=== PATIENT | male | born 1955 | race Caucasian/White ===

== ENCOUNTER → 2016-06-29 | Outpatient (CLI) | payer OTHER ==
--- NOTE | 2016-06-29 23:14 | MR ---
EXAMINATION TYPE: MR hip RT wo con DATE OF EXAM: 06/29/2016 4:17 PM COMPARISON: NONE HISTORY: Neoplasm related pain, Weakness Standard multiplanar, multisequence MRI departmental protocol Multiplanar, multisequence images of the right hip were acquired. FINDINGS: Hip joint spaces are fairly well-maintained for age. I see no bony destructive process. The re is no sign of hip joint effusion. There is no evidence of a fracture. There is no evidence of pelv ic mass. There is fluid signal in the scrotum on the right side could relate to hydrocele. Sacroiliac joints appear normal. IMPRESSION: Negative MR scan of the right hip. No evidence of hip dysplasia or avascular necrosis. No sign of met astatic disease. Possible right-sided scrotal hydrocele.
== END | disposition home or self-care (01) ==
LOC: RADMRIMAIN 15:25
PROVIDERS: ATTEND Registered Nurse Oncology
DX: M25.551 Pain in right hip (principal)

== ENCOUNTER → 2016-08-11 | Outpatient (CLI) | payer OTHER ==
[2016-08-11 11:48] LABS: Blood Urea Nitrogen 14 mg/dL (9-20); Non-African American GFR(MDRD) >60 (>60 ml/min/1.73 sqM)
--- NOTE | 2016-08-11 13:20 | CT ---
EXAMINATION TYPE: CT chest w con DATE OF EXAM: 08/11/2016 12:21 PM COMPARISON: NONE HISTORY: Patient has no complaints at time of study. Follow up study for known lung CA. CT DLP: 277.6 mGycm Automated exposure control for dose reduction was used. CONTRAST: CT scan of the chest is performed with IV Contrast, patient injected with 100 mL of Omnipaque 300. FINDINGS: LUNGS: 3 spiculated lesions are noted. The lingular lesion is stable. The right middle lobe lesion is slightly decreased in size and now measures approximately 2.4 x 1.5 x 2 cm, on previous exam it enrique ured approximately 2.6 x 2.2 x 2 cm. The right upper lobe lesion measures approximately 5.3 x 5.3 x 4 .5 cm and on previous exam measured approximately 4.9 x 4.4 x 6 cm. The configuration of the right up per lobe lesion is somewhat different, there are extensive spiculated margins with extensions to the pleura and mediastinum, right hilum. Right hilar nodes, subcarinal no show similar appearance. There are coronary artery calcifications. Ascending aorta measures approximately 4.2 cm. There are coronary artery calcifications. No pleural or pericardial effusion. The adrenal glands show associated soft t issue densities bilaterally similar to prior exam. Liver shows low attenuation. Calcifications are as sociated with the spleen. IMPRESSION: Interval changes as described. MEDIASTINUM: There are no greater than 1 cm hilar or mediastinal lymph nodes. No pericardial effusi on is seen. AORTA: No additional significant abnormality is seen. OTHER: No additional significant abnormality is seen. IMPRESSION:
== END | disposition home or self-care (01) ==
LOC: RADCTMAIN 10:55
PROVIDERS: ATTEND Internal Medicine Hematology & Oncology
DX: C34.90 Malignant neoplasm of unspecified part of unspecified bronchus or lung (principal); I25.10 Atherosclerotic heart disease of native coronary artery without angina pectoris
CPT/HCPCS: 82565; 84520; 71260; 36415; Q9967

== ENCOUNTER 2016-09-11 09:48 | Inpatient (IN) | payer OTHER ==
[2016-09-11] MEDS ORDERED: ACETAMINOPHEN IV (For NPO) 1,000 MG in EMPTY BAG 1 BAG IVPB STA (10:17)
[2016-09-11] MEDS ORDERED: RX INFO: IV CONTRAST WAS GIVEN 1 EACH MISC MISCELLANE PRN (10:18)
--- NOTE | 2016-09-11 10:20 | ED ---
General Adult HPI - General Chief complaint: Nausea/Vomiting/Diarrhea Stated complaint: vomiting Time Seen by Provider: 09/11/16 10:14 Source: patient, family, RN notes reviewed Mode of arrival: ambulatory Limitations: no limitations - History of Present Illness Initial comments: Patient is a pleasant 21-year-old male presenting to the emergency department for not feeling well. Symptoms have been present for over a week. Patient feels weak all over. Patient is fatigued and achy. Patient has been vomiting. Decreased oral intake. Patient has some mild abdominal discomfort. Mild cough. No dyspnea. No confusion or isolated area of weakness. - Related Data Home Medications Medication Instructions Recorded Confirmed Hydrocortisone [Hydrocortisone] 10 mg PO BID 09/11/16 09/11/16 Allergies Allergy/AdvReac Type Severity Reaction Status Date / Time No Known Allergies Allergy Verified 09/11/16 11:15 Review of Systems ROS Statement: Those systems with pertinent positive or pertinent negative responses have been documented in the HPI. ROS Other: All systems not noted in ROS Statement are negative. Constitutional: Reports: fever, chills Eyes: Denies: eye pain ENT: Denies: ear pain Respiratory: Reports: cough. Denies: dyspnea Cardiovascular: Denies: chest pain Endocrine: Reports: fatigue Gastrointestinal: Reports: abdominal pain, nausea, vomiting Genitourinary: Denies: dysuria Musculoskeletal: Denies: back pain Skin: Denies: rash Neurological: Denies: weakness Past Medical History Past Medical History: COPD Additional Past Medical History / Comment(s): lung cx. History of Any Multi-Drug Resistant Organisms: None Reported Past Surgical History: No Surgical Hx Reported Past Psychological History: No Psychological Hx Reported Smoking Status: Current every day smoker Past Alcohol Use History: Heavy Additional Past Alcohol Use History / Comment(s): has not drank in three months General Exam Limitations: no limitations General appearance: alert, other (Patient appears uncomfortable) Head exam: Present: atraumatic Eye exam: Present: other (Right eye is atrophied) ENT exam: Present: mucous membranes dry Neck exam: Present: normal inspection Respiratory exam: Present: normal lung sounds bilaterally Cardiovascular Exam: Present: tachycardia GI/Abdominal exam: Present: soft, tenderness (Mild diffuse). Absent: distended , guarding, rebound, rigid Extremities exam: Present: normal inspection. Absent: pedal edema, calf tenderness Neurological exam: Present: alert. Absent: motor sensory deficit Psychiatric exam: Present: normal affect, normal mood Skin exam: Present: normal color Course Vital Signs 09/11/16 09/11/16 09/11/16 10:07 10:09 11:09 Temperature 101.3 F H Pulse Rate 118 H 115 H 111 H Respiratory 20 18 Rate Blood Pressure 86/50 97/66 103/70 O2 Sat by Pulse 98 99 100 Oximetry 09/11/16 09/11/16 12:00 13:00 Temperature Pulse Rate 100 92 Respiratory Rate Blood Pressure 107/70 97/58 O2 Sat by Pulse 100 100 Oximetry EKG Findings - EKG Comments: EKG Findings:: Sinus tachycardia 112. Normal intervals. Left axis. Normal QRS. Normal ST-T. Medical Decision Making - Medical Decision Making Patient reevaluated and improved. Blood pressure stable. Patient still feels somewhat dehydrated and nauseated. Case discussed in detail with Dr. Winston, who will admit his patient. Case also discussed with Dr. Willis who recommends antibiotics and will evaluate. - Lab Data Result diagrams: 09/11/16 11:20 09/11/16 11:20 Lab Results 09/11/16 09/11/16 09/11/16 Range/Units 10:30 11:20 11:20 WBC 11.1 H (3.8-10.6) k/uL RBC 3.90 L (4.30-5.90) m/uL Hgb 11.2 L (13.0-17.5) gm/dL Hct 36.6 L (39.0-53.0) % MCV 94.0 (80.0-100.0) fL MCH 28.8 (25.0-35.0) pg MCHC 30.6 L (31.0-37.0) g/dL RDW 16.3 H (11.5-15.5) % Plt Count 270 (150-450) k/uL Neutrophils % 70 % Lymphocytes % 14 % Monocytes % 7 % Eosinophils % 6 % Basophils % 1 % Neutrophils # 7.7 (1.3-7.7) k/uL Lymphocytes # 1.6 (1.0-4.8) k/uL Monocytes # 0.8 (0-1.0) k/uL Eosinophils # 0.7 (0-0.7) k/uL Basophils # 0.1 (0-0.2) k/uL Hypochromasia Moderate Anisocytosis Slight PT (9.0-12.0) sec INR (<1.1) APTT (22.0-30.0) sec Sodium (137-145) mmol/L Potassium (3.5-5.1) mmol/L Chloride (98-107) mmol/L Carbon Dioxide (22-30) mmol/L Anion Gap mmol/L BUN (9-20) mg/dL Creatinine (0.66-1.25) mg/dL Est GFR (MDRD) Af Amer (>60 ml/min/1.73 sqM) Est GFR (MDRD) Non-Af (>60 ml/min/1.73 sqM) Glucose (74-99) mg/dL Plasma Lactic Acid Moshe 1.6 (0.7-2.0) mmol/L Calcium (8.4-10.2) mg/dL Total Bilirubin (0.2-1.3) mg/dL AST (17-59) U/L ALT (21-72) U/L Alkaline Phosphatase (38-126) U/L Total Creatine Kinase (55-170) U/L CK-MB (CK-2) (0.0-2.4) ng/mL CK-MB (CK-2) Rel Index Troponin I (0.000-0.034) ng/mL Total Protein (6.3-8.2) g/dL Albumin (3.5-5.0) g/dL Cortisol ug/dL Urine Color Urine Appearance (Clear) Urine pH (5.0-8.0) Ur Specific [place] (1.001-1.035) Urine Protein (Negative) Urine Glucose (UA) (Negative) Urine Ketones (Negative) Urine Blood (Negative) Urine Nitrite (Negative) Urine Bilirubin (Negative) Urine Urobilinogen (<2.0) mg/dL Ur Leukocyte Esterase (Negative) Urine RBC (0-5) /hpf Urine WBC (0-5) /hpf Ur Squamous Epith Cells (0-4) /hpf Urine Bacteria (None) /hpf Hyaline Casts (0-2) /lpf Urine Mucus (None) /hpf Influenza Type A RNA Not Detected (Not Detectd) Influenza Type B (PCR) Not Detected (Not Detectd) 09/11/16 09/11/16 09/11/16 Range/Units 11:20 11:20 11:20 WBC (3.8-10.6) k/uL RBC (4.30-5.90) m/uL Hgb (13.0-17.5) gm/dL Hct (39.0-53.0) % MCV (80.0-100.0) fL MCH (25.0-35.0) pg MCHC (31.0-37.0) g/dL RDW (11.5-15.5) % Plt Count (150-450) k/uL Neutrophils % % Lymphocytes % % Monocytes % % Eosinophils % % Basophils % % Neutrophils # (1.3-7.7) k/uL Lymphocytes # (1.0-4.8) k/uL Monocytes # (0-1.0) k/uL Eosinophils # (0-0.7) k/uL Basophils # (0-0.2) k/uL Hypochromasia Anisocytosis PT 12.5 H (9.0-12.0) sec INR 1.3 (<1.1) APTT 26.5 (22.0-30.0) sec Sodium 132 L (137-145) mmol/L Potassium 5.5 H (3.5-5.1) mmol/L Chloride 94 L (98-107) mmol/L Carbon Dioxide 22 (22-30) mmol/L Anion Gap 16 mmol/L BUN 35 H (9-20) mg/dL Creatinine 1.70 H (0.66-1.25) mg/dL Est GFR (MDRD) Af Amer 50 (>60 ml/min/1.73 sqM) Est GFR (MDRD) Non-Af 41 (>60 ml/min/1.73 sqM) Glucose 77 (74-99) mg/dL Plasma Lactic Acid Moshe (0.7-2.0) mmol/L Calcium 9.9 (8.4-10.2) mg/dL Total Bilirubin 1.3 (0.2-1.3) mg/dL AST 25 (17-59) U/L ALT 27 (21-72) U/L Alkaline Phosphatase 112 (38-126) U/L Total Creatine Kinase 28 L (55-170) U/L CK-MB (CK-2) <0.2 (0.0-2.4) ng/mL CK-MB (CK-2) Rel Index Troponin I <0.012 (0.000-0.034) ng/mL Total Protein 7.7 (6.3-8.2) g/dL Albumin 3.9 (3.5-5.0) g/dL Cortisol 1 ug/dL Urine Color Urine Appearance (Clear) Urine pH (5.0-8.0) Ur Specific [place] (1.001-1.035) Urine Protein (Negative) Urine Glucose (UA) (Negative) Urine Ketones (Negative) Urine Blood (Negative) Urine Nitrite (Negative) Urine Bilirubin (Negative) Urine Urobilinogen (<2.0) mg/dL Ur Leukocyte Esterase (Negative) Urine RBC (0-5) /hpf Urine WBC (0-5) /hpf Ur Squamous Epith Cells (0-4) /hpf Urine Bacteria (None) /hpf Hyaline Casts (0-2) /lpf Urine Mucus (None) /hpf Influenza Type A RNA (Not Detectd) Influenza Type B (PCR) (Not Detectd) 09/11/16 Range/Units 13:30 WBC (3.8-10.6) k/uL RBC (4.30-5.90) m/uL Hgb (13.0-17.5) gm/dL Hct (39.0-53.0) % MCV (80.0-100.0) fL MCH (25.0-35.0) pg MCHC (31.0-37.0) g/dL RDW (11.5-15.5) % Plt Count (150-450) k/uL Neutrophils % % Lymphocytes % % Monocytes % % Eosinophils % % Basophils % % Neutrophils # (1.3-7.7) k/uL Lymphocytes # (1.0-4.8) k/uL Monocytes # (0-1.0) k/uL Eosinophils # (0-0.7) k/uL Basophils # (0-0.2) k/uL Hypochromasia Anisocytosis PT (9.0-12.0) sec INR (<1.1) APTT (22.0-30.0) sec Sodium (137-145) mmol/L Potassium (3.5-5.1) mmol/L Chloride (98-107) mmol/L Carbon Dioxide (22-30) mmol/L Anion Gap mmol/L BUN (9-20) mg/dL Creatinine (0.66-1.25) mg/dL Est GFR (MDRD) Af Amer (>60 ml/min/1.73 sqM) Est GFR (MDRD) Non-Af (>60 ml/min/1.73 sqM) Glucose (74-99) mg/dL Plasma Lactic Acid Moshe (0.7-2.0) mmol/L Calcium (8.4-10.2) mg/dL Total Bilirubin (0.2-1.3) mg/dL AST (17-59) U/L ALT (21-72) U/L Alkaline Phosphatase (38-126) U/L Total Creatine Kinase (55-170) U/L CK-MB (CK-2) (0.0-2.4) ng/mL CK-MB (CK-2) Rel Index Troponin I (0.000-0.034) ng/mL Total Protein (6.3-8.2) g/dL Albumin (3.5-5.0) g/dL Cortisol ug/dL Urine Color Yellow Urine Appearance Clear (Clear) Urine pH 5.5 (5.0-8.0) Ur Specific [place] 1.044 H (1.001-1.035) Urine Protein Trace H (Negative) Urine Glucose (UA) Negative (Negative) Urine Ketones 1+ H (Negative) Urine Blood Small H (Negative) Urine Nitrite Negative (Negative) Urine Bilirubin Negative (Negative) Urine Urobilinogen <2.0 (<2.0) mg/dL Ur Leukocyte Esterase Negative (Negative) Urine RBC 5 (0-5) /hpf Urine WBC 2 (0-5) /hpf Ur Squamous Epith Cells 2 (0-4) /hpf Urine Bacteria Rare H (None) /hpf Hyaline Casts 10 H (0-2) /lpf Urine Mucus Rare H (None) /hpf Influenza Type A RNA (Not Detectd) Influenza Type B (PCR) (Not Detectd) - Radiology Data Radiology results: report reviewed (Computed tomography scan of the abdomen and pelvis shows chronic cystitis. Stable nonspecific adrenal masses. Gallbladder prominence without evidence of biliary obstruction or gallstone.), image reviewed (Chest x-ray shows large right upper lobe mass redemonstrated.) Disposition Clinical Impression: Dehydration, Vomiting Disposition: ADMITTED IP TO THIS HOSP
[2016-09-11] MEDS: SODIUM CHLORIDE 0.9% 500 ML IV SCH ×4 (10:53→14:00)
[2016-09-11 11:42] LABS: Anisocytosis Slight; Basophils # (A) 0.1 k/uL (0-0.2); Basophils % (A) 1 %; CH 29.2; Eosinophils # (A) 0.7 k/uL (0-0.7); Eosinophils % (A) 6 %; HCT 36.6 % (39.0-53.0); HDW 3.19; HGB 11.2 gm/dL (13.0-17.5); Hypochromasia Moderate; Luc % (Auto) 3; Lymphocytes # (A) 1.6 k/uL (1.0-4.8); Lymphocytes % (A) 14 %; MCH 28.8 pg (25.0-35.0); MCHC 30.6 g/dL (31.0-37.0); Mean Platelet Volume 7.1; Monocytes # (A) 0.8 k/uL (0-1.0); Monocytes % (A) 7 %; Neutrophils # (A) 7.7 k/uL (1.3-7.7); Neutrophils % (A) 70 %; RDW 16.3 % (11.5-15.5); WBC 11.1 k/uL (3.8-10.6); WBC (Perox) 11.48
[2016-09-11 11:49] LABS: INR 1.3 (<1.1); Partial Thromboplastin Time 26.5 sec (22.0-30.0); Prothrombin Time 12.5 sec (9.0-12.0)
[2016-09-11] MEDS ORDERED: MORPHINE SULFATE 4 MG/ML SYRINGE IVP STA ×2 (11:58→15:10)
[2016-09-11 11:59] LABS: Calcium 9.9 mg/dL (8.4-10.2); Potassium 5.5 mmol/L (3.5-5.1); Total Bilirubin 1.3 mg/dL (0.2-1.3); Total Protein 7.7 g/dL (6.3-8.2)
[2016-09-11 12:09] LABS: Creatine Kinase 28 U/L (55-170)
[2016-09-11 12:22] LABS: Creatine Kinase MB <0.2 ng/mL (0.0-2.4); Troponin I <0.012 ng/mL (0.000-0.034)
--- NOTE | 2016-09-11 12:37 | XR ---
EXAMINATION TYPE: XR chest 2V DATE OF EXAM: 09/11/2016 12:34 PM COMPARISON: Chest CT August 11, 2016. HISTORY: Vomiting and fever TECHNIQUE: Frontal and lateral views of the chest are obtained. FINDINGS: There is underlying emphysematous change with persistent spiculated mass or neoplasm in the right upper lobe. There is no focal air space opacity, pleural effusion, or pneumothorax seen. The cardiac silhouette size is within normal limits. The osseous structures are intact. IMPRESSION: Chronic emphysematous change with right upper lobe mass/neoplasm redemonstrated. No sign ificant change from prior. No suspicious acute infiltrate is seen.
--- NOTE | 2016-09-11 12:44 | CT ---
EXAMINATION TYPE: CT abdomen pelvis w con DATE OF EXAM: 09/11/2016 12:26 PM COMPARISON: 03/24/2016 HISTORY: Patient poor historian. Patient complains of back pain and "stomach messed up." CT DLP: 1346 mGycm Automated exposure control for dose reduction was used. CONTRAST: CT scan of the abdomen pelvis is performed with IV Contrast, patient injected with 100 mL of Omnipaqu e 300. FINDINGS- LUNG BASES-subsegmental changes are seen involving both lungs compatible with chronic scar or atelect asis. LIVER/GB-gallbladder measures 7 cm and appears to be prominent in size. No biliary dilation. Liver is homogeneous. PANCREAS- No gross abnormality is seen. SPLEEN-splenic granuloma noted. ADRENALS-stable bilateral adrenal masses most likely related to incidental adenomas. KIDNEYS/BLADDER- no hydronephrosis nephrolithiasis or renal mass. BOWEL- no bowel dilatation. Bowel gas pattern nonspecific. Stomach is nondistended and limited. LYMPH NODES- No greater than 1cm abdominal or pelvic lymph nodes areappreciated. OSSEOUS STRUCTURES-curvature of the spine with degenerative disc disease noted. OTHER- bladder wall thickening correlate for cystitis. Vascular calcification seen with aorta of nor mal caliber. IMPRESSION- 1. Correlate for chronic cystitis 2. Stable nonspecific adrenal masses most likely related to adrenal adenoma 3. Prominence of the gallbladder measuring 7 cm without evidence of biliary obstruction or gallstone. Correlate clinically.
[2016-09-11 13:56] LABS: Appearance,Urine Clear (Clear); Bacteria,Urine Rare /hpf; Bilirubin,Urine Negative (Negative); Glucose,Urine (UA) Negative (Negative); Ketones,Urine 1+ (Negative); Leukocyte Esterase,Urine Negative (Negative); Mucus,Urine Rare /hpf; Nitrite,Urine Negative (Negative); PH, Urine 5.5 (5.0-8.0); Particle Count 2633; Protein,Urine Trace (Negative); RBC,Urine 5 /hpf (0-5); Specific Gravity,Urine 1.044 (1.001-1.035); Squamous Epithelial Cell,Urine 2 /hpf (0-4); UA Billing (MACRO vs. MICRO) MICRO; Urobilinogen,Urine <2.0 mg/dL (<2.0); WBC,Urine 2 /hpf (0-5)
[2016-09-11] MEDS ORDERED: NALOXONE 0.4 MG/ML 1 ML VIAL IV PRN (15:19)
[2016-09-11] MEDS ORDERED: MORPHINE SULFATE 4 MG/ML SYRINGE IV PRN (15:19)
[2016-09-11] MEDS ORDERED: PIPERACILLIN-TAZOBACTAM 3.375 GM in DEXTROSE/WATER 1 50ML.BAG IVPB STA (15:21)
--- NOTE | 2016-09-11 16:53 | US ---
EXAMINATION TYPE: US gallbladder DATE OF EXAM: 09/11/2016 4:00 PM COMPARISON: CT abdomen pelvis from earlier today CLINICAL HISTORY: Gallbladder prominence. EXAM MEASUREMENTS: Liver Length: 16.9 cm Gallbladder Wall: 0.3 cm CBD: 0.6 cm Right Kidney: 9.6 x 4.0 x 4.6 cm TECHNOLOGIST IMPRESSION: extensive overlying midline bowel gas, patient having a lot of pain unable to well hold his breath or position properly for test Pancreas: portions visualized wnl, partially obscured by bowel gas but appears unremarkable on recen t CT Liver: limited visualization , visualized portions WNL Gallbladder: there appears to be some dependant sludge Evidence for sonographic Simpson's sign: No CBD: wnl Right Kidney: wnl Exam is suboptimal due to patient being unable to hold breath as well as shadowing from overlying bow el gas. Gallbladder is not completely anechoic cannot rule out dependent sludge. No shadowing mobile gallstones, pericholecystic fluid collection, or abnormal gallbladder wall thickening. IMPRESSION: Probable limited dependent gallbladder sludge but no ultrasound evidence for acute cholec ystitis.
[2016-09-11] MEDS: SODIUM CHLORIDE 0.9% 1,000 ML IV SCH ×2 (17:04→23:03)
[2016-09-11 19:36] LABS: Creatine Kinase 38 U/L (55-170)
[2016-09-11 19:49] LABS: Creatine Kinase MB <0.2 ng/mL (0.0-2.4); Troponin I <0.012 ng/mL (0.000-0.034)
[2016-09-11] MEDS: PIPERACILLIN-TAZOBACTAM 3.375 GM in DEXTROSE/WATER 1 50ML.BAG IVPB SCH (23:00)
[2016-09-12 01:14] LABS: Creatine Kinase 41 U/L (55-170)
[2016-09-12 01:27] LABS: Creatine Kinase MB 0.2 ng/mL (0.0-2.4); Troponin I <0.012 ng/mL (0.000-0.034)
[2016-09-12] MEDS: PANTOPRAZOLE 40 MG/10 ML VIAL IV SCH (07:47)
[2016-09-12] MEDS: PIPERACILLIN-TAZOBACTAM 3.375 GM in DEXTROSE/WATER 1 50ML.BAG IVPB SCH ×3 (07:48→23:12)
[2016-09-12] MEDS: MORPHINE SULFATE 2 MG/ML SYRINGE IVP PRN ×2 (08:14→15:40)
[2016-09-12 09:09] LABS: Anisocytosis Slight; Basophils % (A) 1 %; CH 29.3; CHCM 31.1; Eosinophils # (A) 0.6 k/uL (0-0.7); Eosinophils % (A) 8 %; HCT 31.2 % (39.0-53.0); HDW 3.21; Hypochromasia Moderate; Luc # (Auto) 0.19; Luc % (Auto) 3; Lymphocytes # (A) 0.9 k/uL (1.0-4.8); Lymphocytes % (A) 13 %; MCH 29.3 pg (25.0-35.0); MCHC 31.2 g/dL (31.0-37.0); Mean Platelet Volume 7.1; Monocytes # (A) 0.6 k/uL (0-1.0); Monocytes % (A) 9 %; Neutrophils # (A) 4.8 k/uL (1.3-7.7); Neutrophils % (A) 68 %; RBC 3.32 m/uL (4.30-5.90); RDW 16.1 % (11.5-15.5); WBC 7.1 k/uL (3.8-10.6); WBC (Perox) 7.64
[2016-09-12 09:11] LABS: HGB 9.7 gm/dL (13.0-17.5)
[2016-09-12 10:16] LABS: ALT 22 U/L (21-72); AST 24 U/L (17-59); Alkaline Phosphatase 98 U/L (38-126); Anion Gap 12 mmol/L; Blood Urea Nitrogen 22 mg/dL (9-20); Calcium 9.6 mg/dL (8.4-10.2); Carbon Dioxide 24 mmol/L (22-30); Chloride 96 mmol/L (98-107); Glucose 66 mg/dL (74-99); Non-African American GFR(MDRD) 52 (>60 ml/min/1.73 sqM); Potassium 4.9 mmol/L (3.5-5.1); Sodium 132 mmol/L (137-145); Total Protein 6.6 g/dL (6.3-8.2)
[2016-09-12] MEDS: SODIUM CHLORIDE 0.9% 1,000 ML IV SCH ×2 (10:47→21:46)
--- NOTE | 2016-09-12 12:06 | HP ---
SUBJECTIVE: This is a 61-year-old white male with a history of right upper mass, possible lung cancer, came into the ER; however, has been sick for past week, weak all over, fatigued. He has been vomiting, decreased oral intake, mid abdominal discomfort. Mild cough. No confusion. Was found to have dehydration, hyperkalemia the ER, was admitted to the hospital. Home medications include hydrocortisone 10 mg b.i.d. ALLERGIES: Negative. REVIEW OF SYSTEMS: Fourteen-point review of systems negative except for as mentioned in the HPI. PULMONARY: Has a right upper lobe mass, is being followed by Dr. Melendrez. OPHTHALMOLOGIC: Negative. ENT: Negative. CONSTITUTIONAL: Negative. : Negative. MUSCULOSKELETAL: Negative. SKIN: Negative. NEURO: Negative. He has a history of lung cancer, seen by Dr. Wayne Melendrez with history of COPD, but every day smoker, heavy alcohol, although he denies drinking for 3 months. PHYSICAL EXAM: Vital signs are mentioned above. He is alert. OPHTHALMALOGIC: Pupils equal, round, react to light and accommodation. ENT: External ear canals within normal limits. NECK: Supple. RESPIRATORY: Normal lung sounds. CARDIOVASCULAR: Tachycardiac. Heart: S1, S2. EXTREMITIES: Normal on inspection. No pedal edema. No calf tenderness. NEUROLOGIC: Alert and oriented x3. PSYCHIATRIC: Fair mood and affect. SKIN: Normal color. Temperature is 101.3, pulse rate is in the mid 100s, respirations 18 to 20, blood pressures are 80s to 103 over 50s to 70s. O2 sat 98% to 100% on room air, pulse rate 92 to 100, blood pressure as mentioned 97 to 107 over 70 to 58. White count 11.1, hemoglobin is 11.2. Sodium 132, potassium 5.5, BUN 35, creatinine 1.7. Chest x-ray a shows right upper lobe mass. CAT scan shows no significant sludge in the gallbladder. ASSESSMENT: 1. Acute viral syndrome. 2. Acute gastroenteritis, dehydration and vomiting. 3. Lung cancer. 4. Generalized weakness. 5. Hyponatremia. 6. Hyperkalemia. Will check him for the flu. Repeat labs in the morning and consult Dr. Melendrez.
--- NOTE | 2016-09-12 13:47 | P.PN ---
Subjective 61-year-old male being seen this morning on rounds. Patient continues to report generalized abdominal discomfort sensation and nausea no active emesis No stool states urinating no difficulty Patient presented to the emergency room with a chief complaint of feeling nauseated fatigued achy all over with decreased oral intake. Patient reports he is having some mild abdominal discomfort. Patient states the symptoms have been ongoing for approximately a week patient has no surgical history. Patient states is being treated for right upper lobe mass lung cancer. In the emergency room the temp was elevated to 11.3 patient have an ultrasound of the gallbladder report was reviewed indicates probable limited dependent gallbladder sludge but no ultrasound evidence for acute cholecystitis Objective - Vital Signs Vital signs: Vital Signs Temp 99.1 F 09/12/16 07:00 Pulse 90 09/12/16 07:00 Resp 16 09/12/16 07:00 BP 87/56 09/12/16 07:00 Pulse Ox 98 09/12/16 07:00 Intake & Output 09/11/16 09/12/16 09/12/16 18:59 06:59 18:59 Intake Total 100 Output Total 1300 Balance -1200 Intake: Oral 100 Output: Urine 1300 Other: Voiding Method Toilet Toilet Urinal # Voids 1 - Exam Physical exam 61-year-old male pleasant oriented 3 Lungs essentially clear no cough noted Heart S1-S2 audible and regular Abdomen diffuse tenderness across the abdominal wall bowel tones present sensation of nausea no active emesis no stool Extremities no edema - Labs CBC & Chem 7: 09/12/16 08:27 09/12/16 08:27 Labs: Abnormal Lab Results - Last 24 Hours (Table) 09/11/16 09/12/16 09/12/16 Range/Units 18:43 00:00 08:27 RBC 3.32 L (4.30-5.90) m/uL Hgb 9.7 L D (13.0-17.5) gm/dL Hct 31.2 L (39.0-53.0) % RDW 16.1 H (11.5-15.5) % Lymphocytes # 0.9 L (1.0-4.8) k/uL Sodium (137-145) mmol/L Chloride (98-107) mmol/L BUN (9-20) mg/dL Creatinine (0.66-1.25) mg/dL Glucose (74-99) mg/dL Total Creatine Kinase 38 L 41 L (55-170) U/L Albumin (3.5-5.0) g/dL 09/12/16 Range/Units 08:27 RBC (4.30-5.90) m/uL Hgb (13.0-17.5) gm/dL Hct (39.0-53.0) % RDW (11.5-15.5) % Lymphocytes # (1.0-4.8) k/uL Sodium 132 L (137-145) mmol/L Chloride 96 L (98-107) mmol/L BUN 22 H (9-20) mg/dL Creatinine 1.40 H (0.66-1.25) mg/dL Glucose 66 L (74-99) mg/dL Total Creatine Kinase (55-170) U/L Albumin 3.3 L (3.5-5.0) g/dL Assessment and Plan Plan: Impression Present on admission nausea abdominal pain suspect acute viral syndrome Percent admission oral intake nausea vomiting clinical dehydration suspect due to acute gastroenteritis cancer with positive tissue biopsies March 2016 right lung mass cancer Ultrasound of the gallbladder shows no significant sludge in the gallbladder Present on admission mild hyponatremia and hyperkalemia suspect due to clinical dehydration poor oral intake Present on admission acute renal failure suspect due to poor oral intake clinical dehydration Low cortisol level present on admission Plan Continue IV hydration Resume home meds as appropriate Consult Dr. Melendrez known to service Consult Dr. Pgaan recommendations if antibiotics are indicated Surgical consultation Dr. Ro DVT and GI prophylaxis Follow up on urine blood cultures The above dictated assessment and findings were discussed with []. Impression and the plan of care have been dictated as directed. Renata Bowens nurse practitioner acting as a scribe for for [].
[2016-09-12 15:21] VITALS: BMI 23.3
--- NOTE | 2016-09-12 18:37 | P.CONS ---
History of Present Illness - Reason for Consult Consult date: 09/12/16 oncology care Requesting physician: Jose Leon - Chief Complaint progressive hip pain, vomiting, fever - History of Present Illness Mr. Bhandari is a very pleasant male pt of Dr. Johnson who was seen in consult at [facility] 03/25/16 when he presented with chest pain, back pain and 40lb weight loss in 3-4 months. He was found to have a very large RUL mass, 7.4 x 7.0 x 7.0, with RML and AUGUSTO lesions, bilateral adrenal mets were suspected. He had diagnostic endobronchial biopsy with Dr. Lucas 03/28/16 revealing small cell carcinoma. Staging MRI of the brain did revel 1-2 small lesions, pt was completely asymptomatic, plan was to treat systemically and do WBRT after chemo , he was started on carboplatin and etoposide. In May treatment follow up CT chest showed significant improvement, head MRI, stable. In Jun 2016 pt presented with R hip pain, MRI was negative for bone mets, pt used pain meds with decent pain control. He completed 6 cycles of chemo early Jul, he was seen in follow up, CT chest showed stable disease, he was then referred for WBRT , which he completed 1-2 weeks ago. 4-5 days ago he began experiencing right hip pain, radiating down the leg, sharp, difficult to walk or sit, pain meds were no longer helping, the he starting vomiting so his oral intake diminished to near nothing, he was not able to get his symptoms under control so he came to hospital. He had a fever on admit, he denied any known fevers prior to admit. He does feel a little better since admission. Mild oral irritation, no sore throat, mild nauase but no vomiting today, no SOB, cough, his abd is sore from throwing up, he denies black ,bloody or coffee ground emesis, no hematuria , dysuria, diarrhea, he can have trouble with constipation at times, he denies numbness or tingling in the right leg, no swelling. Review of Systems All systems: negative Constitutional: Reports as per HPI Past Medical History Past Medical History: Cancer, COPD, Osteoarthritis (OA) Additional Past Medical History / Comment(s): DX LUNG CANCER - NO SX BUT HAS HAD CHEMO AND RADIATION(COMPLETED 10 TX) ,"ADDISONS DISEASE", RT EYE BLIND SINCE CHILDHOOD NOT SURE OF CAUSE, COPD MENTIONED PER PAST MED HX BUT PT DID'NT HAVE KNOWLEGE OF THIS. History of Any Multi-Drug Resistant Organisms: None Reported Past Surgical History: No Surgical Hx Reported Additional Past Surgical History / Comment(s): BRONCHOSOCPY Past Anesthesia/Blood Transfusion Reactions: No Reported Reaction Past Psychological History: No Psychological Hx Reported Additional Psychological History / Comment(s): PT IS INDEPENDANT, LIVES WITH HIS SISTER.ONE [employer], NO OUTSIDE SERVICES Smoking Status: Former smoker Past Alcohol Use History: Heavy Additional Past Alcohol Use History / Comment(s): STARTED SMOKING AT AGE 12 WORKED HIS WAY UP TO 4 PPD, QUIT , PAST HEAVY USE OF ALCOHOL, QUIT Past Drug Use History: None Reported - Past Family History Mother Family Medical History: Cancer Additional Family Medical History / Comment(s): BREAST CANCER Father Family Medical History: Myocardial Infarction ([place]) Medications and Allergies Home Medications Medication Instructions Recorded Confirmed Type Hydrocortisone [Hydrocortisone] 10 mg PO BID 09/11/16 09/11/16 History Allergies Allergy/AdvReac Type Severity Reaction Status Date / Time No Known Allergies Allergy Verified 09/11/16 11:15 Physical Exam Vitals: Vital Signs Temp Pulse Resp BP BP Pulse Ox 09/12/16 15:00 96.9 F L 98 20 98/57 97 09/12/16 07:00 99.1 F 90 16 87/56 98 09/11/16 22:24 96.3 F L 101 H 20 104/66 97 Intake and Output 09/12/16 09/12/16 09/12/16 06:59 14:59 22:59 Intake Total 100 Output Total 600 Balance -500 Intake: Oral 100 Output: Urine 600 Other: Voiding Method Toilet # Voids 1 Weight 78.018 kg Patient Weight 09/13/16 06:59 Weight 78.018 kg - Constitutional General appearance: average body habitus, cooperative, no acute distress - EENT right eye lens damage, EOMs intact. Reddened oropharynx Eyes: anicteric sclerae - Neck Neck: no lymphadenopathy - Respiratory Respiratory: bilateral: CTA - Cardiovascular Rhythm: regular Heart sounds: normal: S1, S2 leg Peripheral Edema: bilateral: None - Gastrointestinal General gastrointestinal: no absent bowel sounds, no decreased bowel sounds, no distended, no hepatomegaly, no hyperactive bowel sounds, normal bowel sounds, no organomegaly, no rigid, no scaphoid, soft, no splenomegaly, no tenderness, no umbilical hernia, no ventral hernia - Integumentary skin changes to head from radiation - Neurologic Neurologic: CNII-XII intact - Musculoskeletal Musculoskeletal: strength equal bilaterally - Psychiatric Psychiatric: A&O x's 3, appropriate affect, intact judgment & insight Results CBC & Chem 7: 09/12/16 08:27 09/12/16 08:27 Labs: Abnormal Lab Results - Last 24 Hours (Table) 09/11/16 09/12/16 09/12/16 Range/Units 18:43 00:00 08:27 RBC 3.32 L (4.30-5.90) m/uL Hgb 9.7 L D (13.0-17.5) gm/dL Hct 31.2 L (39.0-53.0) % RDW 16.1 H (11.5-15.5) % Lymphocytes # 0.9 L (1.0-4.8) k/uL Sodium (137-145) mmol/L Chloride (98-107) mmol/L BUN (9-20) mg/dL Creatinine (0.66-1.25) mg/dL Glucose (74-99) mg/dL Total Creatine Kinase 38 L 41 L (55-170) U/L Albumin (3.5-5.0) g/dL 09/12/16 Range/Units 08:27 RBC (4.30-5.90) m/uL Hgb (13.0-17.5) gm/dL Hct (39.0-53.0) % RDW (11.5-15.5) % Lymphocytes # (1.0-4.8) k/uL Sodium 132 L (137-145) mmol/L Chloride 96 L (98-107) mmol/L BUN 22 H (9-20) mg/dL Creatinine 1.40 H (0.66-1.25) mg/dL Glucose 66 L (74-99) mg/dL Total Creatine Kinase (55-170) U/L Albumin 3.3 L (3.5-5.0) g/dL Chest x-ray: report reviewed CT scan - abdomen: report reviewed CT scan - pelvis: report reviewed US - abdomen: report reviewed Assessment and Plan (1) Small cell lung carcinoma Status: Chronic (2) Metastatic cancer to brain Status: Chronic (3) Dehydration Narrative/Plan: Pt being hydrated, being followed by IM Status: Acute (4) Vomiting Narrative/Plan: Improved since admit, agree with clear liquid diet and advance slowly Status: Acute (5) Anemia aplastic aregenerative Narrative/Plan: No acute intervention, Hgb drop since admission likely due to hemoconcentration. Recheck CBC in AM Status: Chronic (6) Fever Narrative/Plan: NO fevers since starting abx, pancultures so far negative. Dr. Pagan following Status: Acute Plan: Pt has completed chemotherapy and radiation, he will be due for f/u images soon , he has appt with Dr. Johnson on 10/12, will check with Rad/Onc as he likely follows up with them sooner. Will request imaging of the hip due to progressive nature of pain to ensure no metastatic disease.
--- NOTE | 2016-09-12 19:38 | XR ---
EXAMINATION TYPE: XR femur RT DATE OF EXAM: 09/12/2016 7:31 PM COMPARISON: NONE HISTORY: Chronic pain TECHNIQUE: 4 views FINDINGS: I see no fracture nor dislocation. Hip joint and knee joint appear intact. There is no sign of knee joint effusion. IMPRESSION: Negative right femur exam.
--- NOTE | 2016-09-12 19:41 | XR ---
EXAMINATION TYPE: XR Hip Complete RT DATE OF EXAM: 09/12/2016 7:31 PM COMPARISON: 03/25/2016 HISTORY: Chronic pain TECHNIQUE: 2 views FINDINGS: I see no fracture nor dislocation. Hip joint space is normal. Sacroiliac joint appears norm al. IMPRESSION: Normal right hip. No change.
--- NOTE | 2016-09-12 21:45 | P.GSCN ---
History of Present Illness Consult date: 09/12/16 Reason for Consult: abdominal pain History of present illness: we were consulted to see this patient for abdominal pain. He has a relatively recent diagnosis of metastatic small cell lung cancer. He has undergone both chemotherapy and radiation therapy to the brain. He has apparently had fairly good success with his treatment thus far. He was seen in the hospital in June with complaints of pain in the right hip radiating down the right leg. Workup for bony metastasis at that time was benign. He comes back to the hospital complaining of abdominal pain associated with episodes of nausea and vomiting. The pain radiates down the right lower abdomen into the groin and hip as well. He does have pain in the back as well. A CAT scan was performed which showed a slightly distended gallbladder.no inflammatory changes were described. An ultrasound was then performed which showed some sludge but no thickening noted. The patient is somewhat vague when he describes the location on the right side of his abdomen for his pain. He was having emesis that was nonbloody. He has chronic constipation last bowel movement 2 days ago. His appetite is slightly diminished.review of the CAT scan does suggest some possible thickening of the cecum and ascending and proximal transverse colon. Patient denies diarrhea. Review of Systems The patient denies any acute changes in his vision or hearing, no dysphagia or odynophagia, no chest pain or shortness of breath, no dysuria or hematuria, no headache, no runny nose, no rectal bleeding or melena, no unexplained weight loss Past Medical History Past Medical History: Cancer, COPD, Osteoarthritis (OA) Additional Past Medical History / Comment(s): DX LUNG CANCER - NO SX BUT HAS HAD CHEMO AND RADIATION(COMPLETED 10 TX) ,"ADDISONS DISEASE", RT EYE BLIND SINCE CHILDHOOD NOT SURE OF CAUSE, COPD MENTIONED PER PAST MED HX BUT PT DID'NT HAVE KNOWLEGE OF THIS. History of Any Multi-Drug Resistant Organisms: None Reported Past Surgical History: No Surgical Hx Reported Additional Past Surgical History / Comment(s): BRONCHOSOCPY Past Anesthesia/Blood Transfusion Reactions: No Reported Reaction Past Psychological History: No Psychological Hx Reported Additional Psychological History / Comment(s): PT IS INDEPENDANT, LIVES WITH HIS SISTER.ONE [employer], NO OUTSIDE SERVICES Smoking Status: Former smoker Past Alcohol Use History: Heavy Additional Past Alcohol Use History / Comment(s): STARTED SMOKING AT AGE 12 WORKED HIS WAY UP TO 4 PPD, QUIT , PAST HEAVY USE OF ALCOHOL, QUIT Past Drug Use History: None Reported - Past Family History Mother Family Medical History: Cancer Additional Family Medical History / Comment(s): BREAST CANCER Father Family Medical History: Myocardial Infarction ([place]) Medications and Allergies Home Medications Medication Instructions Recorded Confirmed Type Hydrocortisone [Hydrocortisone] 10 mg PO BID 09/11/16 09/11/16 History Allergies Allergy/AdvReac Type Severity Reaction Status Date / Time No Known Allergies Allergy Verified 09/11/16 11:15 Surgical - Exam Vital Signs Temp Pulse Resp BP Pulse Ox 101.3 F H 118 H 20 86/50 98 09/11/16 10:07 09/11/16 10:07 09/11/16 10:07 09/11/16 10:07 09/11/16 10:07 Physical exam: General: Well-developed, well-nourished HEENT: Normocephalic, sclerae nonicteric Abdomen: mild to moderate right mid abdominal tenderness including mild tenderness in the right lower quadrant as well as the right upper quadrant, nondistended, no palpable hernia Extremities: No edema Neuro: Alert and oriented Results - Labs 09/12/16 08:27 09/12/16 08:27 Abnormal Lab Results - Last 24 Hours (Table) 09/12/16 09/12/16 09/12/16 Range/Units 00:00 08:27 08:27 RBC 3.32 L (4.30-5.90) m/uL Hgb 9.7 L D (13.0-17.5) gm/dL Hct 31.2 L (39.0-53.0) % RDW 16.1 H (11.5-15.5) % Lymphocytes # 0.9 L (1.0-4.8) k/uL Sodium 132 L (137-145) mmol/L Chloride 96 L (98-107) mmol/L BUN 22 H (9-20) mg/dL Creatinine 1.40 H (0.66-1.25) mg/dL Glucose 66 L (74-99) mg/dL Total Creatine Kinase 41 L (55-170) U/L Albumin 3.3 L (3.5-5.0) g/dL Diabetes panel 09/12/16 Range/Units 08:27 Sodium 132 L (137-145) mmol/L Potassium 4.9 (3.5-5.1) mmol/L Chloride 96 L (98-107) mmol/L Carbon Dioxide 24 (22-30) mmol/L BUN 22 H (9-20) mg/dL Creatinine 1.40 H (0.66-1.25) mg/dL Glucose 66 L (74-99) mg/dL Calcium 9.6 (8.4-10.2) mg/dL AST 24 (17-59) U/L ALT 22 (21-72) U/L Alkaline Phosphatase 98 (38-126) U/L Total Protein 6.6 (6.3-8.2) g/dL Albumin 3.3 L (3.5-5.0) g/dL Calcium panel 09/12/16 Range/Units 08:27 Calcium 9.6 (8.4-10.2) mg/dL Albumin 3.3 L (3.5-5.0) g/dL Pituitary panel 09/12/16 Range/Units 08:27 Sodium 132 L (137-145) mmol/L Potassium 4.9 (3.5-5.1) mmol/L Chloride 96 L (98-107) mmol/L Carbon Dioxide 24 (22-30) mmol/L BUN 22 H (9-20) mg/dL Creatinine 1.40 H (0.66-1.25) mg/dL Glucose 66 L (74-99) mg/dL Calcium 9.6 (8.4-10.2) mg/dL Adrenal panel 09/12/16 Range/Units 08:27 Sodium 132 L (137-145) mmol/L Potassium 4.9 (3.5-5.1) mmol/L Chloride 96 L (98-107) mmol/L Carbon Dioxide 24 (22-30) mmol/L BUN 22 H (9-20) mg/dL Creatinine 1.40 H (0.66-1.25) mg/dL Glucose 66 L (74-99) mg/dL Calcium 9.6 (8.4-10.2) mg/dL Total Bilirubin 1.0 (0.2-1.3) mg/dL AST 24 (17-59) U/L ALT 22 (21-72) U/L Alkaline Phosphatase 98 (38-126) U/L Total Protein 6.6 (6.3-8.2) g/dL Albumin 3.3 L (3.5-5.0) g/dL Assessment and Plan (1) Abdominal pain Narrative/Plan: given the relatively diffuse nature of his right-sided pain in the CAT scan findings of possible thickening of the colon would treat for possible typhlitis. Continue antibiotics. Continue clear liquid diet. Underlying cholecystitis has not been completely excluded however the patient does have tenderness in the right lower quadrant as well. We'll follow closely with you. Status: Acute
[2016-09-12] MEDS: CLOTRIMAZOLE TROCHE 10 MG TROCHE MUCOUS MEM SCH ×2 (21:46→22:05)
[2016-09-12] MEDS: DOCUSATE 100 MG CAP PO SCH (21:47)
[2016-09-13] MEDS: ACETAMINOPHEN TAB 325 MG TAB PO PRN ×2 (01:30→10:53)
[2016-09-13] MEDS: SODIUM CHLORIDE 0.9% 1,000 ML IV SCH ×2 (04:42→12:08)
[2016-09-13] MEDS: PIPERACILLIN-TAZOBACTAM 3.375 GM in DEXTROSE/WATER 1 50ML.BAG IVPB SCH ×2 (08:29→16:59)
[2016-09-13] MEDS: PANTOPRAZOLE 40 MG/10 ML VIAL IV SCH (08:33)
[2016-09-13] MEDS: CLOTRIMAZOLE TROCHE 10 MG TROCHE MUCOUS MEM SCH ×3 (08:34→22:45)
[2016-09-13] MEDS: DOCUSATE 100 MG CAP PO SCH ×2 (08:34→21:10)
--- NOTE | 2016-09-13 10:53 | CONS ---
DATE OF CONSULTATION: 09/12/2016 REASON FOR CONSULTATION: Fever. HISTORY OF PRESENT ILLNESS: The patient is a 61-year-old male with a past medical history significant for metastatic non-small lung cancer with mets to the brain for the patient has received chemotherapy as well as radiation therapy. The patient presenting to the ER with a chief complaint of vomiting and decreased oral intake and unable to keep anything down. His symptoms have been going on for about 2 to 3 days prior to presentation to the hospital. Patient complaining of some abdominal pain mostly in the upper abdominal area, intensity of 4-5/10 and no radiation. Patient denies significant diarrhea. The patient did spike a fever of 101.3 degrees Fahrenheit. Further blood work-up did including a CT of abdomen and pelvis that shows an enlarged gallbladder. This has been followed by an ultrasound of the gallbladder which shows limited gallbladder sludge but no ultrasound evidence of any acute cholecystitis. The patient did have blood cultures obtained. He has been treated with Zosyn. The patient did have an elevated white count 11.1 on admission. I was asked to see the patient for further recommendations regarding antibiotic therapy. The patient did mention that he had some vomiting, slightly improved though. Currently denies having any diarrhea. He denies any chest pain or shortness of breath. No cough. REVIEW OF SYSTEMS: CONSTITUTIONAL: Positive for weakness along with fever. EYES: No complaint. HEENT: No complaint. RESPIRATORY: No complaint. CARDIOVASCULAR: No complaint. GENITOURINARY: No complaint. GASTROINTESTINAL: As per HPI. MUSCULOSKELETAL: No complaint. INTEGUMENTARY: No complaint. PSYCHOLOGICAL: No complaint. ENDOCRINE: No complaint. NEUROLOGIC: No complaint. Past medical history significant for metastatic lung cancer with METS to the brain, osteoarthritis, COPD, right eye blindness since childhood. Past surgical history of bronchoscopy with biopsy. SOCIAL HISTORY: Positive for smoking. He has been smoking since age 12, quit back in February of 2016. Did have history of heavy alcohol abuse, quit back in January 2016. FAMILY HISTORY: Mother with history of breast cancer. Father with history of [place]. ALLERGIES: No known drug allergies. Medications currently include the patient is on: 1. Tylenol. 2. Mycelex. 3. Colace. 4. Morphine sulfate. 5. Narcan. 6. Piptazobactam. On examination, blood pressure is 98/57 with a pulse of 90, temperature is 96.9, he is 97% on room air. General description is a middle-age male lying in bed in no distress. No tachypnea or accessory muscle of respiration use. HEENT examination shows no pallor. There is no scleral icterus. Oral mucosa membranes dry. NECK: Trachea central. There is no thyromegaly. LUNGS: Unlabored breathing. Clear to auscultation anteriorly. HEART: S1 and S2. Regular rate and rhythm. ABDOMEN: Soft. No tenderness. Minimally tender in the right upper quadrant. No guarding or rigidity. EXTREMITIES: No edema of feet. SKIN EXAMINATION: No rash or mass palpable. NEUROLOGICAL: Patient is awake, alert, oriented times three. Mood and affect normal. LABS: Hemoglobin 9.7, white count 11.1 on admission and is down to 7.1 with a BUN of 22, creatinine 1.40. Liver enzymes have been normal. Blood culture obtained, currently pending. Urine is so far negative. DIAGNOSTIC IMPRESSION AND PLAN: Patient admitted to the hospital with sepsis in a patient who did have a fever with elevated white count and did have some tachycardia on admission. Source is more likely abdominal with a question of possible gall bladder related. Will be less likely typhlitis as the patient did not have significant diarrhea and was morbidly tender in the lower quadrant area but though cannot be entirely excluded , abnormality seen on the CT by the surgeon. PLAN: 1. The patient will continue with IV antibiotic in the form of Zosyn to which his fever and white count responded. 2. Increase IV fluids. 3. Will follow up on the clinical condition and cultures to further adjust the medication if needed. Thank you for this consultation. We will follow this patient along with you. JN
--- NOTE | 2016-09-13 11:47 | P.PN ---
Subjective Principal diagnosis: Abdominal pain Patient still having pain in the right abdomen. He states the pain radiates down as far as his knee on the right leg. When I tried to have the patient localize better the right upper quadrant and right lower quadrant he states that right in the middle. It is no different than yesterday. Denies nausea or vomiting. His appetite is diminished. No bowel function. White blood cell count normal. Objective - Vital Signs Vital signs: Vital Signs Temp 97.6 F 09/13/16 07:00 Pulse 98 09/13/16 08:00 Resp 16 09/13/16 08:00 BP 90/48 09/13/16 07:00 Pulse Ox 98 09/13/16 07:00 Intake & Output 09/12/16 09/13/16 09/13/16 18:59 06:59 18:59 Intake Total 1420 Output Total 750 Balance 670 Weight 78.018 kg Intake: IV 1320 Sodium Chloride 0.9% 1, 1320 000 ml @ 110 mls/hr IV . Q9H6M [facility] Rx#:[id number] Oral 100 Output: Urine 750 Other: Voiding Method Toilet Urinal Urinal # Voids 1 1 - Exam Abdomen: Soft, nondistended, mild right-sided tenderness, no rebound or guarding - Labs CBC & Chem 7: 09/12/16 08:27 09/12/16 08:27 Assessment and Plan (1) Abdominal pain Narrative/Plan: Infectious disease consultation noted. Will order a HIDA scan without CCK to evaluate cystic duct obstruction. Not convinced at this point that patient's pain is related to his gallbladder given the tenderness in the right lower quadrant and radiation down the right leg. We'll follow closely with you. Status: Acute
[2016-09-13] MEDS ORDERED: MORPHINE SULFATE 2 MG/ML SYRINGE IVP PRN (11:59)
[2016-09-13] MEDS ORDERED: SENNOSIDES 8.6 MG TAB PO PRN (12:03)
[2016-09-13] MEDS: POLYETHYLENE GLYCOL 3350 17 GM POWD.PACK PO SCH (12:07)
[2016-09-13] MEDS: SENNOSIDES 8.6 MG TAB PO SCH ×2 (12:07→21:11)
--- NOTE | 2016-09-13 12:52 | P.PN ---
Subjective 61-year-old being seen this morning on rounds patient continues to report having generalized abdominal pain difficult to pinpoint the area. Patient states he has chronic back pain takes [place] at home. Patient's currently being followed by surgical service recommendations reviewed. The plan is to do a HIDA scan without CCK to evaluate cystic duct obstruction. Surgery indicates there is no convincing evidence at this point that the patient's pain is related to his gallbladder given that the patient has tenderness to the right lower quadrant that radiates down the right leg Additionally patient was seen by hematology oncology. Patient's primary oncologist is Dr. starr who has been treating the patient for a large right upper lung mass with bilateral adrenal metastases suspected. Patient has completed 6 cycles of chemo early July 2016 a follow-up chest x-ray showed stable disease and then patient has been referred to WBRT. Patient reportedly has completed the treatment about 2 weeks ago. 4-5 days ago he started experiencing the right hip pain which he states has radiating down his legs difficult to box it. Patient states pain medication were and was not really helping him and he was having a sensation of nausea with poor oral intake came into the emergency room for the above-mentioned symptoms. Hematology oncology indicated that they will they will request imaging of the hip due to progressive nature of the pain to ensure that there is no metastatic disease. Patient has completed his chemoradiation therapy is due for follow-up injury images soon he has an appointment with DR STARR on October 12 the hospice case manager is pursuing the discharge plan. The patient is indicating that he is interested in subacute rehab patient's preference is [facility] Objective - Vital Signs Vital signs: Vital Signs Temp 97.6 F 09/13/16 07:00 Pulse 98 09/13/16 08:00 Resp 16 09/13/16 08:00 BP 90/48 09/13/16 07:00 Pulse Ox 98 09/13/16 07:00 Intake & Output 09/12/16 09/13/16 09/13/16 18:59 06:59 18:59 Intake Total 1420 Output Total 750 Balance 670 Weight 78.018 kg Intake: IV 1320 Sodium Chloride 0.9% 1, 1320 000 ml @ 110 mls/hr IV . Q9H6M [facility] Rx#:[id number] Oral 100 Output: Urine 750 Other: Voiding Method Toilet Urinal Urinal # Voids 1 1 - Exam Physical exam 61-year-old male pleasant oriented 3 sitting up in bed reports having chronic lower back pain with pain in the right hip goes down to the right leg which he states is chronic pain medication at home has not been helping" Lungs essentially clear no cough noted sats are documented 98% Heart S1-S2 audible and regular denying chest pain Abdomen diffuse tenderness across the abdominal wall bowel tones present sensation of nausea no active emesis no stool Extremities no edema upper or lower extremities - Labs CBC & Chem 7: 09/12/16 08:27 09/12/16 08:27 Assessment and Plan Plan: Impression Present on admission nausea abdominal pain suspect acute viral syndrome Percent admission oral intake nausea vomiting clinical dehydration suspect due to acute gastroenteritis History of cancer with positive tissue biopsies March 2016 right lung mass cancer Ultrasound of the gallbladder shows no significant sludge in the gallbladder Present on admission mild hyponatremia and hyperkalemia suspect due to clinical dehydration poor oral intake Present on admission acute renal failure suspect due to poor oral intake clinical dehydration Low cortisol level present on admission 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 Anemia aplastic aregenerative chronic no acute intervention hemoglobin dropped since admission likely due to hemoconcentration Present on admission acute Fever pancultures negative infectious disease following Former smoker greater than 4 packs a day quit February 2016 greater than a 40 year history with probable COPD not diagnosed History of chronic alcoholism quit January 2016 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 not sure of the etiology Right hip pain with complete right hip x-ray and femur showing no fracture no dislocation negative imaging Plan Continue IV hydration Resume home meds as appropriate Follow up on the HIDA scan Consult Dr. Pagan recommendations if antibiotics are indicated PT OT eval Possible subacute rehab hospice case manager pursuing the discharge plan DVT and GI prophylaxis Follow up on urine & blood cultures The above dictated assessment and findings were discussed with []. Impression and the plan of care have been dictated as directed. Renata Bowens nurse practitioner acting as a scribe for for [].
--- NOTE | 2016-09-13 16:54 | NM ---
EXAMINATION TYPE: NM hepatobiliary w EF DATE OF EXAM: 09/13/2016 4:47 PM COMPARISON: Gallbladder ultrasound from 2 days ago. HISTORY: Right-sided abdominal pain. TECHNIQUE: After the intravenous administration of 5.5 mCi Tc 99m Mebrofenin hepatobiliary scintigrap hy is performed. Immediate images post injection. FINDINGS: There is satisfactory initial accumulation of tracer by the liver. The gallbladder is visualized wit hin 90 minutes. The small bowel activity is noted within 35 minutes. At 90 minutes 8 ounces of oral ensure plus is given to mimic CCK and gallbladder ejection fraction is calculated at 0% %, diminishe d from the normal range. Therefore there is no scintigraphic evidence of cystic or common bile duct obstruction to suggest acute cholecystitis. IMPRESSION: There is essentially no gallbladder contraction or ejection on stimulus or oral Essure gi jazmine suggesting hypokinesia or akinesia
[2016-09-13] MEDS ORDERED: HYDROCORTISONE 10 MG TAB PO SCH (21:00)
[2016-09-13] MEDS: HYDROCORTISONE 10 MG TAB PO SCH (21:13)
[2016-09-13] MEDS: FAMOTIDINE 20 MG TAB PO SCH (21:13)
[2016-09-14] MEDS: PIPERACILLIN-TAZOBACTAM 3.375 GM in DEXTROSE/WATER 1 50ML.BAG IVPB SCH ×3 (01:50→15:31)
[2016-09-14] MEDS: SODIUM CHLORIDE 0.9% 1,000 ML IV SCH ×3 (01:51→15:34)
--- NOTE | 2016-09-14 08:06 | PN ---
DATE OF SERVICE: 09/13/2016 REASON FOR FOLLOWUP: Fever and vomiting and a question of possible acalculous cholecystitis. INTERVAL HISTORY: The patient is afebrile. He did mention he had some episodes of vomiting this morning. He did have some pain in the right-sided abdominal area. Denies having any diarrhea or constipation. Denies having any chest pain or shortness of breath or cough. On examination, blood pressure is 112/60 with a pulse of 97, temperature 98.1.He is 95% on room air. General description is a middle-age male lying in bed in no distress. RESPIRATORY SYSTEM: Unlabored breathing. Clear to auscultation anteriorly. HEART: S1, S2. Regular rate and rhythm. ABDOMEN: Soft. He is mildly tender right upper quadrant area and minimal guarding. No rigidity. EXTREMITIES: No edema of the feet. LABS: Hemoglobin 9.7, white count 7.1 with a BUN of 22, creatinine 1.4. HIDA scan with biliary akinesia. DIAGNOSTIC IMPRESSION AND PLAN: Patient with vomiting and a fever with a question of possible acalculous cholecystitis. As the patient did have evidenced of biliary dyskinesia, the patient is being followed by surgery. Will continue the patient on Zosyn at this point. Continue supportive care. FLAKITOD
[2016-09-14] MEDS: POLYETHYLENE GLYCOL 3350 17 GM POWD.PACK PO SCH (08:19)
[2016-09-14] MEDS: SENNOSIDES 8.6 MG TAB PO SCH ×2 (08:19→20:06)
[2016-09-14] MEDS: DOCUSATE 100 MG CAP PO SCH ×2 (08:19→20:06)
[2016-09-14] MEDS: CLOTRIMAZOLE TROCHE 10 MG TROCHE MUCOUS MEM SCH ×3 (08:19→22:49)
[2016-09-14] MEDS: HYDROCORTISONE 10 MG TAB PO SCH (08:20)
[2016-09-14 09:34] LABS: ALT 17 U/L (21-72); AST 24 U/L (17-59); Alkaline Phosphatase 115 U/L (38-126); Amylase 32 U/L (30-110); Anion Gap 14 mmol/L; Blood Urea Nitrogen 12 mg/dL (9-20); Calcium 9.6 mg/dL (8.4-10.2); Carbon Dioxide 25 mmol/L (22-30); Chloride 97 mmol/L (98-107); Glucose 93 mg/dL (74-99); Non-African American GFR(MDRD) 60 (>60 ml/min/1.73 sqM); Potassium 5.5 mmol/L (3.5-5.1); Sodium 136 mmol/L (137-145); Total Bilirubin 0.8 mg/dL (0.2-1.3); Total Protein 6.9 g/dL (6.3-8.2)
[2016-09-14] MEDS: HYDROcodone/APAP 7.5-325MG 1 EACH TAB PO PRN ×2 (09:52→20:18)
--- NOTE | 2016-09-14 11:54 | P.NPCON ---
History of Present Illness - Reason for Consult acute renal failure - History of Present Illness Reason for consultation: Low cortisol levels History of present illness: Patient is a 61-year-old male seen in renal consultation for low cortisol level. Patient has history of lung cancer with adrenal metastases. He has history of adrenal insufficiency related to adrenal metastasis and was maintained on Cortef 10 mg twice daily as an outpatient. This admission is cortisol level is noted to be low. Patient presented to the hospital with vomiting and fever. He was noted to have biliary dyskinesia and he's been followed by surgery. His oral intake has been poor. He is currently maintained on normal saline at 110 mL an hour and renal function is also improving. His creatinine was elevated at 1.7 and is down to 1.23 today with IV fluids. Sodium levels also 132 and is up to 136 today. His blood pressures are on the lower side in the systolic 80s to 90s on admission and are now in the 90s to 100s. Patient is not a very reliable historian. He is nonoliguric. Vital signs are stable. General: The patient appeared well nourished and normally developed. HEENT: Head exam is unremarkable. Neck is without jugular venous distension. LUNGS: Lungs are clear to auscultation and percussion. Breath sounds decreased. HEART: Rate and Rhythm are regular. First and second heart sounds normal. No murmurs, rubs or gallops. ABDOMEN: Abdominal exam reveals normal bowel sounds. Non-tender and non- distended. No evidence of peritonitis. EXTREMITITES: No clubbing, cyanosis, or edema. Past Medical History Past Medical History: Cancer, COPD, Osteoarthritis (OA) Additional Past Medical History / Comment(s): DX LUNG CANCER - NO SX BUT HAS HAD CHEMO AND RADIATION(COMPLETED 10 TX) ,"ADDISONS DISEASE", RT EYE BLIND SINCE CHILDHOOD NOT SURE OF CAUSE, COPD MENTIONED PER PAST MED HX BUT PT DID'NT HAVE KNOWLEGE OF THIS. History of Any Multi-Drug Resistant Organisms: None Reported Past Surgical History: No Surgical Hx Reported Additional Past Surgical History / Comment(s): BRONCHOSOCPY Past Anesthesia/Blood Transfusion Reactions: No Reported Reaction Past Psychological History: No Psychological Hx Reported Additional Psychological History / Comment(s): PT IS INDEPENDANT, LIVES WITH HIS SISTER.ONE [employer], NO OUTSIDE SERVICES Smoking Status: Former smoker Past Alcohol Use History: Heavy Additional Past Alcohol Use History / Comment(s): STARTED SMOKING AT AGE 12 WORKED HIS [address] UP TO 4 PPD, QUIT , PAST HEAVY USE OF ALCOHOL, QUIT Past Drug Use History: None Reported - Past Family History Mother Family Medical History: Cancer Additional Family Medical History / Comment(s): BREAST CANCER Father Family Medical History: Myocardial Infarction (VT) Medications and Allergies Home Medications Medication Instructions Recorded Confirmed Type Hydrocortisone [Hydrocortisone] 10 mg PO BID 09/11/16 09/11/16 History Allergies Allergy/AdvReac Type Severity Reaction Status Date / Time No Known Allergies Allergy Verified 09/11/16 11:15 Physical Exam Vitals: Vital Signs Temp Pulse Pulse Resp BP Pulse Ox 09/14/16 07:00 97.4 F L 85 18 106/70 97 09/13/16 23:00 99.4 F 99 18 99/59 97 09/13/16 18:10 98.1 F 97 16 112/60 95 09/13/16 15:49 98 84 16 Intake and Output 09/13/16 09/14/16 09/14/16 22:59 06:59 14:59 Intake Total 240 120 Output Total 600 Balance 240 -480 Intake: Oral 240 120 Output: Urine 600 Other: Voiding Method Urinal # Voids 1 1 Results - Lab Results Most recent lab results Calcium 9.6 mg/dL (8.4-10.2) 09/14/16 09:01 09/12/16 08:27 09/14/16 09:01 Assessment and Plan Plan: Assessment: #1. Nonoliguric acute kidney injury mostly prerenal in nature secondary to intravascular volume depletion related to poor oral intake and vomiting. Improving with IV hydration. Creatinine down to 1.23. Peaked at 1.7 this admission. #2. Hypovolemic hyponatremia improving with IV fluids. #3. History of adrenal insufficiency secondary to adrenal metastasis. The hyponatremia as well as hypotension seem to be mote related to intravascular volume depletion related to vomiting and not adrenal crisis at this time. #4. History of lung cancer. #5. Anemia. Rule out iron deficiency. Plan: Continue with normal saline to be run at 100 mL an hour. Encourage oral intake. Surgery following. I will increase dose of hydrocortisone to 50 mg IV every 8 hours for now and taper over the next few days. Check iron studies. Repeat electrolytes in the morning. Thank you for the consultation. I will continue to follow the patient with you during his hospital stay.
--- NOTE | 2016-09-14 13:08 | P.PN ---
Subjective 61-year-old male being seen on rounds this morning continues to report "just not feeling well poor appetite there's been no reports of nausea vomiting. Grips did see patient for the low cortisone level. Patient does have a history of lung cancer with adrenal metastasis. The adrenal insufficiency is likely related to the adrenal metastasis. Patient has been maintained on Cortef 10 twice a day in the outpatient setting this was increased the day before to 20 twice a day repeat cortisol level remains low. Did review nephrology's recommendations they're recommending increasing hydrocortisone to 50 milligram IV every 8 for today and they will tapered over the next couple days. And check iron studies. Additionally the patient's being followed by surgical service HIDA scan done yesterday essentially no gallbladder contraction or injection on stimulus suggesting hypokinesis or akinesis. There is no evidence to show common bile duct obstruction to suggest acute cholecystitis Objective - Vital Signs Vital signs: Vital Signs Temp 97.4 F L 09/14/16 07:00 Pulse 85 09/14/16 07:00 Resp 18 09/14/16 07:00 BP 106/70 09/14/16 07:00 Pulse Ox 97 09/14/16 07:00 Intake & Output 09/13/16 09/14/16 09/14/16 18:59 06:59 18:59 Intake Total 490 360 Output Total 600 600 Balance -110 -240 Intake: IV 490 Piperacillin-Tazobactam 3 50 .375 gm In Dextrose/Water 1 50ml.bag @ 12.5 mls/hr IVPB Q8HR NICKY Rx#: [id number] Sodium Chloride 0.9% 1, 440 000 ml @ 110 mls/hr IV . Q9H6M NICKY Rx#:[id number] Oral 360 Output: Urine 600 600 Other: Voiding Method Urinal # Voids 1 # Bowel Movements 1 - Exam Physical exam 61-year-old male resting in bed oriented 3 cooperative. Did note the patient ran a low-grade temp at midnight 99.4 temp this morning 97.4 blood pressures been running on the low side 99/59 Lungs diminished at the bases otherwise adequate air movement no cough noted no shortness of breath on room air sats are 97% Heart S1-S2 audible and regular denying chest pain Abdomen nontender not distended soft bowel tones present reports poor oral intake no appetite no reports of nausea vomiting no document stooling Extremities no abdominal pain - Labs CBC & Chem 7: 09/12/16 08:27 09/14/16 09:01 Labs: Abnormal Lab Results - Last 24 Hours (Table) 09/14/16 Range/Units 09:01 Sodium 136 L (137-145) mmol/L Potassium 5.5 H (3.5-5.1) mmol/L Chloride 97 L (98-107) mmol/L ALT 17 L (21-72) U/L Assessment and Plan Plan: Impression Present on admission nausea abdominal pain suspect acute viral syndrome Percent admission oral intake nausea vomiting clinical dehydration suspect due to acute gastroenteritis History of cancer with positive tissue biopsies March 2016 right lung mass cancer Ultrasound of the gallbladder shows no significant sludge in the gallbladder Present on admission mild hyponatremia and hyperkalemia suspect due to clinical dehydration poor oral intake Present on admission acute renal failure suspect due to poor oral intake clinical dehydration Low cortisol level present on admission 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 Anemia aplastic aregenerative chronic no acute intervention hemoglobin dropped since admission likely due to hemoconcentration Present on admission acute Fever pancultures negative infectious disease following Former smoker greater than 4 packs a day quit February 2016 greater than a 40 year history with probable COPD not diagnosed History of chronic alcoholism quit January 2016 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 not sure of the etiology Right hip pain with complete right hip x-ray and femur showing no fracture no dislocation negative imaging Anemia rule out iron deficiency History of adrenal insufficiency secondary to adrenal metastasis Hypovolemic, hyponatremia present on admission likely related to intravascular volume depletion due to vomiting no evidence of adrenal crisis Present on admission low cortisol level suspect due to adrenal insufficiency due to adrenal metastasis Nonoliguric acute kidney injury mostly prerenal in nature secondary to intravascular volume depletion related to poor oral intake and vomiting. Improving with IV hydration. Creatinine down to 1.23. Peaked at 1.7 this admission. HIDA scan obtained on September 13 no evidence of cystic or common bile duct obstruction to suggest acute cholecystitis essentially no gallbladder contraction ejection fraction calculated at 0% suggestive of hypokinesis or akinesis Plan Nephrology's recommendations hydrocortisone 50 mg IV every 8 hours start now will taper over the next few days Continue IV hydration Resume home meds as appropriate Await surgical's eval abnormal HIDA scan with no evidence of cystic or common bile duct obstruction to suggest acute cholecystitis Consult Dr. Pagan recommendations if antibiotics are indicated PT OT eval Possible subacute rehab residential case manager pursuing the discharge plan DVT and GI prophylaxis The above dictated assessment and findings were discussed with Dr. Winston Impression and the plan of care have been dictated as directed. Renata Bowens nurse practitioner acting as a scribe for Dr. Winston
[2016-09-14] MEDS: HYDROCORTISONE SUCCINATE 100 MG/2 ML VIAL IV SCH ×2 (13:26→20:19)
--- NOTE | 2016-09-14 14:53 | P.PN ---
Subjective Principal diagnosis: Abdominal pain Patient still having right-sided pain. His HIDA scan showed no evidence of ejection fraction. Appetite remains diminished. Labs show no liver enzyme abnormalities. Objective - Vital Signs Vital signs: Vital Signs Temp 97.4 F L 09/14/16 07:00 Pulse 85 09/14/16 07:00 Resp 18 09/14/16 07:00 BP 106/70 09/14/16 07:00 Pulse Ox 97 09/14/16 07:00 Intake & Output 09/13/16 09/14/16 09/14/16 18:59 06:59 18:59 Intake Total 490 360 Output Total 600 600 Balance -110 -240 Intake: IV 490 Piperacillin-Tazobactam 3 50 .375 gm In Dextrose/Water 1 50ml.bag @ 12.5 mls/hr IVPB Q8HR NICKY Rx#: [id number] Sodium Chloride 0.9% 1, 440 000 ml @ 110 mls/hr IV . Q9H6M NICKY Rx#:[id number] Oral 360 Output: Urine 600 600 Other: Voiding Method Urinal # Voids 1 # Bowel Movements 1 - Exam Abdomen: Soft, right-sided tenderness, no rebound - Labs CBC & Chem 7: 09/12/16 08:27 09/14/16 09:01 Labs: Abnormal Lab Results - Last 24 Hours (Table) 09/14/16 09/14/16 Range/Units 09:01 09:01 Sodium 136 L (137-145) mmol/L Potassium 5.5 H (3.5-5.1) mmol/L Chloride 97 L (98-107) mmol/L Iron 19 L (49-181) ug/dL TIBC 190 L (261-462) ug/dL % Saturation 10.0 L (20-50) % Ferritin 703 H (18-464) ng/mL ALT 17 L (21-72) U/L Assessment and Plan (1) Abdominal pain Narrative/Plan: The HIDA scan results were discussed with the patient in detail. Potential that the patient's pain is coming from an etiology other than the gallbladder was discussed. Given those findings however and his persistent pain along with nausea and anorexia Will proceed with cholecystectomy. The risks of bleeding, infection, bile leak, common bile duct injury, conversion to an open procedure, retained common bile duct stone, potential findings of other etiologies to explain his pain, persistent pain, diarrhea, and anesthesia-related comp locations were discussed. He understands and wishes to proceed. Status: Acute
[2016-09-14] MEDS: FAMOTIDINE 20 MG TAB PO SCH (20:05)
[2016-09-15] MEDS: PIPERACILLIN-TAZOBACTAM 3.375 GM in DEXTROSE/WATER 1 50ML.BAG IVPB SCH ×4 (00:25→23:14)
[2016-09-15] MEDS: HYDROCORTISONE SUCCINATE 100 MG/2 ML VIAL IV SCH ×2 (03:43→19:16)
[2016-09-15] MEDS: SODIUM CHLORIDE 0.9% 1,000 ML IV SCH ×3 (03:46→21:21)
[2016-09-15 07:53] LABS: Glucose,Whole Blood 107 mg/dL (75-99)
--- NOTE | 2016-09-15 08:36 | PN ---
DATE OF SERVICE: 09/14/2016 Reason for follow-up is fever and a question of possible acalculous cholecystitis. INTERVAL HISTORY: The patient is afebrile. He has been breathing comfortably. Did have some pain on the right-sided abdominal area, some nausea but no further vomiting. Denies any chest pain, shortness of breath or cough. On examination, blood pressure is 114/72 with a pulse of 84, temperature 97.4. He is 97% on room air. General description is a middle-age male lying in bed in no distress. RESPIRATORY SYSTEM: Unlabored breathing. Clear to auscultation anteriorly. HEART: S1, S2 with regular rate and rhythm. ABDOMEN: Soft, minimally tender in the right upper quadrant area. LABS: Hemoglobin is 9.7, white count 7.1, BUN of 12, creatinine 1.23. Blood and urine cultures so far negative. DIAGNOSTIC IMPRESSION AND PLAN: Patient is the fever and vomiting with a question of possible acalculous cholecystitis. Patient is scheduled for possible cholecystectomy in the morning. The patient maintained on Zosyn to which his fever responded. Family present at beside. Their questions were answered.
--- NOTE | 2016-09-15 09:28 | P.PN ---
Subjective Patient is seen in follow-up for acute kidney injury and adrenal insufficiency. Patient has history of lung cancer with bilateral adrenal metastasis. He was maintained on Cortef 10 mg twice daily as an outpatient. This admission he presented with nausea and vomiting. He is maintained on IV fluids and renal function has been improving. Creatinine was down to 1.23 as of yesterday. His cortisol level was noted to be less than 1. He was started on hydrocortisone 50 mg IV every 8 hours on September 14. His blood pressures have improved and are now in the systolic 120s. He is currently nothing by mouth and scheduled for a cholecystectomy today. Denies chest pain or shortness of breath. Admits to good urine output. Vital signs are stable. General: The patient appeared well nourished and normally developed. HEENT: Head exam is unremarkable. Neck is without jugular venous distension. LUNGS: Lungs are clear to auscultation and percussion. Breath sounds decreased. HEART: Rate and Rhythm are regular. First and second heart sounds normal. No murmurs, rubs or gallops. ABDOMEN: Abdominal exam reveals normal bowel sounds. Non-tender and non- distended. No evidence of peritonitis. EXTREMITITES: No clubbing, cyanosis, or edema. Objective - Vital Signs Vital signs: Vital Signs Temp 96.9 F L 09/15/16 07:00 Pulse 91 09/15/16 07:00 Resp 16 09/15/16 07:00 BP 125/79 09/15/16 07:00 Pulse Ox 98 09/15/16 07:00 Intake & Output 09/14/16 09/15/16 09/15/16 18:59 06:59 18:59 Intake Total 480 480 Balance 480 480 Intake: Oral 480 480 Other: Voiding Method Toilet Urinal # Voids 3 1 # Bowel Movements 0 0 - Labs CBC & Chem 7: 09/12/16 08:27 09/14/16 09:01 Labs: Abnormal Lab Results - Last 24 Hours (Table) 09/14/16 09/14/16 09/15/16 Range/Units 09:01 09:01 07:50 Sodium 136 L (137-145) mmol/L Potassium 5.5 H (3.5-5.1) mmol/L Chloride 97 L (98-107) mmol/L POC Glucose (mg/dL) 107 H (75-99) mg/dL Iron 19 L (49-181) ug/dL TIBC 190 L (261-462) ug/dL % Saturation 10.0 L (20-50) % Ferritin 703 H (18-464) ng/mL ALT 17 L (21-72) U/L Assessment and Plan Plan: Assessment: #1. Nonoliguric acute kidney injury mostly prerenal in nature secondary to intravascular volume depletion related to poor oral intake and vomiting. Improving with IV hydration. Creatinine down to 1.23. Peaked at 1.7 this admission. #2. Hypovolemic hyponatremia improving with IV fluids. #3. History of adrenal insufficiency secondary to adrenal metastasis. The hyponatremia as well as hypotension seem to be more related to intravascular volume depletion related to vomiting; however a component of adrenal insufficiency may be present as well due to his acute illness. #4. History of lung cancer. #5. Anemia. Iron deficiency present. #6. Gallbladder dyskinesia scheduled for cholecystectomy today. Plan: Continue with normal saline to be run at 100 mL an hour. I will decrease dose of hydrocortisone to 50 mg IV every 12 hours for now and taper over the next few days. Ferrlicit 125 mg IV daily for 3 days. First dose today. Repeat electrolytes in the morning.
[2016-09-15 09:44] LABS: Anisocytosis Slight; Basophils % (A) 0 %; CH 28.4; CHCM 29.6; Eosinophils % (A) 0 %; HCT 35.8 % (39.0-53.0); HDW 3.42; HGB 10.3 gm/dL (13.0-17.5); Hypochromasia Marked; Luc # (Auto) 0.04; Luc % (Auto) 1; Lymphocytes # (A) 0.6 k/uL (1.0-4.8); Lymphocytes % (A) 9 %; MCH 27.5 pg (25.0-35.0); MCHC 28.8 g/dL (31.0-37.0); MCV 95.5 fL (80.0-100.0); Monocytes # (A) 0.2 k/uL (0-1.0); Monocytes % (A) 2 %; Neutrophils # (A) 5.9 k/uL (1.3-7.7); Neutrophils % (A) 88 %; Poikilocytosis Slight; RBC 3.75 m/uL (4.30-5.90); WBC 6.6 k/uL (3.8-10.6)
[2016-09-15] MEDS: POLYETHYLENE GLYCOL 3350 17 GM POWD.PACK PO SCH (09:50)
[2016-09-15] MEDS: SENNOSIDES 8.6 MG TAB PO SCH ×2 (09:50→21:20)
[2016-09-15] MEDS: DOCUSATE 100 MG CAP PO SCH ×2 (09:50→21:20)
[2016-09-15] MEDS: CLOTRIMAZOLE TROCHE 10 MG TROCHE MUCOUS MEM SCH ×3 (09:50→21:47)
[2016-09-15 10:01] LABS: ALT 13 U/L (21-72); AST 27 U/L (17-59); Alkaline Phosphatase 115 U/L (38-126); Anion Gap 16 mmol/L; Blood Urea Nitrogen 10 mg/dL (9-20); Calcium 9.8 mg/dL (8.4-10.2); Carbon Dioxide 23 mmol/L (22-30); Chloride 99 mmol/L (98-107); Glucose 113 mg/dL (74-99); Non-African American GFR(MDRD) >60 (>60 ml/min/1.73 sqM); Potassium 4.3 mmol/L (3.5-5.1); Sodium 138 mmol/L (137-145); Total Bilirubin 0.6 mg/dL (0.2-1.3); Total Protein 7.5 g/dL (6.3-8.2)
[2016-09-15 10:32] LABS: INR 1.3 (<1.1); Prothrombin Time 12.5 sec (9.0-12.0)
[2016-09-15] MEDS: SODIUM FERRIC GLUCONAT-SUCROSE 125 MG in SODIUM CHLORIDE 0.9% 100 ML IVPB SCH (11:01)
[2016-09-15] MEDS ORDERED: IV FLUID CONTINUATION 225 ML IV ONE (13:04)
--- NOTE | 2016-09-15 13:16 | P.PN ---
Subjective 61-year-old male being seen with family at bedside updated on plan of care patient is aware that he is scheduled for a cholecystectomy by surgical service today. Patient continues to report having no appetite with right side discomfort. This been no nausea vomiting no frequent stooling. Patient did have a HIDA scan done yesterday it showed no evidence of an ejection fraction Objective - Vital Signs Vital signs: Vital Signs Temp 97.7 F 09/15/16 13:01 Pulse 80 09/15/16 13:01 Resp 18 09/15/16 13:01 BP 132/88 09/15/16 13:01 Pulse Ox 99 09/15/16 13:01 Intake & Output 09/14/16 09/15/16 09/15/16 18:59 06:59 18:59 Intake Total 480 480 Balance 480 480 Weight 78.018 kg Intake: Oral 480 480 Other: Voiding Method Toilet Urinal # Voids 3 1 # Bowel Movements 0 0 - Exam Physical exam 61-year-old male resting in bed oriented 3 cooperative. Currently nothing by mouth scheduled for cholecystectomy today afebrile Lungs diminished at the bases otherwise adequate air movement no cough noted no shortness of breath on room air sats are 97% Heart S1-S2 audible and regular denying chest pain Abdomen nontender not distended soft, bowel tones present reports poor oral intake no appetite no reports of nausea vomiting no document stooling Extremities no edema noted - Labs CBC & Chem 7: 09/15/16 08:40 09/15/16 08:40 Labs: Abnormal Lab Results - Last 24 Hours (Table) 09/15/16 09/15/16 09/15/16 Range/Units 07:50 08:40 08:40 RBC 3.75 L (4.30-5.90) m/uL Hgb 10.3 L (13.0-17.5) gm/dL Hct 35.8 L (39.0-53.0) % MCHC 28.8 L (31.0-37.0) g/dL RDW 16.0 H (11.5-15.5) % Lymphocytes # 0.6 L (1.0-4.8) k/uL PT (9.0-12.0) sec Glucose 113 H (74-99) mg/dL POC Glucose (mg/dL) 107 H (75-99) mg/dL ALT 13 L (21-72) U/L 09/15/16 Range/Units 08:40 RBC (4.30-5.90) m/uL Hgb (13.0-17.5) gm/dL Hct (39.0-53.0) % MCHC (31.0-37.0) g/dL RDW (11.5-15.5) % Lymphocytes # (1.0-4.8) k/uL PT 12.5 H (9.0-12.0) sec Glucose (74-99) mg/dL POC Glucose (mg/dL) (75-99) mg/dL ALT (21-72) U/L Assessment and Plan Plan: Impression Present on admission nausea abdominal pain suspect acute viral syndrome Percent admission oral intake nausea vomiting clinical dehydration suspect due to acute gastroenteritis History of cancer with positive tissue biopsies March 2016 right lung mass cancer Ultrasound of the gallbladder shows no significant sludge in the gallbladder Present on admission mild hyponatremia and hyperkalemia suspect due to clinical dehydration poor oral intake Present on admission acute renal failure suspect due to poor oral intake clinical dehydration Low cortisol level present on admission 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 Anemia aplastic aregenerative chronic no acute intervention hemoglobin dropped since admission likely due to hemoconcentration Present on admission acute Fever pancultures negative infectious disease following Former smoker greater than 4 packs a day quit February 2016 greater than a 40 year history with probable COPD not diagnosed History of chronic alcoholism quit January 2016 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 not sure of the etiology Right hip pain with complete right hip x-ray and femur showing no fracture no dislocation negative imaging Anemia rule out iron deficiency History of adrenal insufficiency secondary to adrenal metastasis Hypovolemic, hyponatremia present on admission likely related to intravascular volume depletion due to vomiting no evidence of adrenal crisis Present on admission low cortisol level suspect due to adrenal insufficiency due to adrenal metastasis Nonoliguric acute kidney injury mostly prerenal in nature secondary to intravascular volume depletion related to poor oral intake and vomiting. Improving with IV hydration. Creatinine down to 1.23. Peaked at 1.7 this admission. HIDA scan obtained on September 13 no evidence of cystic or common bile duct obstruction to suggest acute cholecystitis essentially no gallbladder contraction ejection fraction calculated at 0% suggestive of hypokinesis or akinesis Plan Nephrology's recommendations hydrocortisone 50 mg IV every 12 hours will taper over the next few days Continue IV hydration Resume home meds as appropriate Scheduled for cholecystectomy day by surgical service Consult Dr. Pagan recommendations if antibiotics are indicated PT OT eval Possible subacute rehab home health care case manager pursuing the discharge plan DVT and GI prophylaxis The above dictated assessment and findings were discussed with Dr. Winston Impression and the plan of care have been dictated as directed. Renata Bowens nurse practitioner acting as a scribe for Dr. Winston
[2016-09-15 13:35] LABS: Glucose,Whole Blood 86 mg/dL (75-99)
[2016-09-15] MEDS ORDERED: HYDROCORTISONE SUCCINATE 100 MG/2 ML VIAL IV ONE (13:35)
[2016-09-15] MEDS ORDERED: HEPARIN SODIUM,PORCINE 5,000 UNIT/ML 1 ML VIAL SQ ONE (13:36)
[2016-09-15] MEDS: ONDANSETRON 4 MG/2 ML VIAL IVP PRN ×2 (13:38→15:17)
[2016-09-15] MEDS ORDERED: BUPIVACAIN-EPI 0.25%-1:200,000 30 ML VIAL SQ ONE ×2 (13:43→14:12)
[2016-09-15] MEDS ORDERED: MIDAZOLAM 2 MG/2 ML VIAL ONE (13:50)
[2016-09-15] MEDS ORDERED: PROPOFOL 10 MG/ML 20 ML VIAL IV ONE (13:50)
[2016-09-15] MEDS ORDERED: LIDOCAINE 1% INJ 10MG/ML (20 ML MDV) ONE (13:50)
[2016-09-15] MEDS ORDERED: GLYCOPYRROLATE 0.2 MG/ML 2 ML VIAL ONE (13:50)
[2016-09-15] MEDS ORDERED: LABETALOL 5 MG/ML VIAL MDV ONE (13:50)
[2016-09-15] MEDS ORDERED: ROCURONIUM BROMIDE 10 MG/ML 10 ML VIAL IV ONE (13:50)
[2016-09-15] MEDS ORDERED: ESMOLOL 100 MG/10 ML VIAL ONE (13:50)
[2016-09-15] MEDS ORDERED: fentaNYL (PF) 50 MCG/ML 2 ML AMP ONE (13:50)
[2016-09-15] MEDS ORDERED: NEOSTIGMINE 1 MG/ML 10 ML VIAL ONE (13:50)
[2016-09-15] MEDS ORDERED: SUCCINYLCHOLINE CHLORIDE VIAL 200 MG/10 ML VIAL IV ONE (13:50)
[2016-09-15] MEDS: SODIUM CHLORIDE 0.9% 100 ML with ceFAZolin 2,000 MG IV ONE ×4 (14:12→16:24)
[2016-09-15] MEDS ORDERED: LACTATED RINGERS 1,000 ML IV ONE (14:26)
--- NOTE | 2016-09-15 14:55 | P.PCN ---
Date of Procedure: 09/15/16 Procedure(s) Performed: PREOPERATIVE DIAGNOSIS: Chronic cholecystitis POSTOPERATIVE DIAGNOSIS: Same PROCEDURE: Laparoscopic cholecystectomy SURGEON: Jia EBL: Minimal see anesthesia record ANESTHESIA: Gen. COMPLICATIONS: None OPERATIVE PROCEDURE: The patient was brought and placed on the operating room table in the supine position. The patient was placed under general anesthesia at that time. The abdomen was prepped and draped in the usual sterile fashion. A small vertical infraumbilical incision was made. The fascia was grasped with the Azael forceps. The fascia was retracted anteriorly. The Veress needle was advanced into the peritoneal cavity. The saline drop test was normal. Insufflation took place up to 15 mmHg. A 5 mm optical trocar was advanced and the peritoneal cavity. 2 additional 5 mm trochars were placed in the right upper quadrant under direct visualization. A 10 mm trocar was advanced into the epigastric incision site. The gallbladder was significantly distended and the wall was somewhat edematous. The gallbladder was retracted superiorly and laterally. The peritoneum overlying the infundibulum was bluntly dissected. The patient's cystic duct was visualized. The patient's cystic duct was slightly dilated. I switched to a 12 mm trocar and a 12 mm clipper. This was able to traverse the width of the cystic duct nicely. The junction between the cystic duct common and hepatic duct was identified. The cystic duct was then divided after placement of 3 12 mm clips on the patient's side and one on the specimen side. The cystic artery was identified and clipped as well. A small vessel was seen along the gallbladder fossa and clipped as well. The gallbladder was then removed from the liver bed using electrocautery. The gallbladder was then removed from the epigastric trocar site with an Endo Catch bag. The gallbladder fossa was irrigated with saline. There was no evidence of any bleeding or biliary drainage seen. The trochars were then removed. The fascia at the 10 millimeter site was closed using a [id number] 0 Vicryl stitch. The skin at all 4 sites was closed using a 4- 0 Monocryl stitch. At the end of this procedure the sponge and needle counts were correct. DISPOSITION: Stable to the recovery room
[2016-09-15] MEDS: MORPHINE SULFATE 10 MG/ML SYRINGE IVP ONE ×5 (15:10→15:35)
[2016-09-15] MEDS ORDERED: HYDROmorphone 1 MG/ML 1 ML SYRINGE IM PRN (15:53)
[2016-09-15] MEDS: FAMOTIDINE 20 MG TAB PO SCH (21:20)
[2016-09-16] MEDS: SODIUM CHLORIDE 0.9% 1,000 ML IV SCH ×3 (04:16→22:38)
[2016-09-16] MEDS: HYDROCORTISONE SUCCINATE 100 MG/2 ML VIAL IV SCH ×2 (05:25→18:06)
[2016-09-16] MEDS: SODIUM FERRIC GLUCONAT-SUCROSE 125 MG in SODIUM CHLORIDE 0.9% 100 ML IVPB SCH (08:30)
[2016-09-16] MEDS: PIPERACILLIN-TAZOBACTAM 3.375 GM in DEXTROSE/WATER 1 50ML.BAG IVPB SCH ×3 (08:30→23:32)
[2016-09-16] MEDS: CLOTRIMAZOLE TROCHE 10 MG TROCHE MUCOUS MEM SCH ×3 (08:31→21:47)
[2016-09-16] MEDS: POLYETHYLENE GLYCOL 3350 17 GM POWD.PACK PO SCH (08:32)
[2016-09-16] MEDS: DOCUSATE 100 MG CAP PO SCH ×2 (08:32→20:03)
[2016-09-16] MEDS: SENNOSIDES 8.6 MG TAB PO SCH ×2 (08:32→20:03)
[2016-09-16 08:39] LABS: Anisocytosis Slight; Basophils % (A) 0 %; CH 28.6; CHCM 30.6; Eosinophils % (A) 0 %; HCT 31.4 % (39.0-53.0); HDW 3.24; HGB 9.7 gm/dL (13.0-17.5); Hypochromasia Marked; Luc # (Auto) 0.05; Luc % (Auto) 1; Lymphocytes # (A) 0.5 k/uL (1.0-4.8); Lymphocytes % (A) 6 %; MCH 28.7 pg (25.0-35.0); MCHC 30.8 g/dL (31.0-37.0); MCV 93.2 fL (80.0-100.0); Mean Platelet Volume 8.4; Monocytes # (A) 0.2 k/uL (0-1.0); Monocytes % (A) 3 %; Neutrophils # (A) 6.9 k/uL (1.3-7.7); Neutrophils % (A) 90 %; RBC 3.36 m/uL (4.30-5.90); RDW 16.2 % (11.5-15.5); WBC 7.6 k/uL (3.8-10.6); WBC (Perox) 8.45
[2016-09-16 08:57] LABS: ALT 20 U/L (21-72); AST 32 U/L (17-59); Alkaline Phosphatase 102 U/L (38-126); Anion Gap 15 mmol/L; Blood Urea Nitrogen 10 mg/dL (9-20); Calcium 9.5 mg/dL (8.4-10.2); Carbon Dioxide 25 mmol/L (22-30); Chloride 100 mmol/L (98-107); Glucose 132 mg/dL (74-99); Non-African American GFR(MDRD) >60 (>60 ml/min/1.73 sqM); Sodium 140 mmol/L (137-145); Total Bilirubin 0.5 mg/dL (0.2-1.3)
--- NOTE | 2016-09-16 10:12 | PN ---
DATE OF SERVICE: 09/15/2016 REASON FOR FOLLOWUP: Fever and possible cholecystitis. INTERVAL HISTORY: The patient is afebrile. The patient has been taken to the OR this afternoon and is status post laparoscopic cholecystectomy. Patient is seen in the postop period, recovering from his anesthesia. No further nausea or vomiting has been noticed or any significant diarrhea. Patient denies significant chest pain or cough. On examination, blood pressure is 126/74 with a pulse of 79, temperature 96.8. He is 98% on room air. General description is a middle-age male lying in bed in no distress. RESPIRATORY SYSTEM: Unlabored breathing. Clear to auscultation anteriorly. HEART: S1, S2. Regular rate and rhythm. ABDOMEN: Soft. No tenderness. LABS: Hemoglobin is 10.8, white count 6.6 with a BUN of 10 and creatinine 1.01. DIAGNOSTIC IMPRESSION AND PLAN: Patient with the fever and vomiting with question of possible cholecystitis, status post laparoscopic cholecystectomy. Patient will continue on Zosyn at this point. Continue supportive care.
--- NOTE | 2016-09-16 15:15 | P.PN ---
Progress Note - Text Patient is stable. He is day 1 post-laparoscopic cholecystectomy. He is awake alert. He is tolerating his diet well. Denies nausea or vomiting. Temperature is normal. Vitals are stable. Abdomen is soft with usual postoperative tenderness. Trocar sites look clean without infection or complication Impression stable post laparoscopic cholecystectomy. Recommendation doing well postop. Can be transferred to rehab the from a surgical standpoint at any time. Low-fat diet.
[2016-09-16] MEDS: FAMOTIDINE 20 MG TAB PO SCH (20:03)
[2016-09-17] MEDS: HYDROCORTISONE SUCCINATE 100 MG/2 ML VIAL IV SCH ×2 (06:13→17:32)
[2016-09-17] MEDS: SODIUM FERRIC GLUCONAT-SUCROSE 125 MG in SODIUM CHLORIDE 0.9% 100 ML IVPB SCH (08:08)
[2016-09-17] MEDS: SENNOSIDES 8.6 MG TAB PO SCH ×2 (08:09→20:10)
[2016-09-17] MEDS: CLOTRIMAZOLE TROCHE 10 MG TROCHE MUCOUS MEM SCH ×3 (08:09→21:00)
[2016-09-17] MEDS: PIPERACILLIN-TAZOBACTAM 3.375 GM in DEXTROSE/WATER 1 50ML.BAG IVPB SCH ×3 (08:09→23:18)
[2016-09-17] MEDS: DOCUSATE 100 MG CAP PO SCH ×2 (08:09→20:10)
[2016-09-17] MEDS: POLYETHYLENE GLYCOL 3350 17 GM POWD.PACK PO SCH (08:09)
--- NOTE | 2016-09-17 08:47 | PN ---
DATE OF SERVICE: 09/16/2016 Reason for follow-up: Fever and likely cholecystitis. INTERVAL HISTORY: The patient is afebrile. The patient overall pain to the abdominal area with nausea and vomiting has improved. The patient denies any chest pain or shortness of breath or cough and no diarrhea. On examination, blood pressure is 112/68 with a pulse of 79, temperature 97.1. He is 97% on room air. General description is a middle-age male lying in bed in no distress. RESPIRATORY SYSTEM: Unlabored breathing. Clear to auscultation anteriorly. HEART: S1, S2 regular rate and rhythm. ABDOMEN: Soft, no tenderness. LABS: Hemoglobin is 9.7, white count 7.6 with BUN of 10, creatinine 0.093. DIAGNOSTIC IMPRESSION AND PLAN: The patient admitted to the hospital with fever, nausea, vomiting, abdominal pain, likely cholecystitis status post cholecystectomy. Patient respond to Zosyn, switched to p.o. at the time of discharge. Continue supportive care.
--- NOTE | 2016-09-17 10:28 | P.PN ---
Progress Note - Text The patient is a stable 2 days post-laparoscopic cholecystectomy. Tolerated his diet. Had a bowel movement. No nausea or vomiting. Examination he is afebrile. Vitals are stable. Abdomen shows usual postoperative tenderness trocar sites are fine. Impression stable postop. Recommendation continued medical management of his other issues.
[2016-09-17] MEDS: SODIUM CHLORIDE 0.9% 1,000 ML IV SCH ×3 (12:36→20:12)
--- NOTE | 2016-09-17 14:18 | PN ---
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 Patient continues remains on IV antibiotics, status post gallbladder surgery removal. Patient is feeling better, up ambulating. No chest pain or shortness of breath. Vital signs appear to be stable. CARDIOVASCULAR: S1 and S2. LUNGS: Clear. GI: Soft. Incision clean, dry, intact. VASCULAR: Normal dorsalis pedis, posterior tibial and radial pulses. ASSESSMENT: 1. Acute adrenal insufficiency. 2. Acute nausea, vomiting, dehydration secondary to cholecystitis status post cholecystectomy. 3. Acute on chronic anemia, hemoglobin 9.7. Expect discharged to a rehab center tomorrow as he is clinically improved.
[2016-09-17] MEDS: FAMOTIDINE 20 MG TAB PO SCH (20:10)
[2016-09-18] MEDS: SODIUM CHLORIDE 0.9% 1,000 ML IV SCH (05:08)
[2016-09-18] MEDS: HYDROCORTISONE SUCCINATE 100 MG/2 ML VIAL IV SCH (06:38)
[2016-09-18] MEDS: SODIUM FERRIC GLUCONAT-SUCROSE 125 MG in SODIUM CHLORIDE 0.9% 100 ML IVPB SCH (08:48)
[2016-09-18] MEDS: POLYETHYLENE GLYCOL 3350 17 GM POWD.PACK PO SCH (08:48)
[2016-09-18] MEDS: SENNOSIDES 8.6 MG TAB PO SCH (08:49)
[2016-09-18] MEDS: DOCUSATE 100 MG CAP PO SCH (08:49)
[2016-09-18] MEDS: CLOTRIMAZOLE TROCHE 10 MG TROCHE MUCOUS MEM SCH (08:49)
[2016-09-18 09:18] VITALS: BP 113/65; PULSE 98; RESP 18; TEMP 96.5
--- NOTE | 2016-09-18 10:07 | P.PN ---
Subjective Patient is seen in follow-up for acute kidney injury and adrenal insufficiency. Patient has history of lung cancer with bilateral adrenal metastasis. He was maintained on Cortef 10 mg twice daily as an outpatient. This admission he presented with nausea and vomiting. He is maintained on IV fluids and renal function has been improving with creatinine down to 0.93 today. His cortisol level was noted to be less than 1. He was started on hydrocortisone 50 mg IV every 8 hours on September 14. His blood pressures have improved and are now in the systolic 120s. He underwent cholecystectomy this admission. Denies chest pain or shortness of breath. Admits to good urine output. Appetite is good. Vital signs are stable. General: The patient appeared well nourished and normally developed. HEENT: Head exam is unremarkable. Neck is without jugular venous distension. LUNGS: Lungs are clear to auscultation and percussion. Breath sounds decreased. HEART: Rate and Rhythm are regular. First and second heart sounds normal. No murmurs, rubs or gallops. ABDOMEN: Abdominal exam reveals normal bowel sounds. Non-tender and non- distended. No evidence of peritonitis. EXTREMITITES: No clubbing, cyanosis, or edema. Objective - Vital Signs Vital signs: Vital Signs Temp 96.5 F L 09/18/16 07:00 Pulse 98 09/18/16 07:00 Resp 18 09/18/16 07:00 BP 113/65 09/18/16 07:00 Pulse Ox 95 09/18/16 07:00 Intake & Output 09/17/16 09/18/16 09/18/16 18:59 06:59 18:59 Other: Voiding Method Toilet Toilet Toilet Urinal Urinal Urinal # Voids 3 1,600 # Bowel Movements 1 - Labs CBC & Chem 7: 09/16/16 08:19 09/16/16 08:17 Assessment and Plan Plan: Assessment: #1. Nonoliguric acute kidney injury mostly prerenal in nature secondary to intravascular volume depletion related to poor oral intake and vomiting. Improving with IV hydration. Creatinine down to 0.93. Peaked at 1.7 this admission. #2. Hypovolemic hyponatremia improved with IV fluids. #3. History of adrenal insufficiency secondary to adrenal metastasis. The hyponatremia as well as hypotension seem to be more related to intravascular volume depletion related to vomiting; however a component of adrenal insufficiency may be present as well due to his acute illness. #4. History of lung cancer. #5. Anemia. Iron deficiency present. Status post 3 doses of IV iron. #6. Gallbladder dyskinesia status post cholecystectomy. Plan: Decreased rate of IV fluids to 50 mL an hour. I will decrease dose of Cortef to 20 mg orally twice daily. Repeat electrolytes in the morning. Encourage oral intake.
[2016-09-18] MEDS: PIPERACILLIN-TAZOBACTAM 3.375 GM in DEXTROSE/WATER 1 50ML.BAG IVPB SCH (10:27)
--- NOTE | 2016-09-18 12:37 | P.DS ---
Providers Date of admission: 09/11/16 15:20 Expected date of discharge: 09/18/16 Attending physician: Abhi Wilson Consults: 09/12/16 07:52 Consult Physician Urgent Consulting Provider: Albert Ro Consult Reason/Comments: abd pain Do you want consulting provider notified?: Yes 09/12/16 13:39 Consult Physician Stat Consulting Provider: Curt Pagan Consult Reason/Comments: Present on admission febrile questionable need antibiotic Do you want consulting provider notified?: Yes 09/14/16 11:02 Consult Physician Stat Consulting Provider: Bong Burrell Consult Reason/Comments: low cortisol Do you want consulting provider notified?: Yes Primary care physician: [facility] [place] Course: 61-year-old who presented on the day of admission to the emergency room with a chief complaint of not feeling well with decreased oral intake nausea vomiting increased fatigue inability to participate in ADLs. Patient was seen in the emergency room started on IV antibiotics mid to the services of the attending with IV hydration initiated Patient was seen by hematology oncology this admission pleasant male pt of Dr. Johnson who was seen in consult at [facility] when he presented with chest pain, back pain and 40lb weight loss in 3-4 months. He was found to have a very large RUL mass, 7.4 x 7.0 x 7.0, with RML and AUGUSTO lesions, bilateral adrenal mets were suspected. 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 Staging MRI of the brain did revel 1-2 small lesions, pt was completely asymptomatic, plan was to treat systemically and do WBRT after chemo, he was started on carboplatin and etoposide. In May treatment follow up CT chest showed significant improvement, head MRI, stable. In Jun 2016 pt presented with R hip pain, MRI was negative for bone mets, pt used pain meds with decent pain control. He completed 6 cycles of chemo early Jul, he was seen in follow up, CT chest showed stable disease, he was then referred for WBRT, which he completed 1-2 weeks ago. 4-5 days ago he began experiencing right hip pain, radiating down the leg, sharp, difficult to walk or sit, pain meds were no longer helping, the he starting vomiting so his oral intake diminished to near nothing, he was not able to get his symptoms under control so he came to hospital. He had a fever on admit, he denied any known fevers prior to admit. He does feel a little better since admission. Mild oral irritation, no sore throat, mild nauase but no vomiting today, no SOB, cough, his abd is sore from throwing up, he denies black ,bloody or coffee ground emesis, no hematuria, dysuria, diarrhea, he can have trouble with constipation at times, he denies numbness or tingling in the right leg, no swelling. Additionally patient was seen by Dr. Ro surgical service for the abdominal pain. CAT scan of the abdomen pelvis showed a slightly distended gallbladder inflammatory changes noted patient was having pain in the right side of his abdomen. Was having emesis that were nonbloody. Has been experiencing chronic constipation no stool for several days. CAT scan did suggest possible thickening of the cecum and ascending and transverse colon. Patient did have a HIDA scan as part of the workup it showed an ejection fraction calculated at 0% suggestive of hypokinesis or akinesis of the gallbladder surgery recommended proceeding with a lap cholecystectomy in which the patient elected to proceed with this was done on September 15 no were no postop events Additionally the patient was seen by Dr. Shaikh nephrology for the adrenal insufficiency. Patient does have a history of lung cancer with bilateral adrenal metastasis. He had been maintained on Cortef 10 mg twice a day in the outpatient setting. This admission he did present with a nausea vomiting had been maintained on IV fluid in the renal function was improving and the creatinine was coming down his cortisone level was noted to be less than 1 patient was started on IV hydrocortisone 50 mg every 8 hours on September 14 it was tapered according to nephrology's recommendations Over the course of the hospitalization physical and occupational therapy participate in the plan of care patient had made significant improvement did not qualify for subacute rehab. The employment case manager was setting up for home care. He should stated that he felt significantly improved was able to tolerate a diet there were no further episodes of nausea vomiting From all consulting physicians patient was felt to be hemodynamically stable and appropriate proceed with a discharge to home Impression Present on admission nausea abdominal pain suspect acute viral syndrome Percent admission oral intake nausea vomiting clinical dehydration suspect due to acute gastroenteritis History of cancer with positive tissue biopsies March 2016 right lung mass cancer Ultrasound of the gallbladder shows no significant sludge in the gallbladder Present on admission mild hyponatremia and hyperkalemia suspect due to clinical dehydration poor oral intake Present on admission acute renal failure suspect due to poor oral intake clinical dehydration Low cortisol level present on admission likely due to adrenal metastasis with adrenal insufficiency Present on admission nausea vomiting inability to take oral meds missed numerous doses of Cortef resulting in low cortisol level 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 Anemia aplastic aregenerative chronic no acute intervention hemoglobin dropped since admission likely due to hemoconcentration Present on admission acute Fever pancultures negative infectious disease following Former smoker greater than 4 packs a day quit February 2016 greater than a 40 year history with probable COPD not diagnosed History of chronic alcoholism quit January 2016 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 not sure of the etiology Right hip pain with complete right hip x-ray and femur showing no fracture no dislocation negative imaging Anemia iron deficiency status post 3 doses of IV iron History of adrenal insufficiency secondary to adrenal metastasis Hypovolemic, hyponatremia present on admission likely related to intravascular volume depletion due to vomiting no evidence of adrenal crisis Present on admission low cortisol level suspect due to adrenal insufficiency due to adrenal metastasis Nonoliguric acute kidney injury mostly prerenal in nature secondary to intravascular volume depletion related to poor oral intake and vomiting. Improving with IV hydration. Creatinine down to 1.23. Peaked at 1.7 this admission. HIDA scan obtained on September 13 no evidence of cystic or common bile duct obstruction to suggest acute cholecystitis essentially no gallbladder contraction ejection fraction calculated at 0% suggestive of hypokinesis or akinesis Postop laparoscopic cholecystectomy for chronic cholecystitis done on September 15 History of adrenal insufficiency secondary to adrenal metastasis. Chronic physical debility suspect due to chronic illness The above dictated assessment and findings were discussed with dr wilson . Impression and the plan of care have been dictated as directed. Renata Bowens nurse practitioner acting as a scribe for dr wilson Plan - Discharge Summary New Discharge Prescriptions: Amoxic-Pot Clav 875-125Mg [Augmentin 875-125] 1 tab PO Q12HR #14 tablet HYDROcodone/APAP 7.5-325MG [[place] 7.5-325] 1 each PO Q4H PRN #30 tab PRN Reason: Pain Hydrocortisone [Cortef] 20 mg PO Q12H #60 tab Polyethylene Glycol 3350 [Miralax] 17 gm PO DAILY #30 powd.pack Discharge Medication List Acetaminophen Tab [Tylenol] 650 mg PO Q6HR PRN #0 tab 09/18/16 [Rx] Amoxic-Pot Clav 875-125Mg [Augmentin 875-125] 1 tab PO Q12HR #14 tablet [Rx] Docusate [Colace] 100 mg PO BID cap 09/18/16 [Rx] Famotidine [Pepcid] 40 mg PO HS tab 09/18/16 [Rx] HYDROcodone/APAP 7.5-325MG [[place] 7.5-325] 1 each PO Q4H PRN #30 tab 09/18/16 [ Rx] Hydrocortisone [Cortef] 20 mg PO Q12H #60 tab 09/18/16 [Rx] Polyethylene Glycol 3350 [Miralax] 17 gm PO DAILY #30 powd.pack 09/18/16 [Rx] Sennosides [Senokot] 8.6 mg PO BID tab 09/18/16 [Rx] Follow up Appointment(s)/Referral(s): Abhi Wilson MD [Primary Care Provider] - 1-2 days Inder Johnson MD [STAFF PHYSICIAN] - 10/12/16 8:15 am Albert Ro MD [Medical Doctor] - 1 Week Bong Burrell DO [STAFF PHYSICIAN] - 1 Week Discharge Disposition: HOME WITH HOME HEALTH SERVICES
--- NOTE | 2016-09-18 17:14 | PN ---
DATE OF SERVICE: 09/18/2016 REASON FOR FOLLOWUP: Fever and acute cholecystitis. INTERVAL HISTORY: The patient is afebrile. His abdominal pain is currently controlled. The patient denies having any chest pain, shortness of breath or cough. No nausea, vomiting or any diarrhea. On examination, blood pressure is 113/65 with a pulse of 98, temperature 96.5. He is 95% on 3 L nasal cannula. General description is a middle-aged male lying in bed in no distress. RESPIRATORY SYSTEM: Unlabored breathing. Clear to auscultation anteriorly. HEART: S1, S2. Regular rate and rhythm. ABDOMEN: Soft. No tenderness. LABS: Hemoglobin is 9.7 with a white count of 7.6; BUN of 10, creatinine 0.93. DIAGNOSTIC IMPRESSION AND PLAN: Patient with a fever. Source is likely cholecystitis, status post cholecystectomy. Plan at this time is to switch him over to Augmentin 875 b.i.d. for another 7 days with close outpatient followup. Continue supportive care.
[2016-09-18] MEDS ORDERED: HYDROCORTISONE 20 MG TAB PO SCH (18:00)
== END 2016-09-18 15:43 | disposition home health service (06) | DRG 357 ==
LOC: EC 09:48 → 4MS4W 15:20
PROVIDERS: ADMIT Family Medicine; ATTEND Family Medicine
PROC: 0FT44ZZ Resection of Gallbladder, Percutaneous Endoscopic Approach (ICD-10-PCS; principal; 2016-09-15 12:15)
DX: A08.4 Viral intestinal infection, unspecified (principal); N17.9 Acute kidney failure, unspecified; D61.09 Other constitutional aplastic anemia; C79.71 Secondary malignant neoplasm of right adrenal gland; C79.31 Secondary malignant neoplasm of brain; I95.89 Other hypotension; C79.72 Secondary malignant neoplasm of left adrenal gland; E27.1 Primary adrenocortical insufficiency; E87.1 Hypo-osmolality and hyponatremia; K81.1 Chronic cholecystitis; E87.5 Hyperkalemia; D50.9 Iron deficiency anemia, unspecified; F10.21 Alcohol dependence, in remission; E86.0 Dehydration; H54.41 Blindness, right eye, normal vision left eye; J44.9 Chronic obstructive pulmonary disease, unspecified; K59.09 Other constipation; E86.1 Hypovolemia; G89.29 Other chronic pain; M19.91 Primary osteoarthritis, unspecified site; Z87.891 Personal history of nicotine dependence; Z92.3 Personal history of irradiation; Z92.21 Personal history of antineoplastic chemotherapy; Z85.118 Personal history of other malignant neoplasm of bronchus and lung; Z79.899 Other long term (current) drug therapy
CPT/HCPCS: 36415; 71020; 73502; 74177; 76705; 78226; 80053; 81001; 82150; 82533; 82550; 82553; 82728; 83540; 83550; 83605; 83690; 84484; 85025; 85610; 85730; 87040; 87086; 87502; 88304; 93005; 96361; 96365; 96375; 99285

== ENCOUNTER → 2016-10-26 | Outpatient (CLI) | payer OTHER ==
--- NOTE | 2016-10-27 07:37 | CT ---
EXAMINATION TYPE: CT chest w con DATE OF EXAM: 10/26/2016 6:13 PM COMPARISON: NONE HISTORY: Patient complains of back pain. Follow up study for known lung CA. CT DLP: 243.9 mGycm. Automated Exposure Control for Dose Reduction was Utilized. TECHNIQUE: CT scan of the thorax is performed following with IV Contrast, patient injected with 100 mL of Omnipaque 300. FINDINGS: The right upper lobe dominant mass has markedly increased in size and progressed in degree of central necrosis now measuring at least 8.9 x 11.5 x 10.9 cm and previously measuring 5.3 x 5.3 x 4.5 cm on the exam of 08/11/2016. There is abrupt cut off of the segmental bronchi to the right upper lobe. Lizzeth pherally there is atelectasis. The larger index mass now abuts the right middle lobe mass which again is spiculated. This has increased in density but overall stable size of the right middle lobe lesion now measuring 2.0 x 1.4 x 1.5 cm and previously measured 2.4 x 1.5 x 2.0 cm. Again the spiculated li ngular lesion is stable measuring approximately 1.0 cm. No new pulmonary nodules or masses are seen. No focal consolidation, pleural effusion, or pneumothora x is noted. There is bilateral nodular gynecomastia radiating from the retroareolar regions. Few righ t hilar lymph nodes are mildly enlarged measuring 1.0 cm in short axis. Three-vessel coronary artery calcifications are noted. Cholecystectomy clips are seen within the gallbladder fossa. Few parenchymal calcifications are seen within the spleen from benign granulomatous disease. Left adrenal and right adrenal gland nodules are unchanged from the prior exam and are soft tissue density, possibly representing metastasis. Adrenal gland nodule on the right measures up to 2 cm adrenal gland nodule on the left measures up to 2.2 cm . No suspicious osseous lesions are seen. IMPRESSION: 1. Progression of disease within the right upper lobe with marked enlargement of the centrally necrot ic right upper lobe mass now measuring up to 11.5 cm and previously measuring up to 5.3 cm on the exa m of 08/11/2016. There is associated postobstructive and adjacent surrounding atelectasis. 2. Overall stable spiculated right middle lobe and lingular pulmonary nodules, right hilar lymph node , and adrenal lesions that are all suspicious for metastatic disease. 3. Cholecystectomy and benign splenic granulomatous changes.
== END | disposition home or self-care (01) ==
LOC: RADCTMAIN 17:12
PROVIDERS: ATTEND Internal Medicine Hematology & Oncology
DX: C34.90 Malignant neoplasm of unspecified part of unspecified bronchus or lung (principal)
CPT/HCPCS: 71260; Q9967; 72131

== ENCOUNTER → 2016-10-26 | Outpatient (CLI) | payer OTHER ==
--- NOTE | 2016-10-27 07:46 | CT ---
EXAMINATION TYPE: CT lumbar spine wo con DATE OF EXAM: 10/26/2016 6:09 PM COMPARISON: NONE HISTORY: Patient complains of chronic low back pain, worse last two months. CT DLP: 515.6 mGycm Automated exposure control for dose reduction was used. TECHNIQUE: Unenhanced CT of the lumbar spine was performed. Bone and soft tissue window settings are submitted as well as coronal and sagittal reconstructions. FINDINGS: The lumbar alignment maintains normal alignment. Vertebral body heights are also maintained . Degenerative endplate sclerosis, anterior osteophytes, and facet arthropathy are seen of the visual ized thoracolumbar spine. No suspicious sclerotic or lytic lesions are appreciated. Atheromatous morgan ges are seen of the abdominal aorta. L1-L2: Decreased disc space height. There is a broad-based disc bulge with no focality that results i n mild bilateral neural foraminal narrowing. No disc herniation protrusion or central stenosis. No f acet joint arthropathy. L2-L3: Normal disc space height. There is a broad-based disc bulge with no focality that results in m ild bilateral neural foraminal narrowing. No disc herniation protrusion or central stenosis. No face t joint arthropathy. L3-L4: There is a broad-based disc bulge and ligament of flavum buckling with facet arthropathy that contributes to mild spinal canal stenosis and mild bilateral neural foraminal narrowing. No focal dis c herniation is evident. L4-L5: There is a left eccentric disc bulge creating moderate left neural foraminal narrowing in conj unction with ligament flavum buckling and facet arthropathy. Mild right neural foraminal narrowing is also seen as a result of right facet arthropathy and the disc bulge. There is also mild resultant sp inal canal stenosis. L5-S1: There is a broad-based disc bulge without focal cavity creating mild bilateral neural foramina l stenosis without spinal canal stenosis. Facet arthropathy and mild ligamentum flavum buckling are e vident. IMPRESSION: 1. No discrete evidence for disc herniation. 2. Mild spinal canal stenosis is present at L3-L5 from degenerative disc disease, ligamentum flavum b uckling, and facet arthropathy. 3. Multilevel degenerative disc disease and osteoarthritic changes with multilevel neural foraminal n arrowing 4. No evidence of suspicious osseous sclerotic or lytic lesion.
== END | disposition home or self-care (01) ==
LOC: RADCTMAIN 17:09
PROVIDERS: ATTEND Family Medicine
DX: M48.06 Spinal stenosis, lumbar region (principal); M51.16 Intervertebral disc disorders with radiculopathy, lumbar region; M99.73 Connective tissue and disc stenosis of intervertebral foramina of lumbar region; M24.28 Disorder of ligament, vertebrae
CPT/HCPCS: 72131

== ENCOUNTER 2016-11-21 09:08 | Inpatient (IN) | payer OTHER ==
[2016-11-21] MEDS ORDERED: cefTRIAXone 2,000 MG in SODIUM CHLORIDE 0.9% 100 ML IVPB STA (09:34)
[2016-11-21] MEDS ORDERED: ONDANSETRON 4 MG/2 ML VIAL IVP STA (09:34)
[2016-11-21] MEDS ORDERED: HYDROmorphone 1 MG/ML 1 ML SYRINGE IVP STA (09:34)
[2016-11-21] MEDS ORDERED: SODIUM CHLORIDE 0.9% 1,000 ML IV STA (09:34)
[2016-11-21] MEDS ORDERED: AZITHROMYCIN 500 MG in SODIUM CHLORIDE 0.9% 250 ML IVPB STA (09:36)
[2016-11-21] MEDS: SODIUM CHLORIDE 0.9% 1,000 ML IV STA ×2 (09:48→14:43)
--- NOTE | 2016-11-21 10:04 | ED ---
Weakness HPI - General Chief complaint: Weakness Stated complaint: Weakness Time Seen by Provider: 11/21/16 09:25 Source: patient, family Mode of arrival: wheelchair Limitations: no limitations - History of Present Illness Initial comments: Centered with a fever and chills been coughing had a chemo on Sunday and has since then he has not been eating not drinking he is hardly able to walk difficulty swallowing unable to ambulate call also was office this morning and he recommended that he comes to the ER same advised to call from Dr. Bedoya 's office as well he have a history of lung cancer has lost a lot of weight and not currently on any chemo according to family he has a headache denies any neck stiffness, no appetite been coughing denies any chest pain no abdominal pain complaints but generalized weakness - Related Data Home Medications Medication Instructions Recorded Confirmed Acetaminophen Tab [Tylenol Tab] 1,000 mg PO Q6HR PRN 11/21/16 11/21/16 Aloxi 25 mcg IV DIRECTED 11/21/16 11/21/16 Docusate [Colace] 100 mg PO BID PRN 11/21/16 11/21/16 Famotidine [Pepcid] 20 mg PO DAILY 11/21/16 11/21/16 Hydrocortisone [Cortef] 10 mg PO DAILY@1400 11/21/16 11/21/16 Hydrocortisone [Cortef] 20 mg PO DAILY 11/21/16 11/21/16 Prochlorperazine [Compazine] 10 mg PO Q6H PRN 11/21/16 11/21/16 Topotecan HCl [Hycamtin] 4 mg IV Q7D 11/21/16 11/21/16 Allergies Allergy/AdvReac Type Severity Reaction Status Date / Time No Known Allergies Allergy Verified 11/21/16 09:46 Review of Systems ROS Statement: Those systems with pertinent positive or pertinent negative responses have been documented in the HPI. ROS Other: All systems not noted in ROS Statement are negative. Past Medical History Past Medical History: Cancer, COPD, Osteoarthritis (OA) Additional Past Medical History / Comment(s): DX LUNG CANCER - NO SX BUT HAS HAD CHEMO AND RADIATION(COMPLETED 10 TX) ,"ADDISONS DISEASE", RT EYE BLIND SINCE CHILDHOOD NOT SURE OF CAUSE, COPD MENTIONED PER PAST MED HX BUT PT DID'NT HAVE KNOWLEGE OF THIS. History of Any Multi-Drug Resistant Organisms: None Reported Past Surgical History: No Surgical Hx Reported Additional Past Surgical History / Comment(s): BRONCHOSOCPY Past Anesthesia/Blood Transfusion Reactions: No Reported Reaction Past Psychological History: No Psychological Hx Reported Additional Psychological History / Comment(s): PT IS INDEPENDANT, LIVES WITH HIS SISTER.ONE [employer], NO OUTSIDE SERVICES Smoking Status: Former smoker Past Alcohol Use History: Heavy Additional Past Alcohol Use History / Comment(s): STARTED SMOKING AT AGE 12 WORKED HIS WAY UP TO 4 PPD, QUIT , PAST HEAVY USE OF ALCOHOL, QUIT Past Drug Use History: None Reported - Past Family History Mother Family Medical History: Cancer Additional Family Medical History / Comment(s): BREAST CANCER Father Family Medical History: Myocardial Infarction ([place]) General Exam - General Exam Comments Initial Comments: General: The patient is awake no obvious distress but he looks pale and weak and dehydrated Skin: Skin is warm and dry and no rashes or lesions are noted. Eye: Pupils are equal, round and reactive to light, extra-ocular movements are intact; there is normal conjunctiva bilaterally. Ears, nose, mouth and throat: Membranes are dry and his lips are cracked Neck: The neck is supple, there is no tenderness him a no signs of meningitis he is able to move his neck from side to side Cardiovascular: There is a regular rate and rhythm. It is some tachycardia Respiratory: To auscultation bilateral, crease breath sounds crackles at the bases Gastrointestinal: Soft, non-distended, non-tender abdomen without masses or organomegaly noted. There is no rebound or guarding present. Bowel sounds are unremarkable. Back: There is no tenderness to palpation in the midline. There is no obvious deformity. Musculoskeletal: Normal ROM, no tenderness, There is no pedal edema. There is no calf tenderness or swelling. No cords were appreciated. Neurological: CN II-XII intact, Cranial nerves III through XII are intact. There are no obvious motor or sensory deficits. Coordination appears grossly intact. Speech is normal. Psychiatric: Cooperative, seems depressed Limitations: no limitations Course Vital Signs 11/21/16 11/21/16 11/21/16 09:10 09:43 10:40 Temperature 101.2 F H Pulse Rate 124 H 108 H Respiratory 20 18 18 Rate Blood Pressure 93/57 114/73 O2 Sat by Pulse 97 100 Oximetry 11/21/16 10:43 Temperature 99.2 F Pulse Rate Respiratory Rate Blood Pressure O2 Sat by Pulse Oximetry EKG Findings - EKG Comments: EKG Findings:: Sinus tachycardia heart rate is 119 PA interval is 136 QRS duration is 74 QT/QTc is 300/422 view of this EKG does not reveal any ST elevation or ST depression Medical Decision Making - Lab Data Result diagrams: 11/21/16 10:08 Lab Results 11/21/16 11/21/16 11/21/16 Range/Units 10:08 10:08 10:08 WBC 11.5 H (3.8-10.6) k/uL RBC 4.02 L (4.30-5.90) m/uL Hgb 10.6 L (13.0-17.5) gm/dL Hct 35.3 L (39.0-53.0) % MCV 87.7 D (80.0-100.0) fL MCH 26.4 (25.0-35.0) pg MCHC 30.1 L (31.0-37.0) g/dL RDW 17.5 H (11.5-15.5) % Plt Count 215 (150-450) k/uL Neutrophils % 82 % Lymphocytes % 14 % Monocytes % 2 % Eosinophils % 1 % Basophils % 0 % Neutrophils # 9.4 H (1.3-7.7) k/uL Lymphocytes # 1.6 (1.0-4.8) k/uL Monocytes # 0.2 (0-1.0) k/uL Eosinophils # 0.1 (0-0.7) k/uL Basophils # 0.0 (0-0.2) k/uL Hypochromasia Marked Anisocytosis Slight PT 11.6 (9.0-12.0) sec INR 1.2 (<1.1) APTT 24.0 (22.0-30.0) sec Plasma Lactic Acid Moshe 1.4 (0.7-2.0) mmol/L Total Creatine Kinase (55-170) U/L CK-MB (CK-2) (0.0-2.4) ng/mL CK-MB (CK-2) Rel Index Troponin I (0.000-0.034) ng/mL 11/21/16 Range/Units 10:08 WBC (3.8-10.6) k/uL RBC (4.30-5.90) m/uL Hgb (13.0-17.5) gm/dL Hct (39.0-53.0) % MCV (80.0-100.0) fL MCH (25.0-35.0) pg MCHC (31.0-37.0) g/dL RDW (11.5-15.5) % Plt Count (150-450) k/uL Neutrophils % % Lymphocytes % % Monocytes % % Eosinophils % % Basophils % % Neutrophils # (1.3-7.7) k/uL Lymphocytes # (1.0-4.8) k/uL Monocytes # (0-1.0) k/uL Eosinophils # (0-0.7) k/uL Basophils # (0-0.2) k/uL Hypochromasia Anisocytosis PT (9.0-12.0) sec INR (<1.1) APTT (22.0-30.0) sec Plasma Lactic Acid Moshe (0.7-2.0) mmol/L Total Creatine Kinase 342 H (55-170) U/L CK-MB (CK-2) 5.1 H* (0.0-2.4) ng/mL CK-MB (CK-2) Rel Index 1.5 Troponin I 0.046 H* (0.000-0.034) ng/mL Critical Care Time Total Critical Care Time: 30 Critical Care Time: February the fever and tachycardia, is quite remained compromised from his chemo was last Sunday considering there is fluid resuscitation and appropriate IV antibiotics for now and also noticed that his troponin is elevated also chest x-ray revealed that his lung mass has increased compared to his previous size he would need admission under Dr. Abhi Olson service and cardiology be on board considering his elevated troponin I'm not going to heparinize him considering increased size of tumor unless approved by cardiology to avoid the risk of bleed Disposition Clinical Impression: Fever, Tachycardia, History of lung cancer, Elevated troponin Disposition: ADMITTED IP TO THIS HOSP Condition: Fair Referrals: Abhi Winston MD [Primary Care Provider] - 1-2 days
[2016-11-21 10:38] LABS: Anisocytosis Slight; Basophils % (A) 0 %; CH 26.1; CHCM 29.7; Eosinophils # (A) 0.1 k/uL (0-0.7); Eosinophils % (A) 1 %; HCT 35.3 % (39.0-53.0); HDW 2.56; HGB 10.6 gm/dL (13.0-17.5); Hypochromasia Marked; Luc # (Auto) 0.13; Luc % (Auto) 1; Lymphocytes # (A) 1.6 k/uL (1.0-4.8); Lymphocytes % (A) 14 %; MCH 26.4 pg (25.0-35.0); MCHC 30.1 g/dL (31.0-37.0); Mean Platelet Volume 6.5; Monocytes # (A) 0.2 k/uL (0-1.0); Monocytes % (A) 2 %; Neutrophils # (A) 9.4 k/uL (1.3-7.7); Neutrophils % (A) 82 %; RBC 4.02 m/uL (4.30-5.90); RDW 17.5 % (11.5-15.5); WBC 11.5 k/uL (3.8-10.6); WBC (Perox) 11.97
[2016-11-21 10:41] LABS: INR 1.2 (<1.1); Prothrombin Time 11.6 sec (9.0-12.0)
[2016-11-21 10:50] LABS: MCV 87.7 fL (80.0-100.0)
--- NOTE | 2016-11-21 10:52 | XR ---
EXAMINATION TYPE: XR chest 2V DATE OF EXAM: 11/21/2016 10:36 AM COMPARISON: 09/11/2016 INDICATION: Weakness TECHNIQUE: Frontal and lateral views of the chest are obtained. FINDINGS: The heart size is normal. The pulmonary vasculature is normal. There is a very large mass within the right suprahilar right lung measuring approximately 15 x 12 cm in size. This is significantly increased in size over the interval. By history the patient has a hist ory of small cell lung cancer. No suspicious lytic or sclerotic areas are identified. IMPRESSION: 1. Marked increased size of the right lung mass compatible with neoplasm. 2. Remaining portions of the lungs are clear.
[2016-11-21 11:10] LABS: Creatine Kinase MB 5.1 ng/mL (0.0-2.4); Troponin I 0.046 ng/mL (0.000-0.034)
[2016-11-21 11:13] LABS: Calcium 9.1 mg/dL (8.4-10.2); Total Bilirubin 1.6 mg/dL (0.2-1.3); Total Protein 6.6 g/dL (6.3-8.2)
[2016-11-21] MEDS ORDERED: NALOXONE 0.4 MG/ML 1 ML VIAL IV PRN (11:20)
[2016-11-21] MEDS ORDERED: ONDANSETRON 4 MG/2 ML VIAL IVP PRN (11:26)
[2016-11-21] MEDS ORDERED: PROCHLORPERAZINE 10 MG TAB PO PRN (11:35)
[2016-11-21] MEDS ORDERED: DOCUSATE 100 MG CAP PO PRN (11:35)
[2016-11-21] MEDS ORDERED: ASPIRIN 81 MG CHEW PO STA (11:36)
[2016-11-21] MEDS ORDERED: ENOXAPARIN 60 MG/0.6 ML SYRINGE SQ STA (11:37)
[2016-11-21] MEDS ORDERED: [UNRECOGNIZED DRUG - OTHER] IV SCH (11:45)
[2016-11-21] MEDS ORDERED: [UNRECOGNIZED DRUG - OTHER] IV SCH (11:45)
[2016-11-21 12:44] LABS: Amorphous Sediment,Urine Occasional /hpf; Appearance,Urine Cloudy (Clear); Bacteria,Urine Rare /hpf; Bilirubin,Urine Negative (Negative); Glucose,Urine (UA) Negative (Negative); Ketones,Urine Negative (Negative); Leukocyte Esterase,Urine Negative (Negative); Mucus,Urine Rare /hpf; Nitrite,Urine Negative (Negative); PH, Urine 5.5 (5.0-8.0); Particle Count 4720; Protein,Urine Trace (Negative); RBC,Urine 2 /hpf (0-5); Specific Gravity,Urine 1.015 (1.001-1.035); UA Billing (MACRO vs. MICRO) MICRO
--- NOTE | 2016-11-21 13:21 | CONS ---
DATE OF CONSULTATION: CHIEF COMPLAINT: Not feeling well, tiredness, and fatigue. REASON FOR CONSULTATION: Elevated troponin. This is a 61-year-old gentleman with history of lung cancer on chemotherapy who presented to hospital with difficulty in swallowing and unable to ambulate. He has lost significant amounts of weight. In the ER, he had a troponin done that is slightly elevated due to which Cardiology had been consulted. He denies chest pain. There is no history of paroxysmal nocturnal dyspnea or orthopnea. Patient seems to be in significant pain from his lung cancer. Past medical history is significant for CA lung. Medications at home include Pepcid, Cortef, Compazine. ALLERGIES: No known drug allergies. Family history is negative for premature coronary artery disease. Social history is negative for current smoking, EtOH abuse or drug abuse. He quit smoking in February of 2016 and alcohol at around the same time. Review of systems is significant for musculoskeletal pain. The rest of the system review is not relevant. On exam, T-max is 99.8. Heart rate is 99, blood pressure is 101/79, respiratory rate is 18. Chest exam reveals diminished air entry at the bases. Heart exam reveals first and second heart sounds. No gallop. Abdomen is soft. Exam of extremities did not reveal any edema. Peripheral pulses are felt. Chest x-ray shows large right lung mass. Labs show that the hemoglobin is 10.6. Creatinine is 1.5. Troponin is elevated at 0.046. EKG shows sinus tachycardia with left axis deviation. ASSESSMENT: 1. Mild troponin elevation of unclear clinical significance. 2. Large lung mass. PLAN: I am going to obtain a 2-D echo to evaluate the LV function. His prognosis is guarded. We will obtain another set of troponin. Will decide on further course of action based on how he progresses and what happens to his cardiac enzymes.
[2016-11-21] MEDS: HYDROmorphone 1 MG/ML 1 ML SYRINGE IV PRN ×4 (13:32→23:59)
[2016-11-21] MEDS: HYDROCORTISONE 10 MG TAB PO SCH (17:07)
[2016-11-21] MEDS: SODIUM CHLORIDE 0.9% 1,000 ML IV SCH ×2 (17:08→23:59)
--- NOTE | 2016-11-21 19:58 | HP ---
DATE OF ADMISSION: CHIEF COMPLAINT: [id number]-old white male with lung cancer has been on chemotherapy. Difficulty swallowing and unable to ambulate. Significant weight loss. He had elevated troponin and he was admitted to the hospital with probable pneumonia, worsening of his right-sided lung mass 12 x 15 cm on chest x-ray in the ER. He had elevated white count. Has been having some low-grade fevers. He was admitted for probable pneumonia and lung cancer hypoxemia, probable sepsis and elevated troponins. Cardiology is consulted, also. Medications include: 1. Cortef for adrenal insufficiency. 2. Compazine for nausea. 3. Prilosec for GERD. ALLERGIES: NO KNOWN DRUG ALLERGIES. FAMILY HISTORY: Negative. SOCIAL HISTORY: Quit smoking in February 2016. Chronic alcoholism ( ) severe at that time for many years. Fourteen-point review of systems negative except as mentioned in HPI. Blood pressure is 70s over 50s at this time. Heart rate is in 90s. T-max 99. Respiratory rate 18 to 20. Lungs show decreased breath sounds on the right side with scattered rhonchi and wheeze. HEART: S1, S2. GI: Soft, nontender. HEMATOLOGIC: Negative Homans. PSYCHIATRIC: Fair mood and affect. Chest x-ray shows large right lung mass. Creatinine 1.5. Hemoglobin 10.6. Troponin elevated. ASSESSMENT: 1. Lung cancer, worsening right side of the lung with increased lesion of 12 x 15 cm. 2. Pneumonia. 3. Sepsis secondary to pneumonia, right lung. Cardiology and pulmonary consults. IV Rocephin and Zithromax given. Oncology is being ordered. Fluid boluses for hypotension. Please see further orders. Prognosis is very poor.
[2016-11-22] MEDS: SODIUM CHLORIDE 0.9% 1,000 ML IV SCH ×3 (03:06→19:40)
[2016-11-22] MEDS: HYDROmorphone 1 MG/ML 1 ML SYRINGE IV PRN ×3 (03:06→09:20)
[2016-11-22] MEDS: FAMOTIDINE 20 MG TAB PO SCH (07:40)
[2016-11-22] MEDS: HYDROCORTISONE 20 MG TAB PO SCH (07:40)
[2016-11-22] MEDS: HYDROcodone/APAP 10-325MG 1 EACH TAB PO PRN ×3 (10:05→20:54)
--- NOTE | 2016-11-22 10:17 | ECHOF ---
Referral Reason:troponin MEASUREMENTS -------- HEIGHT: 182.9 cm WEIGHT: 68.0 kg BP: 101/79 IVSd: 1.0 cm (0.6 - 1.1) LVIDd: 4.0 cm (3.9 - 5.3) LVPWd: 1.0 cm (0.6 - 1.1) IVSs: 1.2 cm LVIDs: 2.3 cm LVPWs: 1.1 cm LAESV Index (A-L): 11.53 ml/m Ao Diam: 4.1 cm (2.0 - 3.7) AV Cusp: 1.5 cm (1.5 - 2.6) LA Diam: 2.3 cm (2.7 - 3.8) MV E Ananda: 0.65 m/s MV DecT: 338 ms MV A Ananda: 0.77 m/s MV E/A Ratio: 0.85 RAP: 5.00 mmHg RVSP: 12.60 mmHg FINDINGS -------- Sinus rhythm. This was a technically adequate study. LV size, wall thickness and systolic function are normal, with an EF greater than 55%. Overall left ventricular systolic function is normal with, an EF between 60 - 65 %. The right ventricle is normal in size and function. Normal LA size by volume 22+/-6 ml/m2. The right atrium is normal in size. The aortic valve is trileaflet, and appears structurally normal. No aortic stenosis or regurgitation. The mitral valve leaflets are mildly thickened. There is trace to mild mitral regurgitation. Trace tricuspid regurgitation present. There is no evidence of pulmonary hypertension. The right ventricular systolic pressure, as measured by Doppler, is 12.60mmHg. The pulmonic valve was not well visualized. The aortic root size is normal. Normal inferior vena cava with normal inspiratory collapse consistent with estimated right atrial pressure of 5 mmHg. The pericardium is normal. There is no pericardial effusion. CONCLUSIONS -------- 1. Sinus rhythm. 2. The pulmonic valve was not well visualized. 3. The aortic root size is normal. 4. There is no pericardial effusion. 5. Overall left ventricular systolic function is normal with, an EF between 60 - 65 %. 6. Normal LA size by volume 22+/-6 ml/m2. 7. The aortic valve is trileaflet, and appears structurally normal. No aortic stenosis or regurgitation. 8. The mitral valve leaflets are mildly thickened. 9. There is trace to mild mitral regurgitation. 10. Trace tricuspid regurgitation present. 11. There is no evidence of pulmonary hypertension. 12. The right ventricular systolic pressure, as measured by Doppler, is 12.60mmHg. PATHOLOGY LABORATORY AIDE: Latrell Haas RDCS
[2016-11-22] MEDS: HYDROCORTISONE 10 MG TAB PO SCH (13:31)
[2016-11-22] MEDS ORDERED: IV VANCOMYCIN PER PHARMACY 1 EACH MISC MISCELLANE PRN (13:47)
--- NOTE | 2016-11-22 13:48 | P.CNPUL ---
History of Present Illness Consult date: 11/22/16 Reason for consult: lung mass Chief complaint: Hip and leg pain History of present illness: This is a 61-year-old male who presented to the emergency department apparently complaining of fever chills and coughing. However upon evaluation today the patient states he was having hip and leg pain. He denies any fevers chills or cough. The patient denies chest pain. The patient states he was diagnosed with small cell lung cancer in February 2016. 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 He did have chemotherapy on Sunday and states he' s going through his second round of chemotherapy. He can't remember when his last radiation therapy was. He used to smoke up to 4 packs per day and quit in February. He does not use a nebulizer at home. He does use Symbicort twice a day. He states his biggest complaint is he cannot walk because of pain. He states his weight is "up and down." He states his weight is currently down but he doesn't know how much. Review of Systems All systems: negative Past Medical History Past Medical History: Cancer, COPD, Eye Disorder, Osteoarthritis (OA) Additional Past Medical History / Comment(s): DX Bilateral LUNG CANCER - NO SX BUT HAS HAD CHEMO AND RADIATION(COMPLETED 10 TX) and recently started a new chemo-bilateral adrenal mets and brain mets, ADDISONS DISEASE, RT EYE BLIND SINCE CHILDHOOD NOT SURE OF CAUSE, COPD MENTIONED PER PAST MED HX BUT PT DID'NT HAVE KNOWLEGE OF THIS, DDD, arthritis in back-FALL RISK. PT/FAMILY LEFT BLUE FOLDER AT BEDSIDE WITH PAST MEDICAL HX IN IT AND STATE CAREGIVERS MAY REVIEW. History of Any Multi-Drug Resistant Organisms: None Reported Past Surgical History: Cholecystectomy Additional Past Surgical History / Comment(s): BRONCHOSOCPY Past Anesthesia/Blood Transfusion Reactions: No Reported Reaction Past Psychological History: No Psychological Hx Reported Additional Psychological History / Comment(s): PT IS INDEPENDANT, LIVES WITH HIS SISTER.ONE [employer], NO OUTSIDE SERVICES. NO LONGER DRIVES, FAMILY TAKES HIM TO APPTS. Smoking Status: Former smoker Past Alcohol Use History: Heavy Additional Past Alcohol Use History / Comment(s): STARTED SMOKING AT AGE 12 WORKED HIS WAY UP TO 4 PPD, QUIT , PAST HEAVY USE OF ALCOHOL, QUIT Past Drug Use History: None Reported - Past Family History Mother Family Medical History: Cancer Additional Family Medical History / Comment(s): MOTHER OF A RUPTURED BRAIN ANEURYSM AT THE AGE OF 41 OR 42YRS. Father Family Medical History: Myocardial Infarction ([place]) Additional Family Medical History / Comment(s): FATHER OF A [place] AT THE AGE OF 62YRS Medications and Allergies Home Medications Medication Instructions Recorded Confirmed Type Acetaminophen Tab [Tylenol Tab] 1,000 mg PO Q6HR PRN 11/21/16 11/21/16 History Aloxi 25 mcg IV DIRECTED 11/21/16 11/21/16 History Docusate [Colace] 100 mg PO BID PRN 11/21/16 11/21/16 History Famotidine [Pepcid] 20 mg PO DAILY 11/21/16 11/21/16 History Hydrocodone/Acetaminophen [[place] 1 each PO Q6H PRN 11/21/16 11/21/16 History 10-325 Tablet] Hydrocortisone [Cortef] 10 mg PO DAILY@1400 11/21/16 11/21/16 History Hydrocortisone [Cortef] 20 mg PO DAILY 11/21/16 11/21/16 History Prochlorperazine [Compazine] 10 mg PO Q6H PRN 11/21/16 11/21/16 History Topotecan HCl [Hycamtin] 4 mg IV Q7D 11/21/16 11/21/16 History Allergies Allergy/AdvReac Type Severity Reaction Status Date / Time No Known Allergies Allergy Verified 11/21/16 09:46 Physical Exam Osteopathic Statement: *. No significant issues noted on an osteopathic structural exam other than those noted in the History and Physical/Consult. Vitals: Vital Signs Temp Pulse Resp BP Pulse Ox 11/22/16 13:24 89 16 88/59 94 L 11/22/16 11:12 98.9 F 98 16 99/57 94 L 11/22/16 10:18 103 H 16 99/54 94 L 11/22/16 07:41 98 F 107 H 16 122/54 98 11/22/16 04:00 97.1 F L 103 H 16 111/59 95 11/22/16 00:00 98.1 F 100 16 95/59 96 11/21/16 20:00 98.1 F 104 H 16 101/67 97 11/21/16 16:29 103/58 11/21/16 15:24 98.0 F 95 16 77/51 95 11/21/16 13:41 97.6 F 100 18 83/50 95 Intake and Output 11/21/16 11/22/16 11/22/16 22:59 06:59 14:59 Intake Total 687 1200 90 Output Total 300 550 450 Balance 387 650 -360 Intake: IV 450 1200 Sodium Chloride 0.9% 1, 450 1200 000 ml @ 150 mls/hr IV . Q6H40M [facility] Rx#:[id number] Oral 237 90 Output: Urine 300 550 450 Other: Voiding Method Urinal Urinal Urinal # Voids 1 1 Weight 69.6 kg 66.8 kg Gen.: Patient is alert and oriented 3, no acute distress, cachectic Cardiovascular: Regular rate and rhythm, S1/S2 Lungs: Diminished breath sounds on the right Abdomen: Soft nontender nondistended positive bowel sounds Extremities: No edema Results - Laboratory Findings CBC and BMP: 11/21/16 10:08 11/21/16 10:08 PT/INR, D-dimer PT 11.6 sec (9.0-12.0) 11/21/16 10:08 INR 1.2 (<1.1) 11/21/16 10:08 Abnormal lab findings: Abnormal Labs 11/21/16 11/21/16 11/21/16 10:08 10:08 10:08 WBC 11.5 H RBC 4.02 L Hgb 10.6 L Hct 35.3 L MCHC 30.1 L RDW 17.5 H Neutrophils # 9.4 H Sodium 128 L Chloride 93 L BUN 41 H Creatinine 1.51 H Total Bilirubin 1.6 H Alkaline Phosphatase 130 H Total Creatine Kinase 342 H CK-MB (CK-2) 5.1 H* Troponin I 0.046 H* Albumin 3.1 L Urine Protein Urine Blood Amorphous Sediment Urine Bacteria Urine Mucus 11/21/16 11:41 WBC RBC Hgb Hct MCHC RDW Neutrophils # Sodium Chloride BUN Creatinine Total Bilirubin Alkaline Phosphatase Total Creatine Kinase CK-MB (CK-2) Troponin I Albumin Urine Protein Trace H Urine Blood Small H Amorphous Sediment Occasional H Urine Bacteria Rare H Urine Mucus Rare H - Diagnostic Findings Chest x-ray: report reviewed, image reviewed Assessment and Plan Plan: Small cell lung cancer diagnosed in February 2016 Status post radiation with ongoing chemotherapy Increasing size of tumor on chest x-ray 2 out of 4 SIRS, possible sepsis Tracheobronchitis, possible postobstructive pneumonia History of tobacco abuse Cachexia Mild troponin elevation Dysphasia Unintentional weight loss Anemia Hyponatremia, 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 radiation therapy Sputum, blood, urine cultures Continued smoking cessation is recommended Consult dietitian Cardiology recommendations Pain control Check bone scan PT and OT Incentive spirometry and pulmonary hygiene GI and DVT prophylaxis Thank you for this consultation. We will continue to follow along.
--- NOTE | 2016-11-22 14:25 | P.PN ---
Subjective A 61-year-old male being seen and examined this morning. Patient continues to report having pain in the right hip and right leg. Patient was seen and evaluated in the emergency room admitted to the services of the attending. Patient is being seen for low-grade fever. Elevated troponin and a concern for pneumonia. Patient states it's bothering him the most was the right hip and leg pain. Additionally patient stated that he had been having cough fever at home. Patient denied chest pain. Patient was diagnosed with small cell lung cancer in February 2016. Patient reports that he had chemotherapy on Sunday. Patient stated his last radiation treatment for several months ago. Patient has a significant nicotine dependency had at one point smoked up to 4 packs a day but quit in February 2016. Patient states his big concern was that he is not able to ambulate because of the right hip and leg pain. Objective - Vital Signs Vital signs: Vital Signs Temp 98.9 F 11/22/16 11:12 Pulse 89 11/22/16 13:24 Resp 16 11/22/16 13:24 BP 88/59 11/22/16 13:24 Pulse Ox 94 L 11/22/16 13:24 Intake & Output 11/21/16 11/22/16 11/22/16 18:59 06:59 18:59 Intake Total 1087 1350 90 Output Total 300 550 450 Balance 787 800 -360 Weight 69.6 kg 66.8 kg Intake: IV 300 1350 Sodium Chloride 0.9% 1, 300 1350 000 ml @ 150 mls/hr IV . Q6H40M NICKY Rx#:[id number] Intake, IV Titration 550 Amount Azithromycin 500 mg In 250 Sodium Chloride 0.9% 250 ml @ 125 mls/hr IVPB ONCE STA Rx#:[id number] Sodium Chloride 0.9% 1, 200 000 ml @ 100 mls/hr IV . Q10H STA Rx#:[id number] cefTRIAXone 2,000 mg In 100 Sodium Chloride 0.9% 100 ml @ 100 mls/hr IVPB ONCE STA Rx#:[id number] Oral 237 90 Output: Urine 300 550 450 Other: Voiding Method Urinal Urinal # Voids 1 1 - Exam Physical exam GENERAL APPEARANCE: The patient is alert, oriented 3 sitting up in bed, in no acute distress. VITAL SIGNS: Reviewed HEENT: Head is normocephalic and atraumatic. 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 The nares are patent. Oropharynx is clear without lesions. NECK: Supple without lymphadenopathy. Traches midline. HEART: S1, S2. Regular rate and rhythm. Monitor showing sinus tach rate in the 90s to 100 LUNGS: Posterior diminished at the paces poor air entry. Sats on room air 94%. ABDOMEN: Soft, nontender, nondistended with good bowel sounds. No peritoneal signs. No palpable organomegaly or masses. EXTREMITIES: Normal skin color and turgor. No cyanosis, rash, ulceration, clubbing or edema. Radial pedal pulses are 2/4 bilaterally. Right hip and knee pain - Labs CBC & Chem 7: 11/21/16 10:08 11/21/16 10:08 Labs: Microbiology - Last 24 Hours (Table) 11/21/16 10:08 Blood Culture - Preliminary Blood No Growth after 24 hours 11/21/16 11:41 Urine Culture - Preliminary Urine,Catheterized Assessment and Plan Plan: Impression New diagnosis of small cell lung cancer February 2016 on chemoradiation treatment Status post radiation with ongoing chemotherapy for treatment of small cell lung cancer diagnosed February 2016 Right eye since childhood Significant history of nicotine dependency 4 pack a day and quit in February 2016 Present on admission tracheal bronchitis possible obstructive pneumonia Cachectic underweight BMI 20 with mild protein calorie malnutrition suspect due to poor caloric intake due to chronic illness Present on admission hyponatremia Unintentional weight loss Echocardiogram November 21 left ventricular systolic function normal with an EF between 60 and 65% Chest x-ray on November 21 marked increase in the size of the right lung mass compatible with a neoplastic compared to prior chest x-ray Physical debility Mildly elevated troponins Plan Pain control Continue recommendations by pulmonology DVT and GI prophylaxis Await cardiology input pending Oncology eval pending PT OT eval Resume home meds as appropriate Nutritional support for nutritional supplements The above dictated assessment and findings were discussed with dr wilson . Impression and the plan of care have been dictated as directed. Renata Bowens nurse practitioner acting as a scribe for dr wilson
[2016-11-22] MEDS ORDERED: VANCOMYCIN 1,500 MG in SODIUM CHLORIDE 0.9% 250 ML IVPB ONE (14:30)
--- NOTE | 2016-11-22 14:49 | P.PN ---
Subjective Principal diagnosis: tiredness and fatigue this is a 61-year-old gentleman with history of lung cancer on chemotherapy who presented to the hospital with symptoms of weakness, with associated difficulty in swallowing and significant weight loss. A troponin was drawn in the emergency room and for this reason a cardiology consultation was requested. Patient denies having any chest discomfort.troponins 0.04, 0.03, 0.02.sodium on admission 128.hemoglobin 10.6.echocardiogram with Doppler study was performed which revealed a normal left ventricular systolic function. Objective - Vital Signs Vital signs: Vital Signs Temp 98.9 F 11/22/16 11:12 Pulse 96 11/22/16 14:20 Resp 16 11/22/16 14:20 BP 122/57 11/22/16 14:20 Pulse Ox 95 11/22/16 14:20 Intake & Output 11/21/16 11/22/16 11/22/16 18:59 06:59 18:59 Intake Total 1087 1350 90 Output Total 300 550 450 Balance 787 800 -360 Weight 69.6 kg 66.8 kg Intake: IV 300 1350 Sodium Chloride 0.9% 1, 300 1350 000 ml @ 150 mls/hr IV . Q6H40M NICKY Rx#:[id number] Intake, IV Titration 550 Amount Azithromycin 500 mg In 250 Sodium Chloride 0.9% 250 ml @ 125 mls/hr IVPB ONCE STA Rx#:[id number] Sodium Chloride 0.9% 1, 200 000 ml @ 100 mls/hr IV . Q10H STA Rx#:[id number] cefTRIAXone 2,000 mg In 100 Sodium Chloride 0.9% 100 ml @ 100 mls/hr IVPB ONCE STA Rx#:[id number] Oral 237 90 Output: Urine 300 550 450 Other: Voiding Method Urinal Urinal # Voids 1 1 - Exam PHYSICAL EXAMINATION: HEENT: [Head is atraumatic, normocephalic. Pupils equal, round. Neck is supple. There is no elevated jugular venous pressure.] HEART EXAMINATION: [Heart S1, S2 normal. No murmur or gallop heard.] CHEST EXAMINATION:lungs are clear with diminished air entry to bilateral bases. ABDOMEN: [ Soft, nontender. Bowel sounds are heard. No organomegaly noted]. EXTREMITIES:[ 2+ peripheral pulses with no evidence of peripheral edema and no calf tenderness noted]. NEUROLOGIC [patient is awake, alert and oriented -3.] . - Labs CBC & Chem 7: 11/21/16 10:08 11/21/16 10:08 Labs: Microbiology - Last 24 Hours (Table) 11/21/16 10:08 Blood Culture - Preliminary Blood No Growth after 24 hours 11/21/16 11:41 Urine Culture - Preliminary Urine,Catheterized Assessment and Plan (1) Weakness Status: Acute (2) Fever Status: Acute (3) Lung cancer Status: Acute (4) Elevated troponin Status: Acute Plan: From cardiology's perspective, troponin abnormalities not consistent with acute coronary syndrome. Likely secondary to oxygen supply and demand mismatch. Echo reveals normal left ventricular systolic function. We will follow this patient with you now on an as-needed basis only, please don't hesitate to call us with any questions. DNP note has been reviewed, I agree with a documented findings and plan of care. Patient was seen and examined.
--- NOTE | 2016-11-22 15:22 | CDI ---
In responding to this query, please exercise your independent professional judgment. The [facility] Coding Staff and Clinical Documentation Specialists appreciate your assistance in clarifying documentation, maintaining compliance with coding guidelines, accurately documenting patients condition and capturing severity of illness. The fact that a question is asked does not imply that any particular answer is desired or expected. Communication forms are a method of clarifying documentation and are not made part of the Legal Health Record. Thank you in advance for your clarification. Last Revision, September 2016 Jean Paul Mary [address] [facility] [place] [address] Documentation Clarification Form Date: 11/22/2016 3:03:00 PM From: Jada Silveira Admit Date: 11/21/2016 11:20:00 AM Patient Name: Luis E Bhandari Visit Number: [id number] Discharge Date: Dr. 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 History/Risk Factors: Small cell lung cancer, Pneumonia, chronic alcoholism, Former smoker Clinical Indicators: Admit with complaints of difficulty swallowing, weakness, unable to ambulate, shortness of breath Lungs show decreased breath sounds on the right side with scattered rhonchi and wheeze. Chest x-ray: large right lung mass Vital signs on admission: 93/57 124 20 101.2 97 % RA WBC/Left Shift: ll.5 Lactic acid: 1.4 Blood cultures: Negative to date Other Clinical Indicators: Pulmonary consult: complains of fever, chills and coughing. Small cell lung cancer. 2out of 4 SIRS, possible sepsis, tracheobronchitis, possible postobstructive pneumonia, cachexia. Treatment: IV Vancomycin, IV Zosyn, Bronchodilators, Pulmicort, Pain control Consult dietitian, Monitor Labs ID Consult: Antibiotics: IV Bolus: Other: In your professional opinion, please clarify if these findings signify one of the following conditions, whether the condition is POA, and cause, if known: Sepsis, ruled out Sepsis Severe Sepsis Septic Shock Unable to determine Other, please specify Present on Admission: Yes No * Identify the (suspected) organism * Link or clarify if there is associated (due to/with): - Organ failure - Shock SIRS Criteria: 2 or more of the following may indicate SIRS Temperature < 96.8F(36C) or > 101.0F (38C) Heart Rate > 90 bpm Respiratory Rate > 20 breaths/min or PaCO2 < 32 mmHg White Blood Cell Count > 12,000 or < 4,000 cells/mm3 or > 10% bands Lactate >2.0 mmol/L (>4.0 is equivalent to septic shock) Please document in your progress notes and discharge summary in order to capture severity of illness and risk of mortality. Include clinical findings that support your diagnosis. FYI: Press F11 to launch patient chart. Place X here if this finding has no clinical significance, is not applicable or if you are not able to provide any additional documentation. JN
[2016-11-22] MEDS: PIPERACILLIN-TAZOBACTAM 3.375 GM in DEXTROSE/WATER 1 50ML.BAG IVPB SCH (19:39)
[2016-11-22] MEDS: IPRATROPIUM-ALBUTEROL 3 ML NEB INHALATION SCH (20:21)
[2016-11-22] MEDS: BUDESONIDE 0.5 MG/2 ML NEBU INHALATION SCH (20:21)
[2016-11-23] MEDS: SODIUM CHLORIDE 0.9% 1,000 ML IV SCH ×3 (00:02→16:25)
[2016-11-23] MEDS: PIPERACILLIN-TAZOBACTAM 3.375 GM in DEXTROSE/WATER 1 50ML.BAG IVPB SCH ×4 (00:02→21:25)
[2016-11-23] MEDS: HYDROcodone/APAP 10-325MG 1 EACH TAB PO PRN ×4 (00:09→21:33)
[2016-11-23] MEDS ORDERED: RX INFO: IV CONTRAST WAS GIVEN 1 EACH MISC MISCELLANE PRN (00:16)
--- NOTE | 2016-11-23 00:16 | P.CONS ---
History of Present Illness - Reason for Consult Consult date: 11/22/16 Recurrent small cell carcinoma, on chemotherapy - History of Present Illness Mr. Bhandari is a very pleasant male pt of Dr. Johnson who was seen in consult at [facility] 03/25/16 when he presented with chest pain, back pain and 40lb weight loss in 3-4 months. He was found to have a very large RUL mass, 7.4 x 7.0 x 7.0, with RML and AUGUSTO lesions, bilateral adrenal mets were suspected. He had diagnostic endobronchial biopsy with Dr. Lucas 03/28/16 revealing small cell carcinoma. Staging MRI of the brain did revel 1-2 small lesions, pt was completely asymptomatic, therefore plan was to treat systemically and do WBRT after chemo. He was started on carboplatin and etoposide. In May [address] chest showed significant improvement, head MRI, stable. In Jun 2016 pt presented with R hip pain, MRI was negative for bone mets, pt used pain meds with decent pain control. He completed 6 cycles of chemo early Jul, he was seen in follow up, CT chest showed stable disease, he was then referred for WBRT, which he completed in 09/08. He was admitted again in 09/08, with complains of lower right-sided abdominal pain radiating to the hip and to the lower extremity. X-rays of the hip and femur were negative. He was found on computed tomography scan of the abdomen to have a distended gallbladder, and was subsequently diagnosed with cholecystitis. He underwent a cholecystectomy, and was subsequently discharged. Computed tomography scan of the chest done in early 11/08 showed evidence of progression of tumor. The patient was started on second line chemotherapy with the weekly Topotecan, for 3 weeks with 1 week off with cycle. He is status post day 1 of cycle 1. Even prior to starting chemotherapy, the patient was complaining of a decrease in appetite, increasing weakness as well as some recurrence of the lower right-sided pain. Postchemotherapy, the patient developed progressive fatigue, weakness, and decrease in appetite. Oral intake declined markedly. He also had a fever at home. He therefore came into the emergency room, where he was felt to be dehydrated. He had a temperature of 101.2 in the ER. He was therefore admitted for further management. Review of Systems Constitutional: Reports fatigue, Reports poor appetite, Reports weakness, Reports weight loss Eyes: denies blurred vision, denies pain Ears: deny: decreased hearing, ear discharge, earache, tinnitus Ears, nose, mouth and throat: Denies headache, Denies sore throat Cardiovascular: Reports dyspnea on exertion Respiratory: Reports cough, Reports dyspnea Gastrointestinal: Denies abdominal pain, Denies diarrhea, Denies nausea, Denies vomiting Genitourinary: Reports as per HPI (No specific complaints) Musculoskeletal: Reports muscle weakness Musculoskeletal: right: hip pain, hip stiffness Integumentary: Denies pruritus, Denies rash Neurological: Reports weakness Psychiatric: Denies anxiety, Denies depression Endocrine: Reports fatigue, Reports weight change Hematologic/Lymphatic: Reports as per HPI Past Medical History Past Medical History: Cancer, COPD, Eye Disorder, Osteoarthritis (OA) Additional Past Medical History / Comment(s): DX Bilateral LUNG CANCER - NO SX BUT HAS HAD CHEMO AND RADIATION(COMPLETED 10 TX) and recently started a new chemo-bilateral adrenal mets and brain mets, ADDISONS DISEASE, RT EYE BLIND SINCE CHILDHOOD NOT SURE OF CAUSE, COPD MENTIONED PER PAST MED HX BUT PT DID'NT HAVE KNOWLEGE OF THIS, DDD, arthritis in back-FALL RISK. PT/FAMILY LEFT BLUE FOLDER AT BEDSIDE WITH PAST MEDICAL HX IN IT AND STATE CAREGIVERS MAY REVIEW. History of Any Multi-Drug Resistant Organisms: None Reported Past Surgical History: Cholecystectomy Additional Past Surgical History / Comment(s): BRONCHOSOCPY Past Anesthesia/Blood Transfusion Reactions: No Reported Reaction Past Psychological History: No Psychological Hx Reported Additional Psychological History / Comment(s): PT IS INDEPENDANT, LIVES WITH HIS SISTER.ONE PET-CAT, NO OUTSIDE SERVICES. NO LONGER DRIVES, FAMILY TAKES HIM TO APP[employer] Smartphone Physical. Smoking Status: Former smoker Past Alcohol Use History: Heavy Additional Past Alcohol Use History / Comment(s): STARTED SMOKING AT AGE 12 WORKED HIS WAY UP TO 4 PPD, QUIT , PAST HEAVY USE OF ALCOHOL, QUIT Past Drug Use History: None Reported - Past Family History Mother Family Medical History: Cancer Additional Family Medical History / Comment(s): MOTHER OF A RUPTURED BRAIN ANEURYSM AT THE AGE OF 41 OR 42YRS. Father Family Medical History: Myocardial Infarction (NC) Additional Family Medical History / Comment(s): FATHER OF A NC AT THE AGE OF 62YRS Medications and Allergies Home Medications Medication Instructions Recorded Confirmed Type Acetaminophen Tab [Tylenol Tab] 1,000 mg PO Q6HR PRN 11/21/16 11/21/16 History Aloxi 25 mcg IV DIRECTED 11/21/16 11/21/16 History Docusate [Colace] 100 mg PO BID PRN 11/21/16 11/21/16 History Famotidine [Pepcid] 20 mg PO DAILY 11/21/16 11/21/16 History Hydrocodone/Acetaminophen [[place] 1 each PO Q6H PRN 11/21/16 11/21/16 History 10-325 Tablet] Hydrocortisone [Cortef] 10 mg PO DAILY@1400 11/21/16 11/21/16 History Hydrocortisone [Cortef] 20 mg PO DAILY 11/21/16 11/21/16 History Prochlorperazine [Compazine] 10 mg PO Q6H PRN 11/21/16 11/21/16 History Topotecan HCl [Hycamtin] 4 mg IV Q7D 11/21/16 11/21/16 History Allergies Allergy/AdvReac Type Severity Reaction Status Date / Time No Known Allergies Allergy Verified 11/21/16 09:46 Physical Exam Vitals: Vital Signs Temp Pulse Pulse Resp BP Pulse Ox 11/22/16 20:36 90 11/22/16 20:21 88 11/22/16 20:00 97.1 F L 95 16 114/60 96 11/22/16 16:00 98 F 95 16 113/65 95 11/22/16 14:20 96 16 122/57 95 11/22/16 13:24 89 16 88/59 94 L 11/22/16 11:12 98.9 F 98 16 99/57 94 L 11/22/16 10:18 103 H 16 99/54 94 L 11/22/16 07:41 98 F 107 H 16 122/54 98 11/22/16 04:00 97.1 F L 103 H 16 111/59 95 11/22/16 00:00 98.1 F 100 16 95/59 96 Intake and Output 11/22/16 11/22/16 11/23/16 14:59 22:59 06:59 Intake Total 90 685 Output Total 450 400 Balance -360 285 Intake: IV 150 Sodium Chloride 0.9% 1, 150 000 ml @ 150 mls/hr IV . Q6H40M NICKY Rx#:[id number] Intake, IV Titration 175 Amount Piperacillin-Tazobactam 3 50 .375 gm In Dextrose/Water 1 50ml.bag @ 12.5 mls/hr IVPB Q8HR NICKY Rx#: [id number] Vancomycin 1,250 mg In 125 Sodium Chloride 0.9% 250 ml @ 125 mls/hr IVPB Q16H NICKY Rx#:[id number] Oral 90 360 Output: Urine 450 400 Other: Voiding Method Urinal Urinal # Voids 1 - Constitutional General appearance: no acute distress - EENT Eyes: EOMI, PERRLA ENT: hearing grossly normal, normal oropharynx - Neck Neck: no lymphadenopathy Thyroid: bilateral: normal size - Respiratory Respiratory: right: diminished - Cardiovascular Rhythm: regular Heart sounds: normal: S1, S2 - Gastrointestinal General gastrointestinal: normal bowel sounds, soft - Integumentary Integumentary: normal - Neurologic Neurologic: CNII-XII intact - Musculoskeletal Musculoskeletal: right sided weakness (Right lower extremity. Distal strength maintained. Able also to flex at the hip, after initial help) - Psychiatric Psychiatric: A&O x's 3, appropriate affect Results CBC & Chem 7: 11/21/16 10:08 11/21/16 10:08 Labs: Microbiology - Last 24 Hours (Table) 11/21/16 11:41 Urine Culture - Final Urine,Catheterized 11/21/16 10:08 Blood Culture - Preliminary Blood No Growth after 24 hours Assessment and Plan (1) Fever Narrative/Plan: The patient's white cell count is in a safe range. Fever pattern has improved after his initial presentation. There is no obvious source of infection. Therefore the fever could represents tumor fever in response to chemotherapy. However infection, especially postobstructive, cannot be totally ruled out. Therefore it is reasonable to treat with antibiotics, and await cultures. Status: Acute (2) Weakness Narrative/Plan: This could be related to infection of the patient does have one. However this is most likely due to effects of chemotherapy. The patient has developed decreased appetite, and dehydration. Continue supportive care with hydration. Status: Acute (3) History of lung cancer Narrative/Plan: The patient has recurrent disease, noted on CT of the chest. He has just started second line chemotherapy. Second session of chemotherapy may need to be held , if the patient is not recovered fully from this acute presentation. Monitor counts, as they may fall in the next few days the patient approaches his emeka Status: Acute (4) Hip pain, right Narrative/Plan: This has been an ongoing problem with exacerbations, since 06/09. Workup in showed no evidence of metastatic disease. During his admission in 09/08, the pain was felt to be more abdominal,. He was subsequently found to have an inflamed gallbladder and underwent cholecystectomy. However pain has since recovered, with the associated proximal weakness of the right lower extremity. I will check a computed tomography scan of the abdomen and pelvis initially to evaluate for any mass lesion. If negative, and discomfort persists, MRI can again be considered. Status: Acute
[2016-11-23] MEDS ORDERED: VANCOMYCIN 1,250 MG in SODIUM CHLORIDE 0.9% 250 ML IVPB SCH ×2 (06:00→14:00)
[2016-11-23 06:38] LABS: Anisocytosis Slight; Basophils % (A) 0 %; CH 25.7; CHCM 29.4; Eosinophils % (A) 1 %; HCT 25.6 % (39.0-53.0); HDW 2.66; Hypochromasia Marked; Luc # (Auto) 0.03; Luc % (Auto) 1; Lymphocytes # (A) 0.4 k/uL (1.0-4.8); Lymphocytes % (A) 14 %; MCH 26.9 pg (25.0-35.0); MCHC 30.8 g/dL (31.0-37.0); MCV 87.3 fL (80.0-100.0); Mean Platelet Volume 6.9; Monocytes # (A) 0.1 k/uL (0-1.0); Monocytes % (A) 2 %; Neutrophils # (A) 2.4 k/uL (1.3-7.7); Neutrophils % (A) 81 %; RBC 2.93 m/uL (4.30-5.90); RDW 17.2 % (11.5-15.5); WBC 2.9 k/uL (3.8-10.6); WBC (Perox) 3.12
[2016-11-23 06:42] LABS: HGB 7.9 gm/dL (13.0-17.5)
[2016-11-23 06:52] LABS: ALT 29 U/L (21-72); AST 27 U/L (17-59); Alkaline Phosphatase 97 U/L (38-126); Anion Gap 7 mmol/L; Blood Urea Nitrogen 12 mg/dL (9-20); Calcium 8.8 mg/dL (8.4-10.2); Carbon Dioxide 27 mmol/L (22-30); Chloride 97 mmol/L (98-107); Glucose 109 mg/dL (74-99); Non-African American GFR(MDRD) >60 (>60 ml/min/1.73 sqM); Potassium 4.4 mmol/L (3.5-5.1); Sodium 131 mmol/L (137-145); Total Bilirubin 0.4 mg/dL (0.2-1.3); Total Protein 5.3 g/dL (6.3-8.2)
[2016-11-23] MEDS: IPRATROPIUM-ALBUTEROL 3 ML NEB INHALATION SCH ×3 (08:16→19:09)
[2016-11-23] MEDS: BUDESONIDE 0.5 MG/2 ML NEBU INHALATION SCH ×2 (08:16→19:09)
[2016-11-23] MEDS: HYDROCORTISONE 20 MG TAB PO SCH (08:59)
[2016-11-23] MEDS: FAMOTIDINE 20 MG TAB PO SCH (08:59)
[2016-11-23] MEDS: IOHEXOL 350 MG/ML 25 ML BOTTLE (ORAL USE) PO PRN ×2 (10:57→11:27)
--- NOTE | 2016-11-23 13:08 | CT ---
EXAMINATION TYPE: CT abdomen pelvis w con DATE OF EXAM: 11/23/2016 REFERENCE: Previous study dated 09/11/2016. HISTORY: small lamonte lung ca - progression HISTORY: Pain right side abdominal and back pain, small cell ca lung REFERENCE: NONE CT DLP: 486.5 mGy Automated exposure control for dose reduction was used. TECHNIQUE: Helical acquisition through the abdomen and pelvis was obtained following the oral ingesti on of with Oral Contrast and following intravenous administration of 100 mL of Omnipaque 300. The bernadine a was reformatted in axial, coronal and sagittal projections. FINDINGS: There is atelectatic change present in the right middle lobe. There is no pleural or peric ardial fluid. The heart is not enlarged. Within the abdomen, the gallbladder is been removed. There is evidence of old granulomatous disease o f the spleen. The liver is unremarkable. There is a heterogenous, spiculated left adrenal mass which now measures 3.6 x 2.6 cm. It now touches the crux of the diaphragm on the left. There is also thickening of the right adrenal gland which ellyn ears stable. Both kidneys demonstrate function and appear morphologically normal. The pancreas is unremarkable. There is moderate atheromatous calcification of the aorta and iliac vessels. There is no significant retrocrural, iliac or inguinal adenopathy. Prostate gland is mildly enlarged. The bladder is unremarkable. There is uncomplicated diverticular disease involving the sigmoid colon. The appendix is not visualiz ed. Small bowel loops are normal. No free fluid and no free air is seen. There is mild degenerative disc disease and hypertrophic spondylosis in the spine. No bony destructiv e lesion is seen. IMPRESSION: 1. ENLARGING LEFT ADRENAL MASS. 2. PROMINENCE OF THE RIGHT ADRENAL GLAND. 3. EVIDENCE OF OLD GRANULOMATOUS DISEASE OF THE SPLEEN. 4. UNCOMPLICATED DIVERTICULAR DISEASE OF THE SIGMOID COLON. 5. DEGENERATIVE CHANGES IN THE SPINE.
--- NOTE | 2016-11-23 13:35 | NM ---
EXAMINATION TYPE: NM bone scan whole body DATE OF EXAM: 11/23/2016 COMPARISON: NONE HISTORY: hip/leg pain, question mets Delayed whole-body scanning was performed following the injection of 27.3 mCi Tc 99m MDP. Images acq uired 3 hours post injection. FINDINGS: There is a solitary focus of increased radiotracer accumulation overlying the region of the right SI joint which on the lateral projection appears to reside within the posterior right ilium. In retrospe ct CT of 11/23/2016 demonstrates an extremely vague lesion in this region seen best on axial image 59 o f 97 and coronal image 76 of 79 . No additional suspicious lesions are identified at this time. There is degenerative uptake noted to involve the bilateral shoulders. IMPRESSION: I suspect solitary metastatic lesion to the posterior right ilium at the approximate S1 level.
[2016-11-23] MEDS: HYDROCORTISONE 10 MG TAB PO SCH (14:00)
--- NOTE | 2016-11-23 14:27 | P.PN ---
Subjective 61-year-old male being seen and examined currently is sitting up on the edge of the bed this morning does state the pain medication has been effective for pain control. Patients being treated for sepsis secondary to pneumonia involving the right lung. Not ruled out In the emergency room the patient's temp was 101.2 tachycardic with leukocytosis. Patients being treated for lung cancer undergoing chemotherapy patient's been followed by hematology, oncology service. Patient did have a CAT scan of the chest done on November 08 which did show evidence of progression of the tumor. Patient started on second line chemotherapy. Postchemotherapy treatment patient developed progressive weakness fatigue decreased appetite decreased endurance. Therefore the above clinical presentation prompted the patient to present to the emergency room. The patient was felt to be dehydrated. The temp and the emergency room was 101.2. Pneumonia involving the right lung could not be excluded by chest x-ray Objective - Vital Signs Vital signs: Vital Signs Temp 97.2 F L 11/23/16 12:00 Pulse 105 H 11/23/16 13:50 Resp 16 11/23/16 13:50 BP 136/83 11/23/16 12:00 Pulse Ox 98 11/23/16 12:00 Intake & Output 11/22/16 11/23/16 11/23/16 18:59 06:59 18:59 Intake Total 90 1885 770 Output Total 450 1100 600 Balance -360 785 170 Weight 68 kg 68 kg Intake: IV 1350 Sodium Chloride 0.9% 1, 1350 000 ml @ 150 mls/hr IV . Q6H40M [facility] Rx#:[id number] Intake, IV Titration 175 50 Amount Piperacillin-Tazobactam 3 50 50 .375 gm In Dextrose/Water 1 50ml.bag @ 12.5 mls/hr IVPB Q8HR [facility] Rx#: [id number] Vancomycin 1,250 mg In 125 Sodium Chloride 0.9% 250 ml @ 125 mls/hr IVPB Q16H [facility] Rx#:[id number] Oral 90 360 720 Output: Urine 450 1100 600 Other: Voiding Method Urinal Urinal Urinal # Voids 1 1 - Exam Physical exam 61-year-old gentleman sitting up on the edge of the bed this morning taking a diet more awake more alert states less pain in the right hip and right knee Lungs diminished at the bases poor air entry sats on room air 98% Heart S1-S2 audible regular Abdomen flat nontender no nausea no vomiting Extremities no edema to the lower or upper extremity - Labs CBC & Chem 7: 11/23/16 06:15 11/23/16 06:15 Labs: Abnormal Lab Results - Last 24 Hours (Table) 11/23/16 11/23/16 Range/Units 06:15 06:15 WBC 2.9 L (3.8-10.6) k/uL RBC 2.93 L (4.30-5.90) m/uL Hgb 7.9 L D (13.0-17.5) gm/dL Hct 25.6 L (39.0-53.0) % MCHC 30.8 L (31.0-37.0) g/dL RDW 17.2 H (11.5-15.5) % Plt Count 114 L (150-450) k/uL Lymphocytes # 0.4 L (1.0-4.8) k/uL Sodium 131 L (137-145) mmol/L Chloride 97 L (98-107) mmol/L Glucose 109 H (74-99) mg/dL Total Protein 5.3 L (6.3-8.2) g/dL Albumin 2.3 L (3.5-5.0) g/dL Microbiology - Last 24 Hours (Table) 11/21/16 10:08 Blood Culture - Preliminary Blood No Growth after 48 hours 11/21/16 11:41 Urine Culture - Final Urine,Catheterized Assessment and Plan Plan: Impression New diagnosis of small cell lung cancer February 2016 on chemoradiation treatment Status post radiation with ongoing chemotherapy for treatment of small cell lung cancer diagnosed February 2016 Right eye since childhood Significant history of nicotine dependency 4 pack a day and quit in February 2016 Present on admission tracheal bronchitis possible obstructive pneumonia Cachectic underweight BMI 20 with mild protein calorie malnutrition suspect due to poor caloric intake due to chronic illness Present on admission hyponatremia Unintentional weight loss Echocardiogram November 21 left ventricular systolic function normal with an EF between 60 and 65% Chest x-ray on November 21 marked increase in the size of the right lung mass compatible with a neoplastic compared to prior chest x-ray Physical debility Mildly elevated troponins Present on admission febrile temp up 102.8 leukocytosis tachycardic meet SIRS criteria sepsis suspect due to right lung pneumonia not ruled out Anemia with no evidence of acute blood loss CAT scan abdomen pelvis done on November 23 show enlarging left adrenal mass with uncomplicated diverticulitis disease of the sigmoid colon Plan Pain control Continue recommendations by pulmonology DVT and GI prophylaxis Await cardiology input pending Stool for occult blood PT OT eval Resume home meds as appropriate Nutritional support for nutritional supplements Repeat labs in the morning The above dictated assessment and findings were discussed with dr wilson . Impression and the plan of care have been dictated as directed. Renata Bowens nurse practitioner acting as a scribe for dr wilson
--- NOTE | 2016-11-23 14:28 | P.PN ---
Subjective Principal diagnosis: Lung cancer Patient seen and examined. Patient states his breathing is better today. He states his cough is improving. He denies fevers and chills. He states his pain is improving today as well. Objective - Vital Signs Vital signs: Vital Signs Temp 97.2 F L 11/23/16 12:00 Pulse 105 H 11/23/16 13:50 Resp 16 11/23/16 13:50 BP 136/83 11/23/16 12:00 Pulse Ox 98 11/23/16 12:00 Intake & Output 11/22/16 11/23/16 11/23/16 18:59 06:59 18:59 Intake Total 90 1885 770 Output Total 450 1100 600 Balance -360 785 170 Weight 68 kg 68 kg Intake: IV 1350 Sodium Chloride 0.9% 1, 1350 000 ml @ 150 mls/hr IV . Q6H40M [facility] Rx#:[id number] Intake, IV Titration 175 50 Amount Piperacillin-Tazobactam 3 50 50 .375 gm In Dextrose/Water 1 50ml.bag @ 12.5 mls/hr IVPB Q8HR [facility] Rx#: [id number] Vancomycin 1,250 mg In 125 Sodium Chloride 0.9% 250 ml @ 125 mls/hr IVPB Q16H [facility] Rx#:[id number] Oral 90 360 720 Output: Urine 450 1100 600 Other: Voiding Method Urinal Urinal Urinal # Voids 1 1 - Exam Gen.: Patient is alert and oriented 3, no acute distress, cachectic Cardiovascular: Regular rate and rhythm, S1/S2 Lungs: Diminished breath sounds on the right Abdomen: Soft nontender nondistended positive bowel sounds Extremities: No edema - Labs CBC & Chem 7: 11/23/16 06:15 11/23/16 06:15 Labs: Abnormal Lab Results - Last 24 Hours (Table) 11/23/16 11/23/16 Range/Units 06:15 06:15 WBC 2.9 L (3.8-10.6) k/uL RBC 2.93 L (4.30-5.90) m/uL Hgb 7.9 L D (13.0-17.5) gm/dL Hct 25.6 L (39.0-53.0) % MCHC 30.8 L (31.0-37.0) g/dL RDW 17.2 H (11.5-15.5) % Plt Count 114 L (150-450) k/uL Lymphocytes # 0.4 L (1.0-4.8) k/uL Sodium 131 L (137-145) mmol/L Chloride 97 L (98-107) mmol/L Glucose 109 H (74-99) mg/dL Total Protein 5.3 L (6.3-8.2) g/dL Albumin 2.3 L (3.5-5.0) g/dL Microbiology - Last 24 Hours (Table) 11/21/16 10:08 Blood Culture - Preliminary Blood No Growth after 48 hours 11/21/16 11:41 Urine Culture - Final Urine,Catheterized Assessment and Plan Plan: Small cell lung cancer diagnosed in February 2016 Status post radiation with ongoing chemotherapy Increasing size of tumor on chest x-ray 2 out of 4 SIRS, possible sepsis Tracheobronchitis, possible postobstructive pneumonia Right ilium bone metastases Enlarging left adrenal mass, likely metastases History of tobacco abuse Cachexia Mild troponin elevation Dysphasia Unintentional weight loss Anemia Hyponatremia, likely paraneoplastic Acute kidney injury, likely secondary to dehydration O2 to maintain saturation greater than or equal to 88% Antibiotics: Vanco, Zosyn Bronchodilators Pulmicort Oncology recommendations Sputum, blood, urine cultures Continued smoking cessation is recommended Consult dietitian Cardiology recommendations Pain control PT and OT Incentive spirometry and pulmonary hygiene GI and DVT prophylaxis
[2016-11-23 14:35] VITALS: BMI 20.3
[2016-11-23] MEDS ORDERED: SODIUM FERRIC GLUCONAT-SUCROSE 125 MG in SODIUM CHLORIDE 0.9% 100 ML IVPB ONE (16:00)
[2016-11-23] MEDS: VANCOMYCIN 1,250 MG in SODIUM CHLORIDE 0.9% 250 ML IVPB SCH (19:10)
[2016-11-24] MEDS: VANCOMYCIN 1,250 MG in SODIUM CHLORIDE 0.9% 250 ML IVPB SCH ×3 (02:28→17:51)
[2016-11-24] MEDS: PIPERACILLIN-TAZOBACTAM 3.375 GM in DEXTROSE/WATER 1 50ML.BAG IVPB SCH ×3 (04:54→19:50)
[2016-11-24] MEDS: HYDROcodone/APAP 10-325MG 1 EACH TAB PO PRN ×3 (04:59→19:49)
[2016-11-24 08:14] LABS: Anisocytosis Slight; Basophils % (A) 0 %; CH 25.7; CHCM 29.1; Eosinophils % (A) 1 %; HCT 28.7 % (39.0-53.0); HDW 2.62; HGB 8.5 gm/dL (13.0-17.5); Hypochromasia Marked; Luc # (Auto) 0.05; Luc % (Auto) 2; Lymphocytes # (A) 0.6 k/uL (1.0-4.8); Lymphocytes % (A) 19 %; MCH 26.1 pg (25.0-35.0); MCHC 29.7 g/dL (31.0-37.0); MCV 87.9 fL (80.0-100.0); Mean Platelet Volume 6.9; Monocytes # (A) 0.1 k/uL (0-1.0); Monocytes % (A) 2 %; Neutrophils # (A) 2.2 k/uL (1.3-7.7); Neutrophils % (A) 76 %; RBC 3.27 m/uL (4.30-5.90); RDW 17.1 % (11.5-15.5); WBC 2.9 k/uL (3.8-10.6)
[2016-11-24 08:30] LABS: ALT 28 U/L (21-72); AST 26 U/L (17-59); Alkaline Phosphatase 105 U/L (38-126); Anion Gap 8 mmol/L; Blood Urea Nitrogen 9 mg/dL (9-20); Calcium 9.1 mg/dL (8.4-10.2); Carbon Dioxide 29 mmol/L (22-30); Chloride 95 mmol/L (98-107); Glucose 85 mg/dL (74-99); Non-African American GFR(MDRD) >60 (>60 ml/min/1.73 sqM); Potassium 4.3 mmol/L (3.5-5.1); Sodium 132 mmol/L (137-145); Total Bilirubin 0.4 mg/dL (0.2-1.3)
[2016-11-24] MEDS: BUDESONIDE 0.5 MG/2 ML NEBU INHALATION SCH ×2 (08:43→20:42)
[2016-11-24] MEDS: IPRATROPIUM-ALBUTEROL 3 ML NEB INHALATION SCH ×3 (08:43→20:42)
[2016-11-24] MEDS: FAMOTIDINE 20 MG TAB PO SCH (09:40)
[2016-11-24] MEDS: HYDROCORTISONE 20 MG TAB PO SCH (09:40)
[2016-11-24 11:32] LABS: Iron 54 ug/dL (49-181)
[2016-11-24] MEDS: SODIUM CHLORIDE 0.9% 1,000 ML IV SCH (11:35)
[2016-11-24 11:43] LABS: Total Iron Binding Capacity 193 ug/dL (261-462)
--- NOTE | 2016-11-24 12:39 | P.PN ---
Subjective 61-year-old male being seen and examined. Patient's currently sitting up on the edge of the bed does state that the pain in his right hip and knee has improved less painful. Hemoglobin this morning is 8.5. Was 7.9 the day before white count 2.9 has remained afebrile she currently is being followed by pulmonology as well as oncology service chest x-ray report on November 21 was reviewed that shows a marked increase in the size of the right lung mass compatible with a neoplastic. The lesion measures 15 x 12 cm in size which has significantly increased patient does have a history of small cell lung cancer Objective - Vital Signs Vital signs: Vital Signs Temp 98.7 F 11/24/16 07:00 Pulse 100 11/24/16 08:51 Resp 16 11/24/16 07:00 BP 82/62 11/24/16 07:00 Pulse Ox 94 L 11/24/16 07:00 Intake & Output 11/23/16 11/24/16 11/24/16 18:59 06:59 18:59 Intake Total 770 1125 Output Total 900 Balance -130 1125 Weight 68 kg Intake: IV 225 Sodium Chloride 0.9% 1, 225 000 ml @ 75 mls/hr IV . [id number] [facility] Rx#:[id number] Intake, IV Titration 50 550 Amount Piperacillin-Tazobactam 3 50 .375 gm In Dextrose/Water 1 50ml.bag @ 12.5 mls/hr IVPB Q8H [facility] Rx#: [id number] Piperacillin-Tazobactam 3 50 .375 gm In Dextrose/Water 1 50ml.bag @ 12.5 mls/hr IVPB Q8HR [facility] Rx#: [id number] Vancomycin 1,250 mg In 500 Sodium Chloride 0.9% 250 ml @ 125 mls/hr IVPB Q8H [facility] Rx#:[id number] Oral 720 350 Output: Urine 900 Other: Voiding Method Urinal Urinal # Voids 1 320 - Exam Physical exam 61-year-old gentleman talkative cooperative sitting up on the edge of the bed this morning taking a diet more awake more alert states less pain in the right hip and right knee Lungs diminished at the bases poor air entry sats on room air 98% Heart S1-S2 audible regular Abdomen flat nontender no nausea no vomiting states urinating with no difficulty no frequent stooling states appetite is slowly improving Extremities bilaterally no edema - Labs CBC & Chem 7: 11/24/16 07:51 11/24/16 07:51 Labs: Abnormal Lab Results - Last 24 Hours (Table) 11/24/16 11/24/16 Range/Units 07:51 07:51 WBC 2.9 L (3.8-10.6) k/uL RBC 3.27 L (4.30-5.90) m/uL Hgb 8.5 L (13.0-17.5) gm/dL Hct 28.7 L (39.0-53.0) % MCHC 29.7 L (31.0-37.0) g/dL RDW 17.1 H (11.5-15.5) % Plt Count 96 L (150-450) k/uL Lymphocytes # 0.6 L (1.0-4.8) k/uL Sodium 132 L (137-145) mmol/L Chloride 95 L (98-107) mmol/L TIBC 193 L (261-462) ug/dL Total Protein 6.0 L (6.3-8.2) g/dL Albumin 2.8 L (3.5-5.0) g/dL Microbiology - Last 24 Hours (Table) 11/21/16 10:08 Blood Culture - Preliminary Blood No Growth after 48 hours Assessment and Plan Plan: Impression New diagnosis of small cell lung cancer February 2016 on chemoradiation treatment last radiation treatment August 2016 Status post radiation with ongoing chemotherapy for treatment of small cell lung cancer diagnosed February 2016 Right eye since childhood Significant history of nicotine dependency 4 pack a day and quit in February 2016 Present on admission tracheal bronchitis with obstructive pneumonia Cachectic underweight BMI 20 with mild protein calorie malnutrition suspect due to poor caloric intake due to chronic illness Present on admission hyponatremia Unintentional weight loss Echocardiogram November 21 left ventricular systolic function normal with an EF between 60 and 65% Chest x-ray on November 21 marked increase in the size of the right lung mass compatible with a neoplastic compared to prior chest x-ray Physical debility Mildly elevated troponins Present on admission febrile temp up 102.8 leukocytosis tachycardic meet SIRS criteria sepsis suspect due to right lung pneumonia not ruled out Anemia with no evidence of acute blood loss CAT scan abdomen pelvis done on November 23 show enlarging left adrenal mass with uncomplicated diverticulitis disease of the sigmoid colon Chest x-ray on November 21 shows a marked increased size of the right lung mass compatible with neoplastic measuring 15 x 12 cm in size has increased significantly from prior exam Anemia suspect of chronic illness no evidence of acute GI bleed Plan Await further recommendations by oncology concerns about the enlarging lung mass on the right side Pain control Continue recommendations by pulmonology DVT and GI prophylaxis Await cardiology input pending Stool for occult blood PT OT eval Resume home meds as appropriate Nutritional support for nutritional supplements Repeat labs in the morning The above dictated assessment and findings were discussed with dr wilson . Impression and the plan of care have been dictated as directed. Renata Bowens nurse practitioner acting as a scribe for dr wilson
[2016-11-24] MEDS ORDERED: SODIUM FERRIC GLUCONAT-SUCROSE 125 MG in SODIUM CHLORIDE 0.9% 100 ML IVPB ONE (14:00)
[2016-11-24] MEDS: HYDROCORTISONE 10 MG TAB PO SCH (15:48)
[2016-11-24] MEDS ORDERED: HEPARIN SODIUM,PORCINE 5,000 UNIT/ML 1 ML VIAL SQ SCH (16:00)
--- NOTE | 2016-11-24 16:01 | P.CONS ---
History of Present Illness - Chief Complaint Medical debility - History of Present Illness I had the opportunity to see patient for inpatient rehab consultation with regard to medical debility. He was admitted to [facility] November 21 with acute onset weakness and inability to stand and fever, status post chemotherapy. Seen by Dr. Bermudez for small cell cancer and seen by Dr. Melendrez for the cancer as well. Chest x-ray demonstrates a right lung mass that is known. CT of abdomen and pelvis demonstrates some large left adrenal and right adrenal masses, old granulomatous change spleen, diverticular disease sigmoid and degenerative disc disease of lumbar spine. Bone scan demonstrates lesion in the right ilium. PT reports supervision for functional mobility and gait 20 feet with roller walker. OT reports supervision for upper and lower dressing, toileting and functional debility. Supervision to minimal assistance for bathing. Previous functional history, as elicited from patient: 61-year-old right-handed white male who is lives and 2 floor home. Lives with sister and sister 's in their kids. Sister does the cooking laundry. Patient describes independent with dressing, toileting, standing shower and gait without device. Dr. Winston is regular doctor and Dr. starr is oncologist. Family history of father of NM and mother of brain aneurysm. Review of Systems Review of systems: ENT: Denies sneezes or discharge. Eyes: Denies discharge or photophobia. Cardiac: Denies chest pain or palpitation. Pulmonary: Denies cough or shortness of breath. Gastrointestinal: Denies nausea, emesis, constipation, diarrhea. Genitourinary: Denies discharge or frequency. Musculoskeletal: Discomfort and right hip and leg. Neurologic: Denies motor or sensory change. Mild generalized weakness. Endocrine: Denies shakes or sweats. Oncology: Denies cancers. Dermatologic: Denies rash, itching, pruritus. ALLERGY/immunology: Denies sneezes, rashes. Past Medical History Past Medical History: Cancer, COPD, Eye Disorder, Osteoarthritis (OA) Additional Past Medical History / Comment(s): DX Bilateral LUNG CANCER - NO SX BUT HAS HAD CHEMO AND RADIATION(COMPLETED 10 TX) and recently started a new chemo-bilateral adrenal mets and brain mets, ADDISONS DISEASE, RT EYE BLIND SINCE CHILDHOOD NOT SURE OF CAUSE, COPD MENTIONED PER PAST MED HX BUT PT DID'NT HAVE KNOWLEGE OF THIS, DDD, arthritis in back-FALL RISK. PT/FAMILY LEFT BLUE FOLDER AT BEDSIDE WITH PAST MEDICAL HX IN IT AND STATE CAREGIVERS MAY REVIEW. History of Any Multi-Drug Resistant Organisms: None Reported Past Surgical History: Cholecystectomy Additional Past Surgical History / Comment(s): BRONCHOSOCPY Past Anesthesia/Blood Transfusion Reactions: No Reported Reaction Past Psychological History: No Psychological Hx Reported Additional Psychological History / Comment(s): PT IS INDEPENDANT, LIVES WITH HIS SISTER.ONE [employer]-CAT, NO OUTSIDE SERVICES. NO LONGER DRIVES, FAMILY TAKES HIM TO [id number]. Smoking Status: Former smoker Past Alcohol Use History: Heavy Additional Past Alcohol Use History / Comment(s): STARTED SMOKING AT AGE 12 WORKED HIS WAY UP TO 4 PPD, QUIT , PAST HEAVY USE OF ALCOHOL, QUIT Past Drug Use History: None Reported - Past Family History Mother Family Medical History: Cancer Additional Family Medical History / Comment(s): MOTHER OF A RUPTURED BRAIN ANEURYSM AT THE AGE OF 41 OR 42YRS. Father Family Medical History: Myocardial Infarction (NM) Additional Family Medical History / Comment(s): FATHER OF A NM AT THE AGE OF 62YRS Medications and Allergies Home Medications Medication Instructions Recorded Confirmed Type Acetaminophen Tab [Tylenol Tab] 1,000 mg PO Q6HR PRN 11/21/16 11/21/16 History Aloxi 25 mcg IV DIRECTED 11/21/16 11/21/16 History Docusate [Colace] 100 mg PO BID PRN 11/21/16 11/21/16 History Famotidine [Pepcid] 20 mg PO DAILY 11/21/16 11/21/16 History Hydrocodone/Acetaminophen [[place] 1 each PO Q6H PRN 11/21/16 11/21/16 History 10-325 Tablet] Hydrocortisone [Cortef] 10 mg PO DAILY@1400 11/21/16 11/21/16 History Hydrocortisone [Cortef] 20 mg PO DAILY 11/21/16 11/21/16 History Prochlorperazine [Compazine] 10 mg PO Q6H PRN 11/21/16 11/21/16 History Topotecan HCl [Hycamtin] 4 mg IV Q7D 11/21/16 11/21/16 History Allergies Allergy/AdvReac Type Severity Reaction Status Date / Time No Known Allergies Allergy Verified 11/21/16 09:46 Physical Exam Vitals: Vital Signs Temp Pulse Pulse Resp BP BP Pulse Ox 11/24/16 14:53 99 F 110 H 16 100/66 96 11/24/16 08:51 100 11/24/16 08:45 100 11/24/16 07:00 98.7 F 106 H 16 82/62 94 L 11/23/16 23:00 97 F L 105 H 16 130/74 95 11/23/16 19:22 88 11/23/16 19:09 84 11/23/16 16:00 105 H 16 Intake and Output 11/24/16 11/24/16 11/24/16 06:59 14:59 22:59 Intake Total 600 Balance 600 Intake: IV 150 Sodium Chloride 0.9% 1, 150 000 ml @ 75 mls/hr IV . [id number] [facility] Rx#:[id number] Intake, IV Titration 300 Amount Piperacillin-Tazobactam 3 50 .375 gm In Dextrose/Water 1 50ml.bag @ 12.5 mls/hr IVPB Q8H [facility] Rx#: [id number] Vancomycin 1,250 mg In 250 Sodium Chloride 0.9% 250 ml @ 125 mls/hr IVPB Q8H [facility] Rx#:[id number] Oral 150 Other: Voiding Method Urinal Skin: Good color, texture, turgor. General: Medium build and comfortable appearance. Head: Normocephalic, atraumatic. Eyes: Right eye is clouded and apparently been so since childhood, legally blind. Left eye appears within normal limits. Ears: Symmetric. Hearing within normal limits. Mouth: Clear. Neck: Supple. Carotid without bruit. Cardiac: Regular rate and rhythm. Lungs: Clear anteriorly and posteriorly. Abdomen: Soft active nontender. Extremities: Normal tone. Neurological: Mental status: Alert, cooperative, pleasant. Cranial nerves: Symmetric facial tone and trapezius. Motor: Normal strength and isolation all 4 limbs. Perhaps with giveaway weakness right leg due to pain. Sensation: Intact throughout. DTRs: Symmetric and equal throughout. Mobility: Sits and stands with standby assistance at most. Results CBC & Chem 7: 11/24/16 07:51 11/24/16 07:51 Labs: Abnormal Lab Results - Last 24 Hours (Table) 11/24/16 11/24/16 Range/Units 07:51 07:51 WBC 2.9 L (3.8-10.6) k/uL RBC 3.27 L (4.30-5.90) m/uL Hgb 8.5 L (13.0-17.5) gm/dL Hct 28.7 L (39.0-53.0) % MCHC 29.7 L (31.0-37.0) g/dL RDW 17.1 H (11.5-15.5) % Plt Count 96 L (150-450) k/uL Lymphocytes # 0.6 L (1.0-4.8) k/uL Sodium 132 L (137-145) mmol/L Chloride 95 L (98-107) mmol/L TIBC 193 L (261-462) ug/dL Ferritin 1050 H (18-464) ng/mL Total Protein 6.0 L (6.3-8.2) g/dL Albumin 2.8 L (3.5-5.0) g/dL Microbiology - Last 24 Hours (Table) 11/21/16 10:08 Blood Culture - Preliminary Blood No Growth after 72 hours Chest x-ray: report reviewed (Demonstrates a right lung mass.) CT scan - abdomen: report reviewed (Of abdomen and pelvis demonstrates enlarged left adrenal, right adrenal. There is old granulomatous change spleen. Diverticular disease sigmoid. Degenerative disc disease lumbar spine.) Assessment and Plan (1) Hip pain, right Status: Acute Plan: Impression: 1. Medical debility. 2. Small cell lung cancer with multiple metastases. 3. Right ilium lesion currently with right hip and leg pain. 4. 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 5. COPD. 6. Osteoarthritis. Comments and plan: At this time PT and OT are ongoing. Patient is approximately supervision level for functional mobility and basic self-care tasks. Patient doing well. Would anticipate home with family support as well as support services peeer your discretion.
[2016-11-24] MEDS ORDERED: VANCOMYCIN TROUGH DUE 1 EACH MISC MISCELLANE ONE (17:00)
--- NOTE | 2016-11-24 17:45 | P.PN ---
Subjective The patient is feeling stronger, with IV hydration. However is still remains weak and ability is limited. Pain in the right groin/right lower abdomen is improved Objective - Vital Signs Vital signs: Vital Signs Temp 99 F 11/24/16 14:53 Pulse 100 11/24/16 16:11 Resp 16 11/24/16 14:53 BP 100/66 11/24/16 14:53 Pulse Ox 96 11/24/16 14:53 Intake & Output 11/23/16 11/24/16 11/24/16 18:59 06:59 18:59 Intake Total 770 1125 420 Output Total 900 Balance -130 1125 420 Weight 68 kg Intake: IV 225 120 Sodium Chloride 0.9% 1, 225 120 000 ml @ 75 mls/hr IV . [id number] [facility] Rx#:[id number] Intake, IV Titration 50 550 300 Amount Piperacillin-Tazobactam 3 50 50 .375 gm In Dextrose/Water 1 50ml.bag @ 12.5 mls/hr IVPB Q8H [facility] Rx#: [id number] Piperacillin-Tazobactam 3 50 .375 gm In Dextrose/Water 1 50ml.bag @ 12.5 mls/hr IVPB Q8HR [facility] Rx#: [id number] Vancomycin 1,250 mg In 500 250 Sodium Chloride 0.9% 250 ml @ 125 mls/hr IVPB Q8H [facility] Rx#:[id number] Oral 720 350 Output: Urine 900 Other: Voiding Method Urinal Urinal # Voids 1 320 - Constitutional General appearance: Present: no acute distress - EENT EENT Comment(s): Right corneal opacity Eyes: Present: EOMI ENT: Present: hearing grossly normal, normal oropharynx - Respiratory Respiratory: bilateral: CTA - Cardiovascular Rhythm: regular Heart sounds: normal: S1, S2 - Gastrointestinal General gastrointestinal: Present: normal bowel sounds, soft - Integumentary Integumentary: Present: normal - Neurologic Neurologic: Present: CNII-XII intact - Musculoskeletal Musculoskeletal: Present: generalized weakness, strength equal bilaterally - Psychiatric Psychiatric: Present: A&O x's 3, intact judgment & insight - Labs CBC & Chem 7: 11/24/16 07:51 11/24/16 07:51 Labs: Abnormal Lab Results - Last 24 Hours (Table) 11/24/16 11/24/16 Range/Units 07:51 07:51 WBC 2.9 L (3.8-10.6) k/uL RBC 3.27 L (4.30-5.90) m/uL Hgb 8.5 L (13.0-17.5) gm/dL Hct 28.7 L (39.0-53.0) % MCHC 29.7 L (31.0-37.0) g/dL RDW 17.1 H (11.5-15.5) % Plt Count 96 L (150-450) k/uL Lymphocytes # 0.6 L (1.0-4.8) k/uL Sodium 132 L (137-145) mmol/L Chloride 95 L (98-107) mmol/L TIBC 193 L (261-462) ug/dL Ferritin 1050 H (18-464) ng/mL Total Protein 6.0 L (6.3-8.2) g/dL Albumin 2.8 L (3.5-5.0) g/dL Microbiology - Last 24 Hours (Table) 11/21/16 10:08 Blood Culture - Preliminary Blood No Growth after 72 hours Assessment and Plan (1) Fever Narrative/Plan: Fever has resolved though the patient remains somewhat tachycardic. Cultures are negative. He continues on Zosyn. White cell count has declined, but ANC is still in a safe range. Tumor fever is a consideration P Status: Acute (2) Weakness Narrative/Plan: This is improved with the hydration, though it is still quite significant. Case was discussed with the admitting service and case management. ECF placement is being discussed. However it was confirmed that therapy could not be administered as the patient was an ECF resident. Therefore to ensure continuation of treatment, it is desirable that the patient be able to discharged home. The patient was urged to continue working with physical therapy. Hopefully he will improve enough to be able to be discharged home with continued physical therapy outpatient. Status: Acute (3) History of lung cancer Narrative/Plan: Case was discussed with primary medicine. CT of the abdomen and pelvis shows progression in the adrenal gland. It is already known that the patient is progressing due to which he was started back on chemotherapy very recently. Plan would be to resume chemotherapy with Topotecan in the outpatient setting as soon as the patient's PSA is sufficiently improved. He will likely need dose reduction. Status: Acute (4) Hip pain, right Narrative/Plan: Etiology of this remains unclear. No definite abnormality was noted on CT of the abdomen and pelvis or bone scan to explain his pain. A possible vague lesion was seen in the right ilium, but that appears to be too minor to explain his symptoms. This is improved on current pain medications. Status: Acute
[2016-11-25] MEDS: HYDROcodone/APAP 10-325MG 1 EACH TAB PO PRN ×2 (03:40→22:14)
[2016-11-25] MEDS: SODIUM CHLORIDE 0.9% 1,000 ML IV SCH ×3 (03:41→13:10)
[2016-11-25] MEDS: PIPERACILLIN-TAZOBACTAM 3.375 GM in DEXTROSE/WATER 1 50ML.BAG IVPB SCH ×3 (03:41→22:14)
[2016-11-25 07:31] LABS: Anisocytosis Slight; Basophils % (A) 0 %; CH 26.1; CHCM 30.4; Eosinophils % (A) 1 %; HCT 27.5 % (39.0-53.0); HDW 2.75; HGB 8.5 gm/dL (13.0-17.5); Hypochromasia Moderate; Luc % (Auto) 3; Lymphocytes # (A) 0.5 k/uL (1.0-4.8); Lymphocytes % (A) 12 %; MCH 26.5 pg (25.0-35.0); MCHC 30.9 g/dL (31.0-37.0); MCV 85.8 fL (80.0-100.0); Mean Platelet Volume 6.5; Monocytes # (A) 0.1 k/uL (0-1.0); Monocytes % (A) 3 %; Neutrophils % (A) 81 %; RDW 17.3 % (11.5-15.5); WBC 3.7 k/uL (3.8-10.6); WBC (Perox) 4.05
[2016-11-25] MEDS: VANCOMYCIN 1,500 MG in SODIUM CHLORIDE 0.9% 250 ML IVPB SCH ×2 (07:55→19:16)
[2016-11-25] MEDS: HYDROCORTISONE 20 MG TAB PO SCH (07:56)
[2016-11-25] MEDS: FAMOTIDINE 20 MG TAB PO SCH (07:56)
[2016-11-25] MEDS: BUDESONIDE 0.5 MG/2 ML NEBU INHALATION SCH ×2 (08:01→20:33)
[2016-11-25] MEDS: IPRATROPIUM-ALBUTEROL 3 ML NEB INHALATION SCH ×3 (08:01→20:33)
[2016-11-25] MEDS: ACETAMINOPHEN TAB 500 MG TAB PO PRN (09:56)
[2016-11-25] MEDS: HYDROCORTISONE 10 MG TAB PO SCH (13:06)
--- NOTE | 2016-11-25 16:02 | PN ---
DATE OF SERVICE: 11/25/2016 He feels weak, unable to take a deep breath. On physical examination, his blood pressure is 124/66, respiratory rate of 16, pulse rate of 97, temperature 98.1, O2 sats on room air is 95%. HEENT is unremarkable. Chest reveals decreased breath sounds. No clear wheeze. Cardiovascular S1 and S2. Abdomen is soft. There is no pedal edema. IMPRESSION: 1. Small cell cancer of the lung, status post chemo radiation. 2. Pneumonia, possible obstructive pneumonia. 3. Hyponatremia. 4. Medical debility. Continue antibiotics. Have ID further evaluate the patient. Increase his activity level. He has been evaluated by [facility]. Hopefully he will be a candidate for a rehab unit. His prognosis is guarded.
[2016-11-25 22:36] VITALS: RESP 16
[2016-11-26] MEDS: PIPERACILLIN-TAZOBACTAM 3.375 GM in DEXTROSE/WATER 1 50ML.BAG IVPB SCH ×3 (05:17→21:44)
[2016-11-26] MEDS ORDERED: VANCOMYCIN TROUGH DUE 1 EACH MISC MISCELLANE ONE (06:00)
[2016-11-26 07:37] LABS: Anion Gap 6 mmol/L; Blood Urea Nitrogen 9 mg/dL (9-20); Calcium 8.9 mg/dL (8.4-10.2); Carbon Dioxide 27 mmol/L (22-30); Chloride 99 mmol/L (98-107); Glucose 85 mg/dL (74-99); Non-African American GFR(MDRD) >60 (>60 ml/min/1.73 sqM); Potassium 3.9 mmol/L (3.5-5.1); Sodium 132 mmol/L (137-145)
[2016-11-26] MEDS: HYDROmorphone 1 MG/ML 1 ML SYRINGE IV PRN ×2 (09:40→20:49)
[2016-11-26] MEDS: VANCOMYCIN 1,500 MG in SODIUM CHLORIDE 0.9% 250 ML IVPB SCH ×2 (09:43→19:35)
[2016-11-26] MEDS: SODIUM CHLORIDE 0.9% 1,000 ML IV SCH (09:46)
[2016-11-26] MEDS: FAMOTIDINE 20 MG TAB PO SCH (10:01)
[2016-11-26] MEDS: HYDROCORTISONE 20 MG TAB PO SCH (10:01)
[2016-11-26] MEDS: BUDESONIDE 0.5 MG/2 ML NEBU INHALATION SCH ×2 (11:33→19:23)
[2016-11-26] MEDS: IPRATROPIUM-ALBUTEROL 3 ML NEB INHALATION SCH ×4 (11:33→19:23)
[2016-11-26] MEDS: ACETAMINOPHEN TAB 500 MG TAB PO PRN (15:34)
[2016-11-26] MEDS: HYDROCORTISONE 10 MG TAB PO SCH (15:36)
--- NOTE | 2016-11-26 19:03 | PN ---
DATE OF SERVICE: 11/26/2016. He was seen again on 11/26/2016, he feels weak at this time, has been hemodynamically stable. His appetite is starting to improve. On physical examination, respiratory rate 16, pulse rate 80, temperature 98.7, O2 sat on room air is 94%, blood pressure is 137/87. HEENT: Pupils are equal. Chest reveals decreased breath sounds at the right side anteriorly. Cardiovascular system reveals an S1, S2. ABDOMEN: Soft. There is no edema. White count is 3.7, hemoglobin of 8.5, sodium 132, potassium 3.9, chloride 99, bicarb 27, BUN 9, creatinine 0.7. IMPRESSION: 1. Small cell cancer of the lung. 2. Postobstructive pneumonia. 3. Medical debility. 4. Hyponatremia. Continue antibiotics and breathing treatments, supportive care. Increase activity level.
[2016-11-27] MEDS: HYDROcodone/APAP 10-325MG 1 EACH TAB PO PRN ×3 (03:34→17:37)
[2016-11-27] MEDS: PIPERACILLIN-TAZOBACTAM 3.375 GM in DEXTROSE/WATER 1 50ML.BAG IVPB SCH ×2 (03:35→11:57)
[2016-11-27] MEDS: SODIUM CHLORIDE 0.9% 1,000 ML IV SCH ×2 (03:39→07:18)
[2016-11-27] MEDS: BUDESONIDE 0.5 MG/2 ML NEBU INHALATION SCH (06:59)
[2016-11-27] MEDS: IPRATROPIUM-ALBUTEROL 3 ML NEB INHALATION SCH ×2 (06:59→13:27)
[2016-11-27] MEDS: HYDROmorphone 1 MG/ML 1 ML SYRINGE IV PRN ×2 (07:16→17:33)
[2016-11-27] MEDS: VANCOMYCIN 1,500 MG in SODIUM CHLORIDE 0.9% 250 ML IVPB SCH (07:18)
[2016-11-27] MEDS: HYDROCORTISONE 20 MG TAB PO SCH (11:57)
[2016-11-27] MEDS: FAMOTIDINE 20 MG TAB PO SCH (11:57)
--- NOTE | 2016-11-27 13:43 | P.PN ---
Subjective Principal diagnosis: Small cell lung cancer Patient seen and examined. Patient states he is having significant pain. He is asking for pain medication. He states his breathing is at baseline. He denies fevers and chills. Objective - Vital Signs Vital signs: Vital Signs Temp 99.0 F 11/27/16 07:00 Pulse 116 H 11/27/16 13:37 Resp 16 11/27/16 07:00 BP 99/61 11/27/16 07:00 Pulse Ox 91 L 11/27/16 07:00 Intake & Output 11/26/16 11/27/16 11/27/16 18:59 06:59 18:59 Intake Total 1190 Output Total 300 Balance -300 1190 Intake: IV 600 Sodium Chloride 0.9% 1, 600 000 ml @ 75 mls/hr IV . [id number] NICKY Rx#:[id number] Oral 590 Output: Urine 300 Other: Voiding Method Urinal Urinal Urinal # Voids 2 - Exam Gen.: Patient is alert and oriented 3, no acute distress, cachectic Cardiovascular: Regular rate and rhythm, S1/S2 Lungs: Diminished breath sounds on the right Abdomen: Soft nontender nondistended positive bowel sounds Extremities: No edema - Labs CBC & Chem 7: 11/25/16 06:45 11/26/16 06:48 Labs: Microbiology - Last 24 Hours (Table) 11/21/16 10:08 Blood Culture - Final Blood No Growth after 144 hours Assessment and Plan Plan: Small cell lung cancer diagnosed in February 2016 Status post radiation with ongoing chemotherapy Increasing size of tumor on chest x-ray 2 out of 4 SIRS, possible sepsis Tracheobronchitis, possible postobstructive pneumonia Questionable Right ilium bone metastases Enlarging left adrenal mass History of tobacco abuse Cachexia Mild troponin elevation Dysphasia Unintentional weight loss Anemia Hyponatremia, 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
--- NOTE | 2016-11-27 14:12 | P.DS ---
Providers Date of admission: 11/21/16 11:20 Expected date of discharge: 11/27/16 Attending physician: Abhi Wilson Consults: 11/21/16 11:26 Consult Physician Stat Consulting Provider: Inder Johnson Consult Reason/Comments: Follow-up on his metastatic cancer Do you want consulting provider notified?: Yes Consult Physician Stat Consulting Provider: Jayant Womack Consult Reason/Comments: Elevated troponin, multiple risk factors Do you want consulting provider notified?: Yes 11/21/16 16:16 Consult Physician Routine Consulting Provider: Lily Huertas Consult Reason/Comments: pneumonia/hypotension Do you want consulting provider notified?: Yes 11/24/16 14:20 Consult Physician Stat Consulting Provider: Manas Anglin Consult Reason/Comments: [facility] Do you want consulting provider notified?: Yes 11/25/16 10:39 Consult Physician Routine Consulting Provider: Curt Pagan Consult Reason/Comments: infection Do you want consulting provider notified?: Yes Primary care physician: Abhi Wilson [facility] Course: 61-year-old male presented to the emergency room on the day of admission with a chief complaint of fever chills coughing decreased endurance poor appetite increased fatigue decreased functionality and activities of daily living. Patient was diagnosed with small cell lung cancer in February 2016. At that time patient was found to have a very large right upper lobe mass with bilateral adrenal metastases. Patient did undergo broncho-biopsy by Dr. Rodriguez on March 28 it did show small cell carcinoma. Patient did have a staging MRI of the brain did show 1-2 small lesions. Patient was started on chemotherapy. Patient did complete 6 cycles of chemotherapy in early July 2016. Patient also completed radiation therapy in August 2016. Patient was admitted in the hospital on August 2016 for right sided abdominal pain which radiated into the hip and the right lower extremity . X-rays at that time were negative. Patient had a CAT scan done of his abdomen which did show a distended gallbladder diagnosed with cholecystitis. That admission the patient underwent a cholecystectomy and subsequently was discharged. Patient returned this admission in October showing progression of his tumor. Patient was started on a second line of chemotherapy. Prior to even starting the chemotherapy patient was complaining of a decrease in his appetite increased weakness with persistent right lower sided pain. Patient had oral intake was declining developed fever at home subsequent the patient presented to the emergency room was dehydrated was patient being treated for obstructive pneumonia over the course of this hospitalization the patient continued to decline. Patient was indicating to his PCP Dr. Wilson that he was not going to undergo anymore chemotherapy and patient was requesting hospice care closer to his home he lives with a sister and Hussein. The comp field case manager did pursue the discharge plan patient was discharged to hospice care in the [facility] Chest x-ray that was obtained in November 21 did show a marked increase in the size of the right lung mass compatible with a neoplastic. Patient indicated that he did not want any further treatment is opting for comfort care hospice care to optimize pain control Impression New diagnosis of small cell lung cancer February 2016 on chemoradiation treatment last radiation treatment August 2016 Status post radiation with ongoing chemotherapy for treatment of small cell lung cancer diagnosed February 2016 Right eye blindness since childhood Significant history of nicotine dependency 4 pack a day quit in February 2016 Present on admission sepsis meet sirs criteria likely due to tracheal bronchitis with obstructive pneumonia Cachectic underweight BMI 20 with mild protein calorie malnutrition suspect due to poor caloric intake due to chronic illness Present on admission hyponatremia Unintentional weight loss Echocardiogram November 21 left ventricular systolic function normal with an EF between 60 and 65% Chest x-ray on November 21 marked increase in the size of the right lung mass compatible with a neoplastic compared to prior chest x-ray Physical debility with poor functionality due to comorbidity Mildly elevated troponins Present on admission febrile temp up 102.8 leukocytosis tachycardic meet SIRS criteria sepsis suspect due to right lung pneumonia not ruled out Anemia with no evidence of acute blood loss CAT scan abdomen pelvis done on November 23 show enlarging left adrenal mass with uncomplicated diverticulitis disease of the sigmoid colon Chest x-ray on November 21 shows a marked increased size of the right lung mass compatible with neoplastic measuring 15 x 12 cm in size has increased significantly from prior exam Anemia suspect of chronic illness no evidence of acute GI bleed Present on admission right hip pain unclear etiology Increasing size of an enlarging left adrenal mass Increasing size of the tumor as evident on a chest x-ray Questionable right ilium mass The above dictated assessment and findings were discussed with dr wilson . Impression and the plan of care have been dictated as directed. Renata Bowens nurse practitioner acting as a scribe for dr wilson Patient Condition at Discharge: Fair Plan - Discharge Summary New Discharge Prescriptions: New Acetaminophen Tab [Tylenol] 1,000 mg PO Q6HR PRN tab PRN Reason: Mild Pain Ipratropium-Albuterol Nebulize [Duoneb 0.5 mg-3 mg/3 ml Soln] 3 ml INHALATION RT-TID neb Prochlorperazine [Compazine] 10 mg PO Q6H PRN #30 tab PRN Reason: Nausea HYDROcodone/APAP 10-325MG [[place] 10-325] 1 each PO Q4H PRN #30 tab PRN Reason: MODERATE Pain fentaNYL 25MCG/HR PATCH [Duragesic 25MCG/HR] 1 patch TRANSDERM Q72H #10 patch LORazepam [Ativan] 1 mg PO TID PRN #30 tab PRN Reason: Agitation HYDROmorphone HCL [Dilaudid] 4 mg PO Q3HR PRN #30 tab PRN Reason: Moderate To Severe Pain Continue Acetaminophen Tab [Tylenol] 1,000 mg PO Q6HR PRN PRN Reason: Pain Discontinued Prochlorperazine [Compazine] 10 mg PO Q6H PRN PRN Reason: Nausea Aloxi 25 mcg IV DIRECTED Topotecan HCl [Hycamtin] 4 mg IV Q7D No Action Hydrocortisone [Cortef] 20 mg PO DAILY Hydrocortisone [Cortef] 10 mg PO DAILY@1400 Docusate [Colace] 100 mg PO BID PRN PRN Reason: Constipation Famotidine [Pepcid] 20 mg PO DAILY Hydrocodone/Acetaminophen [[place] 10-325 Tablet] 1 each PO Q6H PRN PRN Reason: Pain Discharge Medication List Acetaminophen Tab [Tylenol] 1,000 mg PO Q6HR PRN 11/21/16 [History] Docusate [Colace] 100 mg PO BID PRN 11/21/16 [History] Famotidine [Pepcid] 20 mg PO DAILY 11/21/16 [History] Hydrocodone/Acetaminophen [[place] 10-325 Tablet] 1 each PO Q6H PRN 11/21/16 [ History] Hydrocortisone [Cortef] 10 mg PO DAILY@1400 11/21/16 [History] Hydrocortisone [Cortef] 20 mg PO DAILY 11/21/16 [History] Acetaminophen Tab [Tylenol] 1,000 mg PO Q6HR PRN tab 11/27/16 [Rx] HYDROcodone/APAP 10-325MG [[place] 10-325] 1 each PO Q4H PRN #30 tab 11/27/16 [Rx] HYDROmorphone HCL [Dilaudid] 4 mg PO Q3HR PRN #30 tab 11/27/16 [Rx] Ipratropium-Albuterol Nebulize [Duoneb 0.5 mg-3 mg/3 ml Soln] 3 ml INHALATION RT -TID neb 11/27/16 [Rx] LORazepam [Ativan] 1 mg PO TID PRN #30 tab 11/27/16 [Rx] Prochlorperazine [Compazine] 10 mg PO Q6H PRN #30 tab 11/27/16 [Rx] fentaNYL 25MCG/HR PATCH [Duragesic 25MCG/HR] 1 patch TRANSDERM Q72H #10 patch [Rx] Follow up Appointment(s)/Referral(s): Abhi Wilson MD [Primary Care Provider] - 1-2 days Discharge Disposition: [facility]CH TO [facility]OS[facility]
[2016-11-27 15:18] VITALS: BP 92/52; PULSE 132; TEMP 97.5
[2016-11-27] MEDS: HYDROCORTISONE 10 MG TAB PO SCH (16:36)
== END 2016-11-27 17:45 | disposition hospice, inpatient (51) | DRG 871 ==
LOC: EC 09:08 → 6SEL 11:20 → 5ONC 11-23 13:19
PROVIDERS: ADMIT Family Medicine; ATTEND Family Medicine
DX: A41.9 Sepsis, unspecified organism (principal); J18.9 Pneumonia, unspecified organism; R64 Cachexia; C79.31 Secondary malignant neoplasm of brain; C79.71 Secondary malignant neoplasm of right adrenal gland; C79.72 Secondary malignant neoplasm of left adrenal gland; J44.0 Chronic obstructive pulmonary disease with (acute) lower respiratory infection; K57.92 Diverticulitis of intestine, part unspecified, without perforation or abscess without bleeding; E27.1 Primary adrenocortical insufficiency; C34.90 Malignant neoplasm of unspecified part of unspecified bronchus or lung; E44.1 Mild protein-calorie malnutrition; E87.1 Hypo-osmolality and hyponatremia; E86.0 Dehydration; D63.8 Anemia in other chronic diseases classified elsewhere; Z68.20 Body mass index [BMI] 20.0-20.9, adult; F17.210 Nicotine dependence, cigarettes, uncomplicated; H54.41 Blindness, right eye, normal vision left eye; K21.9 Gastro-esophageal reflux disease without esophagitis; M19.90 Unspecified osteoarthritis, unspecified site; M51.36 Other intervertebral disc degeneration, lumbar region; R09.02 Hypoxemia; R13.10 Dysphagia, unspecified; Z82.49 Family history of ischemic heart disease and other diseases of the circulatory system; Z91.81 History of falling; Z92.21 Personal history of antineoplastic chemotherapy; Z92.3 Personal history of irradiation; Z51.5 Encounter for palliative care
CPT/HCPCS: 36415; 71020; 74177; 78306; 80048; 80053; 80202; 81001; 82550; 82553; 82728; 83540; 83550; 83605; 84484; 85025; 85610; 85730; 87040; 87086; 93005; 93306; 94640; 94760; 96361; 96365; 96367; 99291